=== PATIENT | female | born 1970 | race African-American/Black ===

== ENCOUNTER 2016-02-26 09:34 | Inpatient (IN) | payer OTHER ==
[2016-02-26 10:18] VITALS: BMI 41.5
--- NOTE | 2016-02-26 11:49 | HP ---
CIWA Score - CIWA Score Nausea/Vomitin-Int. Nausea w/Dry Heave Muscle Tremors: 3 Anxiety: 4-Mod. Anxious/Guarded Agitation: 4-Moderately Restless Paroxysmal Sweats: No Perspiration Orientation: 0-Oriented Tacttile Disturbances: 3-Moderate Itch/Numb/Burn Auditory Disturbances: 0-None Visual Disturbances: 0-None Headache: 2-Mild CIWA-Ar Total Score: 20 Admission ROS S - HPI Chief Complaint: DETOX TX FOR ALCOHOL AND COCAINE DEPENDENCE Allergies/Adverse Reactions: Allergies Allergy/AdvReac Type Severity Reaction Status Date / Time Penicillins Allergy Mild Hives Verified 01/22/16 21:31 Fish Containing Products Allergy Hives Verified 02/26/16 11:03 tomatoes Allergy Hives Uncoded 02/26/16 11:03 History of Present Illness: 45 Y/O AA/FEMALE WITH A HX OF ALCOHOL AND COCAINE DEPENDENCE SEEKING DETOX TX. PT STATES ON/OFF USE OF HEROIN. TOXICOLOGY IS NEGATIVE TODAY. Exam Limitations: No Limitations - Ebola screening Have you traveled outside of the country in the last 21 days: No Have you had contact with anyone from an Ebola affected area: No Have you been sick,other than usual withdrawal symptoms: No Do you have a fever: No - Review of Systems Constitutional: Chills, Loss of Appetite, Night Sweats, Changes in sleep EENT: reports: Blurred Vision, Tearing, Nose Congestion, Dental Problems ( MISSING TEETH) Respiratory: reports: Cough, Shortness of Breath (HX ASTMA), Wheezing Cardiac: reports: Lightheadedness GI: reports: Constipated, Diarrhea, Nausea, Poor Appetite, Poor Fluid Intake : reports: Frequency, Urgency Musculoskeletal: reports: Back Pain, Joint Pain, Muscle Pain Integumentary: reports: No Symptoms Reported Neuro: reports: Tremors, Unsteady Gait, Dizziness, Other (BLACKOUTS) Endocrine: reports: No Symptoms Reported Psychiatric: reports: Orientated x3, Anxious, Depressed (SOMETIMES), other (HX SCHIZOPHRENIA) Other Systems: Reviewed and Negative Patient History - Patient Medical History Hx Anemia: Yes (NO TREATMENT) Hx Asthma: Yes (ON MDI) Hx Chronic Obstructive Pulmonary Disease (COPD): No Hx Cancer: No Hx Cardiac Disorders: No Hx Congestive Heart Failure: No Hx Hypertension: No Hx Hypercholesterolemia: No Hx Pacemaker: No HX Cerebrovascular Accident: No Hx Seizures: No Hx Dementia: No Hx Diabetes: No Hx Gastrointestinal Disorders: No Hx Liver Disease: No Hx Genitourinary Disorders: No Hx Sexually Transmitted Disorders: Yes (GC as teenager) Hx Renal Disease (ESRD): No Hx Thyroid Disease: No Hx Human Immunodeficiency Virus (HIV): No Hx Hepatitis C: No Hx Depression: Yes (SOMETIMES) Hx Suicide Attempt: Yes (X2- WITH BENADRYL/?PILLS; DENIES CURRENT S/H IDEATIONS) Hx Bipolar Disorder: No Hx Schizophrenia: Yes - Patient Surgical History Past Surgical History: Yes Hx Neurologic Surgery: No Hx Cataract Extraction: No Hx Cardiac Surgery: No Hx Lung Surgery: No Hx Breast Surgery: No Hx Breast Biopsy: No Hx Abdominal Surgery: Yes (Sx for twisted intestine in 2003) Hx Appendectomy: No Hx Cholecystectomy: Yes (in 2003) Hx Genitourinary Surgery: No Hx Section: Yes (3) Hx Orthopedic Surgery: No Hx Hysterectomy: No Anesthesia Reaction: No - PPD History Previous Implant?: Yes Documented Results: Positive w/o proof Implanted On Prior [facility] Admission?: No PPD to be Administered?: No - Reproductive History Patient is a Female of Child Bearing Age (11 -55 yrs old): Yes Last Menstrual Period: 02/12/16 Patient : No - Smoking Cessation Smoking history: Current every day smoker Have you smoked in the past 12 months: Yes Aproximately how many cigarettes per day: 10 Cigars Per Day: 0 Hx Chewing Tobacco Use: No Initiated information on smoking cessation: Yes 'Breaking Loose' booklet given: 02/26/16 - Substance & Tx. History Hx Alcohol Use: Yes (VODKA/BEER) Hx Substance Use: Yes (CRACK) Substance Use Type: Alcohol, Cocaine Hx Substance Use Treatment: Yes ([facility]) - Substances Abused Alcohol Route: Oral Frequency: Daily Amount used: vodka(2 pints)/beer(6pk 16 oz cans) Age of first use: 14 Date of Last Use: 02/26/16 Crack Route: Smoking Frequency: Daily Amount used: $100-150 Age of first use: 19 Date of Last Use: 02/25/16 Family Disease History - Family Disease History Family Disease History: Heart Disease: Mother (), CA: Father () Admission Physical Exam BHS - Vital Signs Vital Signs: Vital Signs - 24 hr 02/26/16 10:14 Temperature 96.1 F L Pulse Rate 88 Respiratory 18 Rate Blood Pressure 109/53 - Physical General Appearance: Yes: Moderate Distress, Irritable, Anxious HEENTM: Yes: EOMI, Normocephalic, RALPH, Pharynx Normal Respiratory: Yes: Chest Non-Tender, Normal Breath Sounds, No Respiratory Distress, Rhonchi, Wheezing, Expiration Neck: Yes: Supple, Trachea in good position Breast: Yes: Breast Exam Deferred Cardiology: Yes: Regular Rhythm, Regular Rate, S1, S2 Abdominal: Yes: Normal Bowel Sounds, Non Tender, Soft, Protuberent Genitourinary: Yes: Other (N/C) Back: Yes: Within Normal Limits Musculoskeletal: Yes: full range of Motion, Gait Steady Extremities: Yes: Normal Range of Motion, Non-Tender Neurological: Yes: oil rag washer II-XII NML intact, Fully Oriented, Alert Integumentary: Yes: Dry, Warm Lymphatic: Yes: Within Normal Limits - Diagnostic (1) Asthma Current Visit: Yes Status: Chronic Qualifiers: Asthma severity: moderate persistent Asthma complication type: uncomplicated Qualified Code(s): J45.40 - Moderate persistent asthma, uncomplicated (2) Back pain Current Visit: Yes Status: Chronic Qualifiers: Back pain location: low back pain (3) Anemia Current Visit: Yes Status: Chronic Qualifiers: Anemia type: iron deficiency Iron deficiency anemia type: inadequate dietary iron intake Qualified Code(s): D50.8 - Other iron deficiency anemias Comment: NO TREATMENT LAB PENDING (4) Arthritis Current Visit: Yes Status: Chronic Comment: RIGHT KNEE (5) Nicotine dependence Current Visit: Yes Status: Chronic Qualifiers: Nicotine product type: cigarettes Substance use status: uncomplicated Qualified Code(s): F17.210 - Nicotine dependence, cigarettes, uncomplicated (6) Cocaine dependence, uncomplicated Current Visit: Yes Status: Acute (7) Alcohol dependence with uncomplicated withdrawal Current Visit: Yes Status: Acute Cleared for Admission [facility] - Detox or Rehab [facility] Level of Care: Medically Managed Detox Regimen/Protocol: Librium [facility] Breath Alcohol Content Breath Alcohol Content: 0.061 Urine Pregancy Test - Result Urine Test Results: Negative- NO Line Present Urine Drug Screen - Results Drug Screen Negative: No Urine Drug Screen Results: WYATT-Cocaine
[2016-02-26] MEDS ORDERED: hydrOXYzine PAMOATE 25 MG CAPSULE (FP) PO PRN (11:57)
[2016-02-26] MEDS ORDERED: MAG HYDROX/AL HYDROX/SIMETH 30 ML UNIT-DOSE CUP PO PRN (11:57)
[2016-02-26] MEDS ORDERED: diphenhydrAMINE HCL 50 MG CAPSULE PO PRN (11:57)
[2016-02-26] MEDS ORDERED: P-EPHED 60MG/TRIPROLIDI 2.5MG TABLET PO PRN (11:57)
[2016-02-26] MEDS ORDERED: MENTHOL/PHENOL 1 EACH UD MM PRN (11:57)
[2016-02-26] MEDS ORDERED: ACETAMINOPHEN 325 MG TABLET (FP) PO PRN (11:57)
[2016-02-26] MEDS ORDERED: LOPERAMIDE HCL 2 MG CAPSULE PO PRN (11:57)
[2016-02-26] MEDS ORDERED: MAGNESIUM HYDROX 2400MG/30ML ORAL SUSPENSION 30 ML CUP PO PRN (11:57)
[2016-02-26] MEDS ORDERED: chlordiazePOXIDE HCL 25 MG CAPSULE PO PRN (11:57)
[2016-02-26] MEDS ORDERED: IBUPROFEN 400 MG TABLET (FP) PO PRN (11:57)
[2016-02-26] MEDS ORDERED: NICOTINE POLACRILEX 2 MG GUM BUC PRN (11:57)
[2016-02-26] MEDS ORDERED: MAGNESIUM CITRATE 300 ML BOTTLE PO PRN (11:57)
[2016-02-26] MEDS ORDERED: guaiFENesin/D-METHORPHAN HB 10 ML UNIT-DOSE CUPS PO PRN (11:57)
[2016-02-26] MEDS ORDERED: chlordiazePOXIDE HCL 25 MG CAPSULE PO ONE (12:27)
[2016-02-26] MEDS: BUDESONIDE/FORMETEROL FUMARATE 80/4.5 mcg INHALER IH SCH ×2 (12:42→22:14)
[2016-02-26] MEDS: NICOTINE 14 MG/24 HOURS TOPICAL PATCH TD SCH (12:44)
[2016-02-26 14:31] LABS: HIV 1 & 2 AB NEGATIVE; HIV 1 AGp24 NEGATIVE
[2016-02-26] MEDS: ALBUTEROL SO4 2.5/IPRATROPIUM 0.5 INH SOL 3 ML VIAL.NEB. NEB SCH ×2 (15:05→18:42)
[2016-02-26] MEDS: chlordiazePOXIDE HCL 25 MG CAPSULE PO SCH ×2 (17:43→22:15)
[2016-02-26] MEDS: THIAMINE HCL 100 MG TABLET (FP) PO SCH (22:15)
[2016-02-26] MEDS: ALBUTEROL SO4 6.7 GM HFA INHALER IH PRN (22:16)
[2016-02-27] MEDS: ALBUTEROL SO4 2.5/IPRATROPIUM 0.5 INH SOL 3 ML VIAL.NEB. NEB PRN (05:01)
[2016-02-27] MEDS: chlordiazePOXIDE HCL 25 MG CAPSULE PO SCH ×4 (05:26→23:00)
[2016-02-27] MEDS: ALBUTEROL SO4 2.5/IPRATROPIUM 0.5 INH SOL 3 ML VIAL.NEB. NEB SCH (09:00)
[2016-02-27 10:01] LABS: MCHC 30.6 g/dl (32.0-36.0); MEAN CELL VOLUME 63.8 fl (80-96); MEAN PLT VOLUME 9.1 fl (7.5-11.1); PLATELET COUNT 286 K/MM3 (134-434); RDW 27.7 % (11.6-15.6); WHITE BLOOD COUNT 5.5 K/mm3 (4.0-10.0)
[2016-02-27 10:33] LABS: URINE APPEARANCE CLEAR; URINE BILIRUBIN NEGATIVE (NEGATIVE); URINE BLOOD NEGATIVE (NEGATIVE); URINE COLOR LT. YELLOW; URINE GLUCOSE (UA) NEGATIVE (NEGATIVE); URINE KETONE NEGATIVE (NEGATIVE); URINE LEUK ESTERASE NEGATIVE (NEGATIVE); URINE NITRITE NEGATIVE (NEGATIVE); URINE PROTEIN NEGATIVE (NEGATIVE); URINE UROBILINOGEN 0.2 E.U/dl E.U./dl (0.2-1.0)
[2016-02-27 10:35] LABS: MCH 19.5 pg (25.7-33.7)
[2016-02-27 10:36] LABS: ALBUMIN 3.6 g/dl (3.4-5.0); ALK PHOS 81 U/L (45-117); ANION GAP 9 (8-16); BILIRUBIN,TOTAL 0.2 mg/dL (0.2-1.0); CALCIUM 7.9 mg/dL (8.5-10.1); CO2 20 mmol/L (21-32); CREATININE 0.7 mg/dL (0.55-1.02); GLUCOSE,RANDOM 81 mg/dL (74-106); SGOT/AST 11 U/L (15-37); SGPT/ALT 17 U/L (12-78); TOT PROT 6.3 g/dl (6.4-8.2)
[2016-02-27] MEDS: NICOTINE 14 MG/24 HOURS TOPICAL PATCH TD SCH (10:50)
[2016-02-27] MEDS: PRENATAL VITAMINS W/ FOLIC ACID TABLET (FP) PO SCH (10:51)
[2016-02-27] MEDS: BUDESONIDE/FORMETEROL FUMARATE 80/4.5 mcg INHALER IH SCH ×2 (10:55→23:01)
--- NOTE | 2016-02-27 11:13 | CONSULT ---
[facility] Psychiatric Consult - Data Date of interview: 02/27/16 Admission source: [facility] Identifying data: Readmission to [facility] for this 45 y/o AA female seeking detox treatment on for alcohol and cocaine dependence.Patient is single, a mother of eight,domiciled,unemployed and supported on SSI benefits. Substance Abuse History: - Smoking Cessation. Smoking history: Current every day smoker. Have you smoked in the past 12 months: Yes. Aproximately how many cigarettes per day: 10. Cigars Per Day: 0. Hx Chewing Tobacco Use: No. Initiated information on smoking cessation: Yes. 'Breaking Loose' booklet given : 02/26/16. - Substance & Tx. History. Hx Alcohol Use: Yes (VODKA/BEER). Hx Substance Use: Yes (CRACK). Substance Use Type: Alcohol, Cocaine. Hx Substance Use Treatment: Yes ([facility]-DETOX). - Substances Abused. Alcohol. Route: Oral. Frequency: Daily. Amount used: vodka(2 pints)/beer(6pk 16 oz cans ). Age of first use: 14. Date of Last Use: 02/26/16. Crack. Route: Smoking. Frequency: Daily. Amount used: $100-150. Age of first use: 19. Date of Last Use: 02/25/16. Confirmed by patient. Medical History: Remarkable for a history of bronchial asthma,anemia,obesity and past treatment for gonorrhea (during adolescence). Psychiatric History: Patient admits to a history of multiple psychiatric hospitalizations since age 17 (reported onset of mental illness).Diagnosed with schizophrenia." I have been admitted to almost every hospital." Ms Marsh is known to [facility] and [facility] (as of 2016).She gets outpatient psychiatric services at [facility].Maintenance medications (as reported by patient) are :abilify 10 mg /day + seroquel 200 mg/hs (100 mg/hs as per pharmacy claims of 01/2016).Patient denies history of suicide attempts. Physical/Sexual Abuse/Trauma History: Patient denies. Additional Comment: Urine Drug Screen Results: WYATT-Cocaine. .Noted. Mental Status Exam - Mental Status Exam Alert and Oriented to: Time, Place, Person Cognitive Function: Good Patient Appearance: Well Groomed (obese) Mood: Withdrawn Affect: Appropriate, Normal Range Patient Behavior: Sedated (mild sedation), Fatigued Speech Pattern: Clear Voice Loudness: Normal Thought Process: Goal Oriented Thought Disorder: Bizarre Hallucinations: Denies Suicidal Ideation: Denies Homicidal Ideation: Denies Insight/Judgement: Poor Sleep: Fair Appetite: Good Muscle strength/Tone: Normal Gait/Station: Normal Psychiatric Findings - Problem List ([place] 1, 2,3) (1) Alcohol dependence with uncomplicated withdrawal Current Visit: Yes Status: Acute (2) Cocaine dependence, uncomplicated Current Visit: Yes Status: Acute (3) Nicotine dependence Current Visit: Yes Status: Acute Qualifiers: Nicotine product type: cigarettes Substance use status: uncomplicated Qualified Code(s): F17.210 - Nicotine dependence, cigarettes, uncomplicated (4) Schizophrenia Current Visit: Yes Status: Chronic (5) Anemia Current Visit: Yes Status: Chronic Qualifiers: Anemia type: iron deficiency Iron deficiency anemia type: inadequate dietary iron intake Qualified Code(s): D50.8 - Other iron deficiency anemias Comment: NO TREATMENT LAB PENDING (6) Arthritis Current Visit: Yes Status: Chronic Comment: RIGHT KNEE (7) Asthma Current Visit: Yes Status: Chronic Qualifiers: Asthma severity: moderate persistent Asthma complication type: uncomplicated Qualified Code(s): J45.40 - Moderate persistent asthma, uncomplicated (8) Back pain Current Visit: Yes Status: Chronic Qualifiers: Back pain location: low back pain - Initial Treatment Plan Initial Treatment Plan: Psychoeducation.Detoxification.Medications : abilify 10 mg po daily + seroquel 100 mg po hs.Side effects/benefits discussed with patient.She agrees with his careplan.Observation.
[2016-02-27 11:42] LABS: ANISOCYTOSIS 3+; HYPOCHROMIA 3+; MICROCYTOSIS 2+; OVALOCYTES FEW
[2016-02-27] MEDS ORDERED: predniSONE 20 MG TABLET (UD) PO ONE (11:46)
--- NOTE | 2016-02-27 14:01 | PN ---
[facility] CIWA - CIWA Score Nausea/Vomitin Muscle Tremors: 3 Anxiety: 3 Agitation: 3 Paroxysmal Sweats: 3 Orientation: 0-Oriented Tacttile Disturbances: 1-Very Mild Itch/Numbness Auditory Disturbances: 0-None Visual Disturbances: 0-None Headache: 0-None Present CIWA-Ar Total Score: 16 S Progress Note (SOAP) Subjective: interrupted sleep,sweats, shakes wheezing Objective: 02/27/16 13:52 Vital Signs Temperature 96.3 F L 02/27/16 06:55 Pulse Rate 90 02/27/16 09:46 Respiratory Rate 20 02/27/16 09:46 Blood Pressure 109/76 02/27/16 09:46 O2 Sat by Pulse Oximetry (%) Laboratory Tests 02/26/16 02/27/16 02/27/16 12:15 06:00 06:00 WBC 5.5 RBC 4.59 Hgb 9.0 L Hct 29.3 L MCV 63.8 L MCHC 30.6 L RDW 27.7 H Plt Count 286 MPV 9.1 Hypochromic-Microcytic 3+ Anisocytosis 3+ Microcytosis 2+ Ovalocytes Few Sodium 141 Potassium 4.0 Chloride 112 H Carbon Dioxide 20 L D Anion Gap 9 BUN 13 D Creatinine 0.7 Creat Clearance w eGFR > 60 Random Glucose 81 Calcium 7.9 L Total Bilirubin 0.2 AST 11 L D ALT 17 Alkaline Phosphatase 81 D Total Protein 6.3 L Albumin 3.6 Urine Color Urine Appearance Urine pH Ur Specific [place] Urine Protein Urine Glucose (UA) Urine Ketones Urine Blood Urine Nitrite Urine Bilirubin Urine Urobilinogen Ur Leukocyte Esterase RPR Titer HIV 1&2 Antibody Screen Negative HIV P24 Antigen Negative 02/27/16 02/27/16 06:00 08:00 WBC RBC Hgb Hct MCV MCHC RDW Plt Count MPV Hypochromic-Microcytic Anisocytosis Microcytosis Ovalocytes Sodium Potassium Chloride Carbon Dioxide Anion Gap BUN Creatinine Creat Clearance w eGFR Random Glucose Calcium Total Bilirubin AST ALT Alkaline Phosphatase Total Protein Albumin Urine Color Lt. yellow Urine Appearance Clear Urine pH 6.0 Ur Specific [place] 1.015 Urine Protein Negative Urine Glucose (UA) Negative Urine Ketones Negative Urine Blood Negative Urine Nitrite Negative Urine Bilirubin Negative Urine Urobilinogen 0.2 e.u/dl Ur Leukocyte Esterase Negative RPR Titer Nonreactive HIV 1&2 Antibody Screen HIV P24 Antigen pt aox3 , mod whheezing ,sitting up in bed Assessment: 02/27/16 13:53 withdrawl sx's Plan: cont, detox increase fluids duoneb prednisone 40mg /d symbicort bid
[2016-02-27] MEDS: FERROUS SO4 325 MG TABLET (FP) PO SCH (17:38)
[2016-02-27] MEDS: ALBUTEROL SO4 6.7 GM HFA INHALER IH PRN (17:38)
[2016-02-27] MEDS: THIAMINE HCL 100 MG TABLET (FP) PO SCH (23:01)
[2016-02-27] MEDS: QUEtiapine FUMARATE 100 MG TABLET (FP) PO SCH ×2 (23:01→23:30)
[2016-02-28] MEDS: chlordiazePOXIDE HCL 25 MG CAPSULE PO SCH ×2 (05:40→10:45)
[2016-02-28] MEDS: ALBUTEROL SO4 6.7 GM HFA INHALER IH PRN (05:42)
[2016-02-28] MEDS ORDERED: predniSONE 20 MG TABLET (UD) PO SCH (10:00)
[2016-02-28] MEDS ORDERED: ARIPiprazole 10 MG TABLET PO SCH (10:00)
--- NOTE | 2016-02-28 10:20 | EKG ---
Test Reason : Blood Pressure : / mmHG Vent. Rate : 077 BPM Atrial Rate : 077 BPM P-R Int : 172 ms QRS Dur : 092 ms QT Int : 390 ms P-R-T Axes : 063 008 011 degrees QTc Int : 441 ms NORMAL SINUS RHYTHM NORMAL ECG WHEN COMPARED WITH ECG OF 23-JAN-2016 02:28, NO SIGNIFICANT CHANGE WAS FOUND Confirmed by SHANON ABAD MD ([id number]) on 02/28/2016 10:20:13 AM Referred By: Confirmed By:SHANON ABAD MD
[2016-02-28] MEDS: BUDESONIDE/FORMETEROL FUMARATE 80/4.5 mcg INHALER IH SCH ×2 (10:45→23:00)
[2016-02-28] MEDS: PRENATAL VITAMINS W/ FOLIC ACID TABLET (FP) PO SCH (10:45)
[2016-02-28] MEDS: FERROUS SO4 325 MG TABLET (FP) PO SCH ×3 (10:45→18:00)
[2016-02-28] MEDS: NICOTINE 14 MG/24 HOURS TOPICAL PATCH TD SCH (10:48)
--- NOTE | 2016-02-28 11:47 | PN ---
[facility] CIWA - CIWA Score Nausea/Vomitin Muscle Tremors: 2 Anxiety: 2 Agitation: 2 Paroxysmal Sweats: 2 Orientation: 0-Oriented Tacttile Disturbances: 1-Very Mild Itch/Numbness Auditory Disturbances: 0-None Visual Disturbances: 0-None Headache: 0-None Present CIWA-Ar Total Score: 11 [facility] Progress Note (SOAP) Subjective: interrupted sleep, mild sweats but better Objective: 02/28/16 11:46 Vital Signs Temperature 99 F 02/28/16 10:22 Pulse Rate 101 H 02/28/16 10:22 Respiratory Rate 18 02/28/16 10:22 Blood Pressure 139/60 02/28/16 10:22 O2 Sat by Pulse Oximetry (%) Laboratory Tests 02/26/16 02/27/16 02/27/16 12:15 06:00 06:00 WBC 5.5 RBC 4.59 Hgb 9.0 L Hct 29.3 L MCV 63.8 L MCHC 30.6 L RDW 27.7 H Plt Count 286 MPV 9.1 Hypochromic-Microcytic 3+ Anisocytosis 3+ Microcytosis 2+ Ovalocytes Few Sodium 141 Potassium 4.0 Chloride 112 H Carbon Dioxide 20 L D Anion Gap 9 BUN 13 D Creatinine 0.7 Creat Clearance w eGFR > 60 Random Glucose 81 Calcium 7.9 L Total Bilirubin 0.2 AST 11 L D ALT 17 Alkaline Phosphatase 81 D Total Protein 6.3 L Albumin 3.6 Urine Color Urine Appearance Urine pH Ur Specific [place] Urine Protein Urine Glucose (UA) Urine Ketones Urine Blood Urine Nitrite Urine Bilirubin Urine Urobilinogen Ur Leukocyte Esterase RPR Titer HIV 1&2 Antibody Screen Negative HIV P24 Antigen Negative 02/27/16 02/27/16 06:00 08:00 WBC RBC Hgb Hct MCV MCHC RDW Plt Count MPV Hypochromic-Microcytic Anisocytosis Microcytosis Ovalocytes Sodium Potassium Chloride Carbon Dioxide Anion Gap BUN Creatinine Creat Clearance w eGFR Random Glucose Calcium Total Bilirubin AST ALT Alkaline Phosphatase Total Protein Albumin Urine Color Lt. yellow Urine Appearance Clear Urine pH 6.0 Ur Specific [place] 1.015 Urine Protein Negative Urine Glucose (UA) Negative Urine Ketones Negative Urine Blood Negative Urine Nitrite Negative Urine Bilirubin Negative Urine Urobilinogen 0.2 e.u/dl Ur Leukocyte Esterase Negative RPR Titer Nonreactive HIV 1&2 Antibody Screen HIV P24 Antigen pt aox3 in nad ambulating Assessment: 02/28/16 11:46 withdrawl sx's Plan: cont. detox increase fluids
[2016-02-28] MEDS: chlordiazePOXIDE 5 MG CAPSULE PO SCH ×2 (18:00→23:01)
[2016-02-28] MEDS: THIAMINE HCL 100 MG TABLET (FP) PO SCH (23:00)
[2016-02-28] MEDS: QUEtiapine FUMARATE 100 MG TABLET (FP) PO SCH (23:00)
[2016-02-29] MEDS: ALBUTEROL SO4 2.5/IPRATROPIUM 0.5 INH SOL 3 ML VIAL.NEB. NEB PRN (03:39)
[2016-02-29 06:00] VITALS: BP 137/78; PULSE 95; TEMP 97.9
--- NOTE | 2016-02-29 07:54 | PN ---
[id number]. HAD JUST COMPLETED HER DUONEB NEB. TX. NO SIGNS OF RESPIRATORY DISTRESS NOTED. V/S WNL, BREATHING WAS UNLABORED AND NO RETRACTIONS NOTED. WHEEZING NOTED TO LEFT UPPER LUNG. [facility] INFORMED THE PT SHE WOULD CONTINUE TO BE MONITORED AT DETOX AND A TRANSFER TO THE ER WAS NOT MERITED AT THE MOMENT. HOWEVER THE PATIENT WAS ADAMANT SHE WANTED TO LEAVE. SHE REPORTED SHE LIVES [place]BY. [facility] DIALED HER HOME PHONE NUMBER AND THE PT SPOKE TO A RELATIVE AND SHE ASKED THAT THEY HAVE PICK HER UP FROM DETOX AND WALK WITH HER HOME. PT. ENCOURAGED TO FOLLOW-UP WITH HER PCP. Last Vital Signs Temp Pulse Resp BP Pulse Ox 97.9 F 95 H 20 137/78 97% 02/29/16 05:59 02/29/16 05:59 02/29/16 05:59 02/29/16 05:59
--- NOTE | 2016-02-29 08:07 | DS ---
[facility] Detox Discharge Summary Admission Date: 02/26/16 Discharge Date: 02/29/16 - History Present History: Alcohol Dependence, Cocaine Dependence - Physical Exam Results Vital Signs: Vital Signs Temperature 97.9 F 02/29/16 05:59 Pulse Rate 95 H 02/29/16 05:59 Respiratory Rate 20 02/29/16 05:59 Blood Pressure 137/78 02/29/16 05:59 O2 Sat by Pulse Oximetry (%) - Treatment Hospital Course: Detox Protocol Followed - Medication Discharge Medications: Ambulatory Orders Aripiprazole [Abilify -] 15 mg PO DAILY 09/18/11 Benztropine Mesylate [Cogentin -] 2 mg PO BID 09/18/11 Quetiapine Fumarate [Seroquel -] 200 mg PO HS 09/18/11 Lamotrigine [Lamictal -] 25 mg PO BID #60 tablet 12/12/15 Ferrous Sulfate [Feosol] 325 mg PO TIDCM #90 ud 12/15/15 Albuterol Sulfate Inhaler - [Ventolin HFA Inhaler -] 2 puff IH Q4H PRN #1 inhaler 01/24/16 Budesonide/Formeterol Fumarate [SYMBICORT 80/4.5mcg -] 2 puff IH BID #1 inhaler 01/24/16 Oxycodone HCl [Roxicodone -] 10 mg PO BID #6 tablet MDD 2 01/25/16 Prednisone [Deltasone -] 15 mg PO ASDIR PRN 02/26/16 Aripiprazole [Abilify -] 10 mg PO DAILY #30 tablet 02/27/16 Quetiapine Fumarate [Seroquel] 100 mg PO HS #30 tablet 02/27/16 - Diagnosis (1) Alcohol dependence with uncomplicated withdrawal Status: Chronic (2) Cocaine dependence, uncomplicated Status: Chronic (3) Nicotine dependence Status: Chronic Qualifiers: Nicotine product type: cigarettes Substance use status: uncomplicated Qualified Code(s): F17.210 - Nicotine dependence, cigarettes, uncomplicated (4) Anemia Status: Chronic Qualifiers: Anemia type: iron deficiency Iron deficiency anemia type: inadequate dietary iron intake Qualified Code(s): D50.8 - Other iron deficiency anemias (5) Arthritis Status: Chronic (6) Asthma Status: Chronic Qualifiers: Asthma severity: moderate persistent Asthma complication type: uncomplicated Qualified Code(s): J45.40 - Moderate persistent asthma, uncomplicated (7) Schizophrenia Status: Chronic - AMA Did Patient Leave Against Medical Advice: Yes (wants to go to ED to get iv steriods )
[2016-02-29] MEDS ORDERED: chlordiazePOXIDE HCL 10 MG CAPSULE PO SCH (17:00)
== END 2016-02-29 04:40 | disposition left against medical advice (07) | DRG 770 ==
LOC: YASAS 09:34 → Y6N 11:11
PROVIDERS: ADMIT Internal Medicine Addiction Medicine; ATTEND Internal Medicine Addiction Medicine
PROC: HZ2ZZZZ Detoxification Services for Substance Abuse Treatment (ICD-10-PCS; principal; 2016-02-26)
DX: F10.230 Alcohol dependence with withdrawal, uncomplicated (principal); F14.20 Cocaine dependence, uncomplicated; F17.210 Nicotine dependence, cigarettes, uncomplicated; F20.9 Schizophrenia, unspecified; D50.8 Other iron deficiency anemias; M12.9 Arthropathy, unspecified; J45.40 Moderate persistent asthma, uncomplicated; E66.9 Obesity, unspecified; Z68.41 Body mass index [BMI] 40.0-44.9, adult; M54.5 Low back pain; Z87.42 Personal history of other diseases of the female genital tract; Z91.5 Personal history of self-harm
CPT/HCPCS: 36415; 80053; 81003; 85027; 86593; 87389; 93005; 93010; 94640

== ENCOUNTER 2016-04-24 15:12 | Emergency (ER) | payer OTHER ==
[2016-04-24 16:00] VITALS: BMI 42.9
--- NOTE | 2016-04-24 16:00 | PDOC ---
Rapid Medical Evaluation Time Seen by Provider: 04/24/16 15:57 Medical Evaluation: I have performed a brief in-person evaluation of this patient. The patient presents with a chief complaint of: 45 yo F history SBO, cholecystectomy presents with 2-3 hours of lower abdominal pain. Pertinent physical exam findings: Appears uncomfortable. Diffusely tender to abdomen, worst in LUQ. I have ordered the following: UA, basic bloodwork The patient will proceed to the ED for further evaluation
--- NOTE | 2016-04-24 17:25 | PDOC ---
History of Present Illness - General History Source: Patient Exam Limitations: No Limitations - History of Present Illness Initial Comments: 04/24/16 18:30 The patient is a 45 year old female with significant past medical history of schizophrenia, COPD, asthma, and fibroids who presents to the emergency department with abdominal pain for the last 2-3 hours. The patient states that her pain is localized to the suprapubic region and radiates up her abdomen. She reports associated nausea but denies any vomiting. She denies diarrhea or constipation. The patient states that her LMP was Feb 15. She has never had pain like this before. She denies recent illness, fevers, or chills. <Clarice Bland - Last Filed: 04/24/16 18:30> <Hema Topete - Last Filed: 04/24/16 19:02> - General Chief Complaint: Pain, Acute Stated Complaint: ABD PAIN Time Seen by Provider: 04/24/16 15:57 Past History <Clarice Bland - Last Filed: 04/24/16 18:30> - Past Medical History Anemia: Yes (NO TREATMENT) Asthma: Yes (ON MDI) Cancer: No Cardiac Disorders: No CVA: No COPD: Yes CHF: No Dementia: No Diabetes: No GI Disorders: No Disorders: No HTN: No Hypercholesterolemia: No Kidney Stones: Yes (2013) Liver Disease: No Psychiatric Problems: Yes Suicide Attempt (Hx): Yes (X2- WITH BENADRYL/?PILLS; DENIES CURRENT S/H IDEATIONS) Seizures: No Thyroid Disease: No - Surgical History Abdominal Surgery: Yes (Sx for twisted intestine in 2003) Appendectomy: No Cardiac Surgery: No Cholecystectomy: Yes (in 2003) Lung Surgery: No Neurologic Surgery: No Orthopedic Surgery: No - Reproductive History PID: No - Immunization History Immunization Up to Date: Yes - Psycho/Social/Smoking Cessation Hx Anxiety: No Suicidal Ideation: No Smoking History: Current every day smoker Have you smoked in the past 12 months: Yes Number of Cigarettes Smoked Daily: 10 Cigars Per Day: 0 Information on smoking cessation initiated: Yes 'Breaking Loose' booklet given: 02/26/16 Hx Alcohol Use: No Drug/Substance Use Hx: No Substance Use Type: Alcohol, Cocaine Hx Substance Use Treatment: Yes ([facility]) <Hema Topete - Last Filed: 04/24/16 19:02> - Past Medical History Allergies/Adverse Reactions: Allergies Allergy/AdvReac Type Severity Reaction Status Date / Time Penicillins Allergy Mild Hives Verified 04/24/16 15:59 Fish Containing Products Allergy Hives Verified 04/24/16 15:59 tomatoes Allergy Hives Uncoded 04/24/16 15:59 Home Medications: Ambulatory Orders Aripiprazole [Abilify -] 15 mg PO DAILY 09/18/11 Benztropine Mesylate [Cogentin -] 2 mg PO BID 09/18/11 Quetiapine Fumarate [Seroquel -] 200 mg PO HS 09/18/11 Lamotrigine [Lamictal -] 25 mg PO BID #60 tablet 12/12/15 Ferrous Sulfate [Feosol] 325 mg PO TIDCM #90 ud 12/15/15 Albuterol Sulfate Inhaler - [Ventolin HFA Inhaler -] 2 puff IH Q4H PRN #1 inhaler 01/24/16 Oxycodone HCl [Roxicodone -] 10 mg PO BID #6 tablet MDD 2 01/25/16 Prednisone [Deltasone -] 15 mg PO ASDIR PRN 02/26/16 Aripiprazole [Abilify -] 10 mg PO DAILY #30 tablet 02/27/16 Quetiapine Fumarate [Seroquel] 100 mg PO HS #30 tablet 02/27/16 Albuterol Sulfate Inhaler - [Ventolin HFA Inhaler -] 2 puff IH Q4H PRN #1 inhaler 02/29/16 Budesonide/Formeterol Fumarate [SYMBICORT 80/4.5mcg -] 2 puff IH BID #1 inhaler 02/29/16 Ferrous Sulfate [Feosol] 325 mg PO TIDCM #90 ud 02/29/16 Review of Systems - Review of Systems Constitutional: No: Chills, Fever Respiratory: No: Cough, Shortness of Breath ABD/GI: Yes: Nausea. No: Constipated, Diarrhea, Vomiting : No: Dysuria, Frequency All Other Systems: Reviewed and Negative <Hema Topete - Last Filed: 04/24/16 19:02> *Physical Exam - Vital Signs Last Vital Signs Temp Pulse Resp BP Pulse Ox 97.8 F 60 16 138/79 98 04/24/16 15:56 04/24/16 18:23 04/24/16 18:23 04/24/16 18:23 04/24/16 18:23 - Physical Exam Comments: 04/24/16 18:30 GENERAL: The patient is awake, alert, and fully oriented, in no acute distress. HEAD: Normal with no signs of trauma. EYES: Pupils equal, round and reactive to light, extraocular movements intact, sclera anicteric, conjunctiva clear with no pallor. ENT: Ears normal, nares patent, oropharynx clear without exudates. Moist mucous membranes. NECK: Normal range of motion, supple without lymphadenopathy, JVD, or masses. LUNGS: +Scattered and scant end expiratory wheezing, otherwise breath sounds equal, no crackles. HEART: Regular rate and rhythm, normal S1 and S2 without murmur or rub. ABDOMEN: +Tenderness and guarding in the suprapubic region and LLQ, otherwise diffuse discomfort to palpation in the abdomen with no rebound. Soft, nondistended. BS wnl. No palpable masses. No hepatosplenomegaly. EXTREMITIES: Normal range of motion, no edema. No clubbing or cyanosis. No cords, erythema, or tenderness. NEUROLOGICAL: Cranial nerves II through XII grossly intact. Normal speech, normal gait. PSYCH: Normal mood, normal affect. SKIN: Warm, Dry, normal turgor, no rashes or lesions noted. <Clarice Bland - Last Filed: 04/24/16 18:30> - Vital Signs Last Vital Signs Temp Pulse Resp BP Pulse Ox 97.8 F 66 18 148/85 100 04/24/16 15:56 04/24/16 15:56 04/24/16 15:56 04/24/16 15:56 04/24/16 15:56 <Hema Topete - Last Filed: 04/24/16 19:02> Medical Decision Making - Medical Decision Making 04/24/16 18:59 A portion of this note was documented by scribe services under my direction. I have reviewed the details of the note, within reason, and agree with the documentation with the following case summary and management plan written by me. 45-year-old female with history of schizophrenia and known fibroids presents with LMP 04/04/16 complaining of lower abdominal pain radiating upper abdomen, not associated with any fevers or chills or nausea or vomiting or diarrhea or constipation. No urinary complaints. Has history of "intestinal knot" following a that required small bowel resection. Vital signs normal. Exam as noted with lower abdominal tenderness with some guarding greatest in the suprapubic and left lower quadrant 45-year-old female with lower abdominal pain. 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 Labs, urinalysis Pain control CT of the abdomen and pelvis Dispo accordingly <Hema Topete - Last Filed: 04/24/16 19:02> *DC/Admit/Observation/Transfer - Attestations Scribe Attestion: 04/24/16 18:30 Documentation prepared by Clarice Bland, acting as medical records specialist for Hema Topete MD. <Clarice Bland - Last Filed: 04/24/16 18:30> <Hema Topete - Last Filed: 04/24/16 19:02> Diagnosis at time of Disposition: Lower abdominal pain - Discharge Dispostion Condition at time of disposition: Stable
[2016-04-24] MEDS ORDERED: morphine CARPU-JECT 4 MG/1 ML DISP.SYRIN IVPUSH ONE (18:42)
[2016-04-24] MEDS ORDERED: SODIUM CHLORIDE 1,000 ML IV ONE (18:42)
[2016-04-24] MEDS ORDERED: morphine CARPU-JECT 4 MG/1 ML DISP.SYRIN ONE (18:50)
[2016-04-24] MEDS ORDERED: HYDROmorphone HCL CARPU-JECT 1 MG/1 ML DISP.SYRIN IVPUSH ONE ×2 (20:14→23:42)
[2016-04-24 20:26] LABS: URINE APPEARANCE CLEAR; URINE BILIRUBIN NEGATIVE (NEGATIVE); URINE BLOOD NEGATIVE (NEGATIVE); URINE COLOR YELLOW; URINE GLUCOSE (UA) NEGATIVE (NEGATIVE); URINE KETONE NEGATIVE (NEGATIVE); URINE LEUK ESTERASE NEGATIVE (NEGATIVE); URINE NITRITE NEGATIVE (NEGATIVE); URINE PROTEIN NEGATIVE (NEGATIVE); URINE UROBILINOGEN NEGATIVE E.U./dl (0.2-1.0)
[2016-04-24 20:40] LABS: BASOPHIL 0.9 % (0-2.0); EOSINOPHIL 4.2 % (0-4.5); MCHC 30.7 g/dl (32.0-36.0); MEAN CELL VOLUME 63.2 fl (80-96); MEAN PLT VOLUME 8.5 fl (7.5-11.1); PLATELET COUNT 230 K/MM3 (134-434); RDW 20.6 % (11.6-15.6); WHITE BLOOD COUNT 4.2 K/mm3 (4.0-10.0)
[2016-04-24 20:45] LABS: MCH 19.4 pg (25.7-33.7)
[2016-04-24] MEDS ORDERED: HYDROmorphone HCL CARPU-JECT 1 MG/1 ML DISP.SYRIN ONE (20:48)
[2016-04-24 20:52] LABS: ALBUMIN 3.4 g/dl (3.4-5.0); ALK PHOS 54 U/L (45-117); ANION GAP 8 (8-16); BILIRUBIN,TOTAL 0.2 mg/dL (0.2-1.0); CALCIUM 8.2 mg/dL (8.5-10.1); CO2 26 mmol/L (21-32); CREATININE 0.6 mg/dL (0.55-1.02); GLUCOSE,RANDOM 101 mg/dL (74-106); SGOT/AST 11 U/L (15-37); SGPT/ALT 11 U/L (12-78)
[2016-04-24 22:40] LABS: ANISOCYTOSIS 2+; HYPOCHROMIA 3+; MICROCYTOSIS 2+; PLATELET ESTIMATE ADEQUATE (NORMAL); POIKILOCYTOSIS 2+
[2016-04-24 22:41] LABS: OVALOCYTES 1+; TEAR DROP CELLS FEW
[2016-04-25] MEDS ORDERED: HYDROmorphone HCL CARPU-JECT 1 MG/1 ML DISP.SYRIN ONE (00:03)
[2016-04-25 05:37] VITALS: BP 122/75; PULSE 67; TEMP 98.1
--- NOTE | 2016-04-25 05:51 | PDOC ---
*Physical Exam - Vital Signs Last Vital Signs Temp Pulse Resp BP Pulse Ox 98.1 F 67 16 122/75 100 04/25/16 05:36 04/25/16 05:36 04/25/16 05:36 04/25/16 05:36 04/25/16 05:36 ED Treatment Course - LABORATORY CBC & Chemistry Diagram: 04/24/16 20:10 04/24/16 20:10 - ADDITIONAL ORDERS Additional order review: Laboratory Results 04/24/16 04/24/16 20:10 20:10 Sodium 144 Potassium 3.5 Chloride 110 H Carbon Dioxide 26 D Anion Gap 8 BUN 7 D Creatinine 0.6 Creat Clearance w eGFR > 60 Random Glucose 101 D Calcium 8.2 L Total Bilirubin 0.2 AST 11 L ALT 11 L D Alkaline Phosphatase 54 D Total Protein 6.0 L Albumin 3.4 Lipase 118 Urine Color Yellow Urine Appearance Clear Urine pH 6.0 Ur Specific [place] 1.027 Urine Protein Negative Urine Glucose (UA) Negative Urine Ketones Negative Urine Blood Negative Urine Nitrite Negative Urine Bilirubin Negative Urine Urobilinogen Negative Ur Leukocyte Esterase Negative Urine HCG, Qual Negative 04/24/16 20:10 RBC 4.38 MCV 63.2 L MCHC 30.7 L RDW 20.6 H D MPV 8.5 Neutrophils % 33.0 L D Lymphocytes % 50.1 H D Monocytes % 11.8 H Eosinophils % 4.2 Basophils % 0.9 - Medications Given in the ED: ED Medications Discontinued Medications Generic Name Dose Route Start Last Admin Trade Name Freq PRN Reason Stop Dose Admin Diphenhydramine HCl 25 mg 04/25/16 01:58 04/25/16 02:03 Benadryl Injection - IVPB 04/25/16 01:59 25 mg ONCE ONE Administration Hydromorphone HCl 1 mg 04/24/16 20:14 04/24/16 20:51 Dilaudid Injection - IVPUSH 04/24/16 20:15 1 mg ONCE ONE Administration Hydromorphone HCl 1 mg 04/24/16 23:42 04/25/16 00:07 Dilaudid Injection - IVPUSH 04/24/16 23:43 1 mg ONCE ONE Administration Sodium Chloride 1,000 mls @ 1,000 mls/hr 04/24/16 18:42 04/24/16 18:51 Normal Saline - IV 04/24/16 19:41 1,000 mls/hr ONCE ONE Administration Morphine Sulfate 4 mg 04/24/16 18:42 04/24/16 18:51 Morphine Injection - IVPUSH 04/24/16 18:43 4 mg ONCE ONE Administration *DC/Admit/Observation/Transfer Diagnosis at time of Disposition: Lower abdominal pain, Cyst of left ovary - Discharge Dispostion Disposition: HOME Condition at time of disposition: Stable Admit: No - Referrals Referrals: Zia Tolbert MD [Staff Physician] - - Patient Instructions Printed Discharge Instructions: DI for Ovarian Cyst
== END 2016-04-25 06:34 | disposition home or self-care (01) ==
LOC: JER 15:12
PROC: 3E033GC Introduction of Other Therapeutic Substance into Peripheral Vein, Percutaneous Approach (ICD-10-PCS; principal; 2016-04-24)
PROC: 3E033NZ Introduction of Analgesics, Hypnotics, Sedatives into Peripheral Vein, Percutaneous Approach (ICD-10-PCS; 2016-04-24)
PROC: 3E0337Z Introduction of Electrolytic and Water Balance Substance into Peripheral Vein, Percutaneous Approach (ICD-10-PCS; 2016-04-24)
DX: R10.30 Lower abdominal pain, unspecified (principal); F17.210 Nicotine dependence, cigarettes, uncomplicated; J44.9 Chronic obstructive pulmonary disease, unspecified; J45.909 Unspecified asthma, uncomplicated; F20.9 Schizophrenia, unspecified
CPT/HCPCS: 36415; 74177-TC; 80053; 81003; 83690; 84703; 85025; 99282-25

== ENCOUNTER 2016-05-02 00:32 | Emergency (ER) | payer OTHER ==
[2016-05-02 00:40] VITALS: BP 109/69; PULSE 70; TEMP 98.2; BMI 41.5
[2016-05-02] MEDS ORDERED: OXYCODONE/APAP 5/325MG COMBO TABLET PO ONE (00:41)
--- NOTE | 2016-05-02 00:41 | PDOC ---
History of Present Illness - General History Source: Patient Exam Limitations: No Limitations - History of Present Illness Initial Comments: 05/02/16 00:44 The patient is a 45 year old female with significant past medical history of schizophrenia, COPD/asthma, and fibroids who presents to the ED with left knee pain. Patient reports she stepped up onto her bed, when she turned the wrong way and twisted her left knee. She now has complaints of left knee pain. Denies LOC, dizziness, falling, or trauma to the area. The patient denies fever, chills, cough, SOB, chest pain, and palpitations. The patient denies abdominal pain, nausea, vomiting, and diarrhea. Allergies: penicillin Social History: Current smoker (half ppd). Etoh use. Cocaine use. Past Surgical History: Sx for twisted intestine in 2003, cholecystectomy PCP: Dr. Hoang Jeronimo <Susana Meraz - Last Filed: 05/02/16 02:05> - General History Source: Patient <Will Pickard - Last Filed: 05/02/16 02:20> - General Chief Complaint: Injury Stated Complaint: L KNEE PAIN Time Seen by Provider: 05/02/16 00:41 Past History <Susana Meraz - Last Filed: 05/02/16 02:05> - Past Medical History Anemia: Yes (NO TREATMENT) Asthma: Yes (ON MDI) Cancer: No Cardiac Disorders: No CVA: No COPD: Yes CHF: No Dementia: No Diabetes: No GI Disorders: No Disorders: No HTN: No Hypercholesterolemia: No Kidney Stones: Yes (2013) Liver Disease: No Psychiatric Problems: Yes Suicide Attempt (Hx): Yes (X2- WITH BENADRYL/?PILLS; DENIES CURRENT S/H IDEATIONS) Seizures: No Thyroid Disease: No - Surgical History Abdominal Surgery: Yes (Sx for twisted intestine in 2003) Appendectomy: No Cardiac Surgery: No Cholecystectomy: Yes (in 2003) Lung Surgery: No Neurologic Surgery: No Orthopedic Surgery: No - Reproductive History PID: No - Immunization History Immunization Up to Date: Yes - Psycho/Social/Smoking Cessation Hx Anxiety: No Suicidal Ideation: No Smoking History: Unknown if ever smoked Have you smoked in the past 12 months: Yes Number of Cigarettes Smoked Daily: 10 Cigars Per Day: 0 Information on smoking cessation initiated: Yes 'Breaking Loose' booklet given: 05/02/16 Hx Alcohol Use: No Drug/Substance Use Hx: No Substance Use Type: Alcohol, Cocaine Hx Substance Use Treatment: Yes ([facility]) <Will Pickard - Last Filed: 05/02/16 02:20> - Past Medical History Allergies/Adverse Reactions: Allergies Allergy/AdvReac Type Severity Reaction Status Date / Time Penicillins Allergy Mild Hives Verified 05/02/16 00:35 Fish Containing Products Allergy Hives Verified 05/02/16 00:35 tomatoes Allergy Hives Uncoded 05/02/16 00:35 Home Medications: Ambulatory Orders Aripiprazole [Abilify -] 15 mg PO DAILY 09/18/11 Benztropine Mesylate [Cogentin -] 2 mg PO BID 09/18/11 Quetiapine Fumarate [Seroquel -] 200 mg PO HS 09/18/11 Lamotrigine [Lamictal -] 25 mg PO BID #60 tablet 12/12/15 Ferrous Sulfate [Feosol] 325 mg PO TIDCM #90 ud 12/15/15 Albuterol Sulfate Inhaler - [Ventolin HFA Inhaler -] 2 puff IH Q4H PRN #1 inhaler 01/24/16 Oxycodone HCl [Roxicodone -] 10 mg PO BID #6 tablet MDD 2 01/25/16 Prednisone [Deltasone -] 15 mg PO ASDIR PRN 02/26/16 Aripiprazole [Abilify -] 10 mg PO DAILY #30 tablet 02/27/16 Quetiapine Fumarate [Seroquel] 100 mg PO HS #30 tablet 02/27/16 Albuterol Sulfate Inhaler - [Ventolin HFA Inhaler -] 2 puff IH Q4H PRN #1 inhaler 02/29/16 Budesonide/Formeterol Fumarate [SYMBICORT 80/4.5mcg -] 2 puff IH BID #1 inhaler 02/29/16 Ferrous Sulfate [Feosol] 325 mg PO TIDCM #90 ud 02/29/16 Ibuprofen 800 mg PO TID #30 tablet 04/25/16 Oxycodone HCl/Acetaminophen [Percocet 5-325 mg Tablet] 1 - 2 tab PO Q6H #20 tablet MDD 4 05/02/16 Review of Systems - Review of Systems Able to Perform ROS?: Yes Comments:: 05/02/16 00:44 CONSTITUTIONAL: Absent: fever, no chills, no fatigue EYES: Absent: visual changes ENT: Absent: ear pain, no sore throat CARDIOVASCULAR: Absent: chest pain, no palpitations RESPIRATORY: Absent: cough, no SOB GI: Absent: abdominal pain, no nausea, no vomiting, no constipation, no diarrhea GENITOURINARY: Absent: dysuria, no frequency, no hematuria MUSKULOSKELETAL: +left knee pain Absent: back pain, no myalgia SKIN: Absent: rash NEURO: Absent: headache <Susana Meraz - Last Filed: 05/02/16 02:05> *Physical Exam - Vital Signs Last Vital Signs Temp Pulse Resp BP Pulse Ox 98.2 F 70 18 109/69 100 05/02/16 00:35 05/02/16 00:35 05/02/16 00:35 05/02/16 00:35 05/02/16 00:35 - Physical Exam Comments: 05/02/16 00:44 GENERAL: Well-appearing, well-nourished. No apparent distress. HEENT: Normocephalic, atraumatic. PERRL, EOM intact. CARDIOVASCULAR: Normal S1, S2. Regular rate and rhythm. PULMONARY: Clear to auscultation bilaterally. ABDOMEN: Soft, non-distended, non-tender. EXTREMITIES: Decreased ROM of the left knee secondary to pain. Diffuse tenderness to the left knee. No gross deformities. SKIN: Warm, dry. No rash NEUROLOGICAL: No focal neurological deficits. <Susana Meraz - Last Filed: 05/02/16 02:05> - Vital Signs Last Vital Signs Temp Pulse Resp BP Pulse Ox 98.2 F 70 18 109/69 100 05/02/16 00:35 05/02/16 00:35 05/02/16 00:35 05/02/16 00:35 05/02/16 00:35 <Will Pickard - Last Filed: 05/02/16 02:20> ED Treatment Course - RADIOLOGY Radiograph Interpretation: 05/02/16 02:05 EXAM: X-ray left knee Reviewed by Imaging litigation secretary: FINDINGS: Mild degenerative changes are noted in the medial compartment. No fracture or joint effusion. IMPRESSION: Mild degenerative changes. <Susana Meraz - Last Filed: 05/02/16 02:05> Medical Decision Making - Medical Decision Making 05/02/16 02:19 Dr. Pickard: The scribe's documentation has been prepared under my direction and personally reviewed by me in its entirery. I confirm that the note above accurately reflects all work, treatment, procedures, and medical decision making performed by me. Pt c/o left pain after twisting it at home. xray is negative for fracture. pt to follow up with her pcp <Will Pickard - Last Filed: 05/02/16 02:20> *DC/Admit/Observation/Transfer - Attestations Scribe Attestion: 05/02/16 00:44 Documentation prepared by Susana Meraz, acting as certified medical technician for Will Pickard MD <Susana Meraz - Last Filed: 05/02/16 02:05> - Discharge Dispostion Admit: No <Will Pickard - Last Filed: 05/02/16 02:20> Diagnosis at time of Disposition: Knee pain, left Qualifiers: Chronicity: acute Qualified Code(s): M25.562 - Pain in left knee - Discharge Dispostion Disposition: HOME Condition at time of disposition: Stable - Prescriptions Prescriptions: Oxycodone HCl/Acetaminophen [Percocet 5-325 mg Tablet] 1 - 2 tab PO Q6H #20 tablet MDD 4 - Referrals Referrals: Hoang Jeronimo MD [Primary Care Provider] - Campbell Sweet MD [Staff Physician] - - Patient Instructions Printed Discharge Instructions: DI for Knee Sprain
[2016-05-02] MEDS ORDERED: OXYCODONE/APAP 5/325MG COMBO TABLET ONE (01:17)
== END 2016-05-02 02:44 | disposition home or self-care (01) ==
LOC: JER 00:32
DX: M25.562 Pain in left knee (principal); X58.XXXA Exposure to other specified factors, initial encounter; Y93.89 Activity, other specified; Y92.003 Bedroom of unspecified non-institutional (private) residence as the place of occurrence of the external cause; F17.210 Nicotine dependence, cigarettes, uncomplicated; F10.920 Alcohol use, unspecified with intoxication, uncomplicated; F14.90 Cocaine use, unspecified, uncomplicated; Z87.442 Personal history of urinary calculi
CPT/HCPCS: 73562-TC-LT; 99281-25

== ENCOUNTER → 2016-05-06 | Emergency (ER) | payer OTHER ==
[~2016-05-06] MED LIST: ALBUTEROL SO4 2.5/IPRATROPIUM 0.5 INH SOL 3 ML VIAL.NEB. NEB ONE; ALBUTEROL SO4 2.5/IPRATROPIUM 0.5 INH SOL 3 ML VIAL.NEB. NEB STA; IBUPROFEN 400 MG TABLET (FP) PO ONE; KETOROLAC TROMETHAMINE 60 MG/2 ML VIAL ONE; OXYCODONE/APAP 5/325MG COMBO TABLET ONE; OXYCODONE/APAP 5/325MG COMBO TABLET PO ONE; dilTIAZem HCL 60 MG TABLET (FP) ONE; predniSONE 20 MG TABLET (UD) ONE; predniSONE 20 MG TABLET (UD) PO ONE; traMADol HCL 50 MG TABLET ONE
[2016-05-06 19:59] VITALS: BP 142/93; PULSE 81; TEMP 97.8; BMI 41.5
--- NOTE | 2016-05-06 20:08 | PDOC ---
Rapid Medical Evaluation Chief Complaint: Shortness of Breath Time Seen by Provider: 05/06/16 20:01 Medical Evaluation: Allergies Allergy/AdvReac Type Severity Reaction Status Date / Time Penicillins Allergy Mild Hives Verified 05/06/16 19:56 Fish Containing Products Allergy Hives Verified 05/06/16 19:56 tomatoes Allergy Hives Uncoded 05/06/16 19:56 Vital Signs Temp Pulse Resp BP Pulse Ox 97.8 F 81 28 H 142/93 100 05/06/16 19:56 05/06/16 19:56 05/06/16 19:56 05/06/16 19:56 05/06/16 19:56 05/06/16 20:04 RME Note: I have performed a brief, in-person evaluation of this patient . This patient presents with CC: left knee pain and sob x this pm, no trauma; hx COPD / asthma Pertinent PE findings are: diffuse wheezing with rhonchi; tender lateral knee, increases with Movement I have ordered: combivent; chest and left knee xray The patient will proceed to ED for further evaluation.
--- NOTE | 2016-05-06 20:29 | PDOC ---
History of Present Illness - General History Source: Patient Exam Limitations: No Limitations - History of Present Illness Initial Comments: 05/06/16 20:56 The patient is a 45 year old female with significant past medical history of schizophrenia, COPD/asthma, and fibroids who presents to the ED with worsening pain and swelling to the left knee. Patient was seen in the ER on 05/02 for left knee pain, where she had a negative x-ray of the left knee. She was treated and discharge. Patient returns today for increasing pain and swelling of the left knee. Denies any new trama. She also has complaints of dry cough and chronic SOB with acute exacerbation today. Denies diaphoresis, lightheadedness, chest pain, jaw pain, shoulder pain, arm pain, nausea, or vomiting. Denies tobacco use. The patient denies fever, chills, abdominal pain, and diarrhea. Allergies: penicillin Social History: Current smoker (half ppd). Etoh use. Cocaine use. Past Surgical History: Sx for twisted intestine in 2003, cholecystectomy PCP: Dr. Hoang Jeronimo <Susana Meraz - Last Filed: 05/06/16 20:56> - General History Source: Patient <Will Pickard - Last Filed: 05/07/16 00:09> - General Chief Complaint: Shortness of Breath Stated Complaint: LEG PAIN Time Seen by Provider: 05/06/16 20:01 Past History <Susana Meraz - Last Filed: 05/06/16 20:56> - Past Medical History Anemia: Yes (NO TREATMENT) Asthma: Yes (ON MDI) Cancer: No Cardiac Disorders: No CVA: No COPD: Yes CHF: No Dementia: No Diabetes: No GI Disorders: No Disorders: No HTN: No Hypercholesterolemia: No Kidney Stones: Yes (2013) Liver Disease: No Psychiatric Problems: Yes Suicide Attempt (Hx): Yes (X2- WITH BENADRYL/?PILLS; DENIES CURRENT S/H IDEATIONS) Seizures: No Thyroid Disease: No - Surgical History Abdominal Surgery: Yes (Sx for twisted intestine in 2003) Appendectomy: No Cardiac Surgery: No Cholecystectomy: Yes (in 2003) Lung Surgery: No Neurologic Surgery: No Orthopedic Surgery: No - Reproductive History PID: No - Immunization History Immunization Up to Date: Yes - Psycho/Social/Smoking Cessation Hx Anxiety: No Suicidal Ideation: No Smoking History: Unknown if ever smoked Have you smoked in the past 12 months: Yes Number of Cigarettes Smoked Daily: 10 Cigars Per Day: 0 Information on smoking cessation initiated: No 'Breaking Loose' booklet given: 05/02/16 Hx Alcohol Use: No Drug/Substance Use Hx: No Substance Use Type: Alcohol, Cocaine Hx Substance Use Treatment: Yes ([facility]) <Will Pickard - Last Filed: 05/07/16 00:09> - Past Medical History Allergies/Adverse Reactions: Allergies Allergy/AdvReac Type Severity Reaction Status Date / Time Penicillins Allergy Mild Hives Verified 05/06/16 19:56 Fish Containing Products Allergy Hives Verified 05/06/16 19:56 tomatoes Allergy Hives Uncoded 05/06/16 19:56 Home Medications: Ambulatory Orders Aripiprazole [Abilify -] 15 mg PO DAILY 09/18/11 Benztropine Mesylate [Cogentin -] 2 mg PO BID 09/18/11 Quetiapine Fumarate [Seroquel -] 200 mg PO HS 09/18/11 Lamotrigine [Lamictal -] 25 mg PO BID #60 tablet 12/12/15 Oxycodone HCl [Roxicodone -] 10 mg PO BID #6 tablet MDD 2 01/25/16 Prednisone [Deltasone -] 15 mg PO ASDIR PRN 02/26/16 Ferrous Sulfate [Feosol] 325 mg PO TIDCM #90 ud 02/29/16 Ibuprofen 800 mg PO TID #30 tablet 04/25/16 Oxycodone HCl/Acetaminophen [Percocet 5-325 mg Tablet] 1 - 2 tab PO Q6H #20 tablet MDD 4 05/02/16 Albuterol Sulfate Inhaler - [Ventolin HFA Inhaler -] 2 puff IH Q4H PRN #1 inhaler 05/07/16 Budesonide/Formeterol Fumarate [SYMBICORT 80/4.5mcg -] 2 puff IH BID #1 inhaler 05/07/16 Oxycodone HCl/Acetaminophen [Percocet 10-325 mg Tablet] 1 each PO QID #20 tablet MDD 4 05/07/16 Review of Systems - Review of Systems Able to Perform ROS?: Yes Comments:: 05/06/16 20:56 CONSTITUTIONAL: Absent: fever, no chills, no fatigue EYES: Absent: visual changes ENT: Absent: ear pain, no sore throat CARDIOVASCULAR: Absent: chest pain, no palpitations RESPIRATORY: +dry cough, SOB GI: Absent: abdominal pain, no nausea, no vomiting, no constipation, no diarrhea GENITOURINARY: Absent: dysuria, no frequency, no hematuria MUSCULOSKELETAL: +left knee pain and swelling Absent: back pain, no myalgia SKIN: Absent: rash NEURO: Absent: headache <Susana Meraz - Last Filed: 05/06/16 20:56> *Physical Exam - Vital Signs Last Vital Signs Temp Pulse Resp BP Pulse Ox 97.8 F 81 28 H 142/93 100 05/06/16 19:56 05/06/16 19:56 05/06/16 19:56 05/06/16 19:56 05/06/16 19:56 - Physical Exam Comments: 05/06/16 20:56 GENERAL: Morbidly obese. Well-appearing, well-nourished. No apparent distress. HEENT: Normocephalic, atraumatic. PERRL, EOM intact. CARDIOVASCULAR: Normal S1, S2. Regular rate and rhythm. No evidence of respiratory distress. Course bilateral wheezing. No conversational dyspnea. No retractions. ABDOMEN: Soft, non-distended, non-tender. EXTREMITIES: Normal ROM in all four extremities. No gross deformities. Diffuse swelling in left knee vs right knee. No joint laxity. SKIN: Warm, dry. No rash NEUROLOGICAL: No focal neurological deficits. <JessenianeerajSusana - Last Filed: 05/06/16 20:56> - Vital Signs Last Vital Signs Temp Pulse Resp BP Pulse Ox 97.8 F 81 28 H 142/93 100 05/06/16 19:56 05/06/16 19:56 05/06/16 19:56 05/06/16 19:56 05/06/16 19:56 <Will Pickard - Last Filed: 05/07/16 00:09> ED Treatment Course - Medications Given in the ED: ED Medications Discontinued Medications Generic Name Dose Route Start Last Admin Trade Name Freq PRN Reason Stop Dose Admin Albuterol/Ipratropium 1 amp 05/06/16 20:02 05/06/16 20:24 Duoneb - NEB 05/06/16 20:03 1 amp ONCE ONE Administration Oxycodone/Acetaminophen 1 combo 05/06/16 20:10 05/06/16 20:24 Percocet 5/325 - PO 05/06/16 20:11 1 combo ONCE ONE Administration Prednisone 60 mg 05/06/16 20:29 05/06/16 20:48 Deltasone - PO 05/06/16 20:30 60 mg ONCE ONE Administration <Susana Meraz - Last Filed: 05/06/16 20:56> - Medications Given in the ED: ED Medications Discontinued Medications Generic Name Dose Route Start Last Admin Trade Name Yusuf PRN Reason Stop Dose Admin Albuterol/Ipratropium 1 amp 05/06/16 20:02 05/06/16 20:24 Duoneb - NEB 05/06/16 20:03 1 amp ONCE ONE Administration Oxycodone/Acetaminophen 1 combo 05/06/16 20:10 05/06/16 20:24 Percocet 5/325 - PO 05/06/16 20:11 1 combo ONCE ONE Administration <Will Pickard - Last Filed: 05/07/16 00:09> Medical Decision Making - Medical Decision Making 05/07/16 00:07 Dr. Pickard: The scribe's documentation has been prepared under my direction and personally reviewed by me in its entirery. I confirm that the note above accurately reflects all work, treatment, procedures, and medical decision making performed by me. Left leg duplex is negative for DVT. patient will be discharged. advised to follow-up with orthopedics <Will Pickard - Last Filed: 05/07/16 00:09> *DC/Admit/Observation/Transfer - Attestations Scribe Attestion: 05/06/16 20:56 Documentation prepared by Susana Meraz, acting as medical communication specialist for Will Pickard MD <Susana Meraz - Last Filed: 05/06/16 20:56> - Discharge Dispostion Admit: No <Will Pickard - Last Filed: 05/07/16 00:09> Diagnosis at time of Disposition: Knee pain, left Qualifiers: Chronicity: chronic Qualified Code(s): M25.562 - Pain in left knee; G89.29 - Other chronic pain - Discharge Dispostion Disposition: HOME Condition at time of disposition: Stable - Prescriptions Prescriptions: Oxycodone HCl/Acetaminophen [Percocet 10-325 mg Tablet] 1 each PO QID #20 tablet MDD 4 Budesonide/Formeterol Fumarate [SYMBICORT 80/4.5mcg -] 2 puff IH BID #1 inhaler Albuterol Sulfate Inhaler - [Ventolin HFA Inhaler -] 2 puff IH Q4H PRN #1 inhaler PRN Reason: Asthma - Referrals Referrals: STAFF,NOT ON [Primary Care Provider] - Ganesh Interiano MD [Staff Physician] - - Patient Instructions Printed Discharge Instructions: DI for Knee Pain Additional Instructions: please follow-up with orthopedics. apply ice to knee.
== END | disposition home or self-care (01) ==
LOC: JER 19:51
PROC: 3E0F7GC Introduction of Other Therapeutic Substance into Respiratory Tract, Via Natural or Artificial Opening (ICD-10-PCS; principal; 2016-05-06)
PROC: 3E0F7GC Introduction of Other Therapeutic Substance into Respiratory Tract, Via Natural or Artificial Opening (ICD-10-PCS; 2016-05-06)
DX: M25.562 Pain in left knee (principal); G89.29 Other chronic pain; J45.909 Unspecified asthma, uncomplicated; J44.9 Chronic obstructive pulmonary disease, unspecified; D64.9 Anemia, unspecified
CPT/HCPCS: 93971-TC; 94640; 99282-25

== ENCOUNTER → 2016-05-10 | Emergency (ER) | payer OTHER ==
[~2016-05-10] MED LIST changes: -ALBUTEROL SO4 2.5/IPRATROPIUM 0.5 INH SOL 3 ML VIAL.NEB. NEB ONE; -ALBUTEROL SO4 2.5/IPRATROPIUM 0.5 INH SOL 3 ML VIAL.NEB. NEB STA; -IBUPROFEN 400 MG TABLET (FP) PO ONE; +KETOROLAC TROMETHAMINE 60 MG/2 ML VIAL IM ONE; -OXYCODONE/APAP 5/325MG COMBO TABLET ONE; -OXYCODONE/APAP 5/325MG COMBO TABLET PO ONE; -dilTIAZem HCL 60 MG TABLET (FP) ONE; -predniSONE 20 MG TABLET (UD) ONE; -predniSONE 20 MG TABLET (UD) PO ONE; -traMADol HCL 50 MG TABLET ONE
--- NOTE | 2016-05-10 01:03 | PDOC ---
[id number] 45 year old female with significant medical hx of COPD, asthma and schizophrenia who is presenting to the ED complaining of pain to her abdomen secondary to ovarian abscess. The patient complains of pain to her left abdomen. Patient received an Abdomen/Pelvis CT in the ED on 04/25/16 which demonstrated a left ovarian cyst. She states that she was sent home on pain medication but reports that her symptoms have persisted. Patient denies fever, chills, nausea, vomiting, diarrhea. Allergies: penicillin Social History: Current smoker (half ppd). Etoh use. Cocaine use. Past Surgical History: Sx for twisted intestine in 2003, cholecystectomy PCP: Dr. Hoang Jeronimo <Reyna Keith - Last Filed: 05/10/16 01:14> <Derrick Herron - Last Filed: 06/23/16 09:51> - General Chief Complaint: Pain Stated Complaint: ABDOMINAL PAIN Time Seen by Provider: 05/10/16 00:50 Past History <Reyna Keith - Last Filed: 05/10/16 01:14> - Past Medical History Anemia: Yes (NO TREATMENT) Asthma: Yes (ON MDI) Cancer: No Cardiac Disorders: No CVA: No COPD: Yes CHF: No Dementia: No Diabetes: No GI Disorders: No Disorders: No HTN: No Hypercholesterolemia: No Kidney Stones: Yes (2013) Liver Disease: No Psychiatric Problems: Yes Suicide Attempt (Hx): Yes (X2- WITH BENADRYL/?PILLS; DENIES CURRENT S/H IDEATIONS) Seizures: No Thyroid Disease: No - Surgical History Abdominal Surgery: Yes (Sx for twisted intestine in 2003) Appendectomy: No Cardiac Surgery: No Cholecystectomy: Yes (in 2003) Lung Surgery: No Neurologic Surgery: No Orthopedic Surgery: No - Reproductive History PID: No - Immunization History Immunization Up to Date: Yes - Psycho/Social/Smoking Cessation Hx Anxiety: No Suicidal Ideation: No Smoking History: Unknown if ever smoked Have you smoked in the past 12 months: Yes Number of Cigarettes Smoked Daily: 10 Cigars Per Day: 0 'Breaking Loose' booklet given: 05/02/16 Hx Alcohol Use: No Drug/Substance Use Hx: No Substance Use Type: Alcohol, Cocaine Hx Substance Use Treatment: Yes ([facility]) <Derrick Herron - Last Filed: 06/23/16 09:51> - Past Medical History Allergies/Adverse Reactions: Allergies Allergy/AdvReac Type Severity Reaction Status Date / Time Penicillins Allergy Mild Hives Verified 05/10/16 00:43 Fish Containing Products Allergy Hives Verified 05/10/16 00:43 tomatoes Allergy Hives Uncoded 05/10/16 00:43 Home Medications: Ambulatory Orders Aripiprazole [Abilify -] 15 mg PO DAILY 09/18/11 Benztropine Mesylate [Cogentin -] 2 mg PO BID 09/18/11 Quetiapine Fumarate [Seroquel -] 200 mg PO HS 09/18/11 Lamotrigine [Lamictal -] 25 mg PO BID #60 tablet 12/12/15 Prednisone [Deltasone -] 15 mg PO ASDIR PRN 02/26/16 Ferrous Sulfate [Feosol] 325 mg PO TIDCM #90 ud 02/29/16 Ibuprofen 800 mg PO TID #30 tablet 04/25/16 Albuterol Sulfate Inhaler - [Ventolin HFA Inhaler -] 2 puff IH Q4H PRN #1 inhaler 05/07/16 Budesonide/Formeterol Fumarate [SYMBICORT 80/4.5mcg -] 2 puff IH BID #1 inhaler 05/07/16 Oxycodone HCl/Acetaminophen [Percocet 10-325 mg Tablet] 1 each PO QID #20 tablet MDD 4 05/07/16 Review of Systems - Review of Systems Comments:: 05/10/16 01:16 GENERAL/CONSTITUTIONAL: No fever or chills. No weakness. HEAD, EYES, EARS, NOSE AND THROAT: No change in vision. No ear pain or discharge. No sore throat. CARDIOVASCULAR: No chest pain or shortness of breath. RESPIRATORY: No cough, wheezing, or hemoptysis. GASTROINTESTINAL: Left abdominal pain. No nausea, vomiting, diarrhea or constipation. GENITOURINARY: No dysuria, frequency, or change in urination. MUSCULOSKELETAL: No joint or muscle swelling or pain. No neck or back pain. SKIN: No rash NEUROLOGIC: No headache, vertigo, loss of consciousness, or change in strength/ sensation. <Reyna Keith - Last Filed: 05/10/16 01:14> *Physical Exam - Vital Signs Last Vital Signs Temp Pulse Resp BP Pulse Ox 97.9 F 75 14 132/74 98 05/10/16 00:43 05/10/16 00:43 05/10/16 00:43 05/10/16 00:43 05/10/16 00:43 - Physical Exam Comments: 05/10/16 01:17 GENERAL: Awake, alert, and fully oriented, in no acute distress HEAD: No signs of trauma EYES: PERRLA, EOMI, sclera anicteric, conjunctiva clear ENT: Auricles normal inspection, hearing grossly normal, nares patent, oropharynx clear without exudates. Moist mucosa NECK: Normal ROM, supple, no lymphadenopathy, JVD, or masses LUNGS: Breath sounds equal, clear to auscultation bilaterally. No wheezes, and no crackles HEART: Regular rate and rhythm, normal S1 and S2, no murmurs, rubs or gallops ABDOMEN: Soft, nontender, normoactive bowel sounds. No guarding, no rebound. No masses EXTREMITIES: Normal range of motion, no edema. No clubbing or cyanosis. No cords, erythema, or tenderness NEUROLOGICAL: Cranial nerves II through XII grossly intact. Normal speech, normal gait SKIN: Warm, Dry, normal turgor, no rashes or lesions noted. ENDOCRINE: No increased thirst. No abnormal weight change. HEMATOLOGIC/LYMPHATIC: No anemia, easy bleeding, or history of blood clots. ALLERGIC/IMMUNOLOGIC: No hives or skin allergy. <Reyna Keith - Last Filed: 05/10/16 01:14> - Vital Signs Last Vital Signs Temp Pulse Resp BP Pulse Ox 97.9 F 75 14 132/74 98 05/10/16 00:43 05/10/16 00:43 05/10/16 00:43 05/10/16 00:43 05/10/16 00:43 <Derrick Herron - Last Filed: 06/23/16 09:51> *DC/Admit/Observation/Transfer - Attestations Scribe Attestion: 05/10/16 01:17 Documentation prepared by Reyna Keith, acting as senior medical director for Derrick Herron MD. <Reyna Keith - Last Filed: 05/10/16 01:14> - Attestations Physician Attestion: 05/10/16 01:03 Dr. Derrick Lawrence, attest that this document has been prepared under my direction and personally reviewed by me in its entirety. I further attest, that it accurately reflects all work, treatment, procedures and medical decision -making performed by me. <Derrick Herron - Last Filed: 06/23/16 09:51> Diagnosis at time of Disposition: Left ovarian cyst - Discharge Dispostion Disposition: HOME Condition at time of disposition: Stable - Referrals Referrals: Hoang Jeronimo MD [Primary Care Provider] - Abel Lucio MD [Staff Physician] - - Patient Instructions Printed Discharge Instructions: DI for Ovarian Cyst
[2016-05-10 01:14] VITALS: BP 132/74; PULSE 75; TEMP 97.9; BMI 41.5
[2016-05-10 01:59] LABS: URINE APPEARANCE CLEAR; URINE BILIRUBIN NEGATIVE (NEGATIVE); URINE BLOOD NEGATIVE (NEGATIVE); URINE COLOR LTYELLOW; URINE GLUCOSE (UA) NEGATIVE (NEGATIVE); URINE KETONE NEGATIVE (NEGATIVE); URINE LEUK ESTERASE NEGATIVE (NEGATIVE); URINE NITRITE NEGATIVE (NEGATIVE); URINE PROTEIN NEGATIVE (NEGATIVE); URINE UROBILINOGEN 4.0 E.U/dl E.U./dl (0.2-1.0)
--- NOTE | 2016-05-10 02:22 | PDOC ---
*Physical Exam - Vital Signs Last Vital Signs Temp Pulse Resp BP Pulse Ox 97.9 F 75 14 132/74 98 05/10/16 00:43 05/10/16 00:43 05/10/16 00:43 05/10/16 00:43 05/10/16 00:43 ED Treatment Course - ADDITIONAL ORDERS Additional order review: Laboratory Results 05/10/16 01:45 Urine Color Ltyellow Urine Appearance Clear Urine pH 7.0 Ur Specific [place] 1.026 Urine Protein Negative Urine Glucose (UA) Negative Urine Ketones Negative Urine Blood Negative Urine Nitrite Negative Urine Bilirubin Negative Urine Urobilinogen 4.0 e.u/dl H Ur Leukocyte Esterase Negative *DC/Admit/Observation/Transfer Diagnosis at time of Disposition: Left ovarian cyst - Discharge Dispostion Disposition: HOME Condition at time of disposition: Stable Admit: No - Referrals Referrals: Hoang Jeronimo MD [Primary Care Provider] - Abel Lucio MD [Staff Physician] - - Patient Instructions Printed Discharge Instructions: DI for Ovarian Cyst - Post Discharge Activity
== END | disposition home or self-care (01) ==
LOC: JER 00:26
PROC: 3E0233Z Introduction of Anti-inflammatory into Muscle, Percutaneous Approach (ICD-10-PCS; principal; 2016-05-10)
DX: N83.202 Unspecified ovarian cyst, left side (principal); J44.9 Chronic obstructive pulmonary disease, unspecified; Z87.442 Personal history of urinary calculi; J45.909 Unspecified asthma, uncomplicated
CPT/HCPCS: 76830-TC; 81003; 87086; 96372; 99281-25

== ENCOUNTER → 2016-07-03 | Emergency (ER) | payer OTHER ==
[~2016-07-03] MED LIST changes: -KETOROLAC TROMETHAMINE 60 MG/2 ML VIAL IM ONE; -KETOROLAC TROMETHAMINE 60 MG/2 ML VIAL ONE; +traMADol HCL 50 MG TABLET ONE; +traMADol HCL 50 MG TABLET PO ONE
[2016-07-03 17:32] VITALS: PULSE 84; BMI 41.5
--- NOTE | 2016-07-03 18:59 | PDOC ---
History of Present Illness - General History Source: Patient, Old Records Exam Limitations: No Limitations <Pooja Reyes - Last Filed: 07/03/16 19:15> - History of Present Illness Initial Comments: 07/03/16 19:23 Patient is a 46 year old female with significant medical hx of schizophrenia and COPD who is presenting to the ED with one month of bilateral knee pain. The patient reports her knee pain has been progressive over the past month, with the left knee worse than the right. She denies any aggravating or alleviating factors. The patient can bare weight on her knees as she was witnessed walking to the bathroom in the ED. The patient states that last night she took percocet from her sister which helped her pain and is currently requesting percocet in the ED. The patient also reports she saw a doctor in [place], but recently had to change her health plan, and has been unable to find a new doctor at this time. Denies any recent trauma or fall. <Reyna Keith - Last Filed: 07/03/16 19:29> - General Chief Complaint: Chronic pain Stated Complaint: PAIN Time Seen by Provider: 07/03/16 18:58 Past History - Past Medical History Anemia: Yes (NO TREATMENT) Asthma: Yes (ON MDI) Cancer: No Cardiac Disorders: No CVA: No COPD: Yes CHF: No Dementia: No Diabetes: No GI Disorders: No Disorders: No HTN: No Hypercholesterolemia: No Kidney Stones: Yes (2013) Liver Disease: No Psychiatric Problems: Yes Suicide Attempt (Hx): Yes (X2- WITH BENADRYL/?PILLS; DENIES CURRENT S/H IDEATIONS) Seizures: No Thyroid Disease: No - Surgical History Abdominal Surgery: Yes (Sx for twisted intestine in 2003) Appendectomy: No Cardiac Surgery: No Cholecystectomy: Yes (in 2003) Lung Surgery: No Neurologic Surgery: No Orthopedic Surgery: No - Reproductive History PID: No - Immunization History Immunization Up to Date: Yes - Psycho/Social/Smoking Cessation Hx Anxiety: No Suicidal Ideation: No Smoking History: Unknown if ever smoked Have you smoked in the past 12 months: Yes Number of Cigarettes Smoked Daily: 10 Cigars Per Day: 0 Information on smoking cessation initiated: No 'Breaking Loose' booklet given: 05/02/16 Hx Alcohol Use: No Drug/Substance Use Hx: No Substance Use Type: Alcohol, Cocaine Hx Substance Use Treatment: Yes ([facility]) <Pooja Reyes - Last Filed: 07/03/16 19:15> <Reyna Keith - Last Filed: 07/03/16 19:29> - Past Medical History Allergies/Adverse Reactions: Allergies Allergy/AdvReac Type Severity Reaction Status Date / Time Penicillins Allergy Mild Hives Verified 07/03/16 17:31 Fish Containing Products Allergy Hives Verified 07/03/16 17:31 tomatoes Allergy Hives Uncoded 07/03/16 17:31 Home Medications: Ambulatory Orders Aripiprazole [Abilify -] 15 mg PO DAILY 09/18/11 Benztropine Mesylate [Cogentin -] 2 mg PO BID 09/18/11 Quetiapine Fumarate [Seroquel -] 200 mg PO HS 09/18/11 Lamotrigine [Lamictal -] 25 mg PO BID #60 tablet 12/12/15 Prednisone [Deltasone -] 15 mg PO ASDIR PRN 02/26/16 Ferrous Sulfate [Feosol] 325 mg PO TIDCM #90 ud 02/29/16 Ibuprofen 800 mg PO TID #30 tablet 04/25/16 Albuterol Sulfate Inhaler - [Ventolin HFA Inhaler -] 2 puff IH Q4H PRN #1 inhaler 05/07/16 Budesonide/Formeterol Fumarate [SYMBICORT 80/4.5mcg -] 2 puff IH BID #1 inhaler 05/07/16 Oxycodone HCl/Acetaminophen [Percocet 10-325 mg Tablet] 1 each PO QID #20 tablet MDD 4 05/07/16 Tramadol HCl/Acetaminophen [Tramadol-Acetaminophn 37.5-325] 1 each PO BID PRN # 10 tablet MDD 2 07/03/16 Review of Systems - Review of Systems Comments:: 07/03/16 19:26 GENERAL/CONSTITUTIONAL: No fever or chills. No weakness. HEAD, EYES, EARS, NOSE AND THROAT: No change in vision. No ear pain or discharge. No sore throat. CARDIOVASCULAR: No chest pain or shortness of breath. RESPIRATORY: No cough, wheezing, or hemoptysis. GASTROINTESTINAL: No nausea, vomiting, diarrhea or constipation. GENITOURINARY: No dysuria, frequency, or change in urination. MUSCULOSKELETAL: Bilateral knee pain. No neck or back pain. ENDOCRINE: No increased thirst. No abnormal weight change. SKIN: No rash NEUROLOGIC: No headache, vertigo, loss of consciousness, or change in strength/ sensation. <Reyna Keith - Last Filed: 07/03/16 19:29> *Physical Exam - Vital Signs Last Vital Signs Temp Pulse Resp BP Pulse Ox 98.6 F 84 18 120/73 100 07/03/16 17:26 07/03/16 17:26 07/03/16 17:26 07/03/16 17:26 07/03/16 17:26 <Pooja Reyes - Last Filed: 07/03/16 19:15> - Vital Signs Last Vital Signs Temp Pulse Resp BP Pulse Ox 98.6 F 84 18 120/73 100 07/03/16 17:26 07/03/16 17:26 07/03/16 17:26 07/03/16 17:26 07/03/16 17:26 - Physical Exam Comments: 07/03/16 19:26 GENERAL: Awake, alert, and fully oriented, in no acute distress HEAD: No signs of trauma EYES: PERRLA, EOMI, sclera anicteric, conjunctiva clear ENT: Auricles normal inspection, hearing grossly normal, nares patent, oropharynx clear without exudates. Moist mucosa NECK: Normal ROM, supple, no lymphadenopathy, JVD, or masses LUNGS: Scant wheezes bilaterally. No crackles HEART: Regular rate and rhythm, normal S1 and S2, no murmurs, rubs or gallops ABDOMEN: Soft, nontender, normoactive bowel sounds. No guarding, no rebound. No masses EXTREMITIES: Left patellar region tenderness, patient can bear weight. Normal range of motion, no edema. No clubbing or cyanosis. No cords or erythema NEUROLOGICAL: Cranial nerves II through XII grossly intact. Normal speech, normal gait SKIN: Warm, Dry, normal turgor, no rashes or lesions noted. HEMATOLOGIC/LYMPHATIC: No anemia, easy bleeding, or history of blood clots. ALLERGIC/IMMUNOLOGIC: No hives or skin allergy. <Reyna Keith - Last Filed: 07/03/16 19:29> Medical Decision Making - Medical Decision Making 07/03/16 19:17 46-year-old female with history of COPD and schizophrenia and chronic bilateral knee pain presents to the emergency Department with complaints of worsening bilateral knee pain that was relieved when she took her sister's Percocet yesterday. There has been no traumatic injury. No fevers or chills, rashes. Likely diagnosis is chronic arthritic changes to the bilateral knees. The patient refuses to take NSAIDs as she states that it does not work she requested Percocet which I have instructed her I will not prescribe for her. I have prescribed tramadol 50 mg for her in the ED. I will prescribe 10 tablets of tramadol as an outpatient. <Pooja Reyes - Last Filed: 07/03/16 19:15> *DC/Admit/Observation/Transfer - Discharge Dispostion Admit: No - Attestations Physician Attestion: 07/03/16 19:20 I, Dr. Pooja Reyes, attest that the scribes documentation that appears above has been prepared under my direction and personally reviewed by me in its entirety. I confirmed that the note above accurately reflects all work, treatment, procedures, and medical decision-making performed by me. <Pooja Reyes - Last Filed: 07/03/16 19:15> - Attestations Scribe Attestion: 07/03/16 19:29 Documentation prepared by Reyna Keith, acting as medical dermatologist for Pooja Reyes MD. <Reyna Keith - Last Filed: 07/03/16 19:29> Diagnosis at time of Disposition: Bilateral knee pain - Prescriptions Prescriptions: Tramadol HCl/Acetaminophen [Tramadol-Acetaminophn 37.5-325] 1 each PO BID PRN # 10 tablet MDD 2 PRN Reason: Pain - Patient Instructions Printed Discharge Instructions: DI for Osteoarthritis Additional Instructions: Follow-up with your primary care physician within one month. Return to the Ed if symptoms persist, worsen or new symptoms arise.
[2016-07-03 19:38] VITALS: BP 125/70; TEMP 97.7
== END | disposition home or self-care (01) ==
LOC: JER 17:20
DX: M25.562 Pain in left knee (principal); M25.561 Pain in right knee; G89.29 Other chronic pain; J44.9 Chronic obstructive pulmonary disease, unspecified; J45.909 Unspecified asthma, uncomplicated; F20.89 Other schizophrenia
CPT/HCPCS: 99282-25

== ENCOUNTER 2016-07-08 09:22 | Observation (INO) | payer OTHER ==
[2016-07-08 09:39] VITALS: BMI 37.4
--- NOTE | 2016-07-08 09:48 | PDOC ---
History of Present Illness - General Chief Complaint: Palpitations Stated Complaint: TACHYCARDIA Past History - Past Medical History Allergies/Adverse Reactions: Allergies Allergy/AdvReac Type Severity Reaction Status Date / Time Penicillins Allergy Mild Hives Verified 07/08/16 09:31 Fish Containing Products Allergy Hives Verified 07/08/16 09:31 tomatoes Allergy Hives Uncoded 07/08/16 09:31 Home Medications: Ambulatory Orders Aripiprazole [Abilify -] 15 mg PO BID 09/18/11 Benztropine Mesylate [Cogentin -] 2 mg PO BID 09/18/11 Quetiapine Fumarate [Seroquel -] 200 mg PO HS 09/18/11 Lamotrigine [Lamictal -] 25 mg PO BID #60 tablet 12/12/15 Albuterol Sulfate Inhaler - [Ventolin HFA Inhaler -] 2 puff IH Q4H PRN #1 inhaler 05/07/16 Budesonide/Formeterol Fumarate [SYMBICORT 80/4.5mcg -] 2 puff IH BID #1 inhaler 05/07/16 Oxycodone HCl/Acetaminophen [Percocet 10-325 mg Tablet] 1 each PO QID #20 tablet MDD 4 05/07/16 Anemia: Yes (NO TREATMENT) Asthma: Yes (ON MDI) Cancer: No Cardiac Disorders: No CVA: No COPD: Yes CHF: No Dementia: No Diabetes: No GI Disorders: No Disorders: No HTN: No Hypercholesterolemia: No Kidney Stones: Yes (2014) Liver Disease: No Psychiatric Problems: Yes (schiz) Suicide Attempt (Hx): Yes (X2- WITH BENADRYL/?PILLS; DENIES CURRENT S/H IDEATIONS) Seizures: No Thyroid Disease: No - Surgical History Abdominal Surgery: Yes (Sx for twisted intestine in 2003) Appendectomy: No Cardiac Surgery: No Cholecystectomy: Yes (in 2003) Lung Surgery: No Neurologic Surgery: No Orthopedic Surgery: No - Reproductive History PID: No - Immunization History Immunization Up to Date: Yes - Psycho/Social/Smoking Cessation Hx Anxiety: No Suicidal Ideation: No Smoking History: Current every day smoker Have you smoked in the past 12 months: Yes Number of Cigarettes Smoked Daily: 3 Cigars Per Day: 0 Information on smoking cessation initiated: Yes 'Breaking Loose' booklet given: 07/08/16 Hx Alcohol Use: No Drug/Substance Use Hx: Yes (coccaine,heroin,marjuana) Substance Use Type: Alcohol, Cocaine, Marijuana Hx Substance Use Treatment: Yes ([facility]) Cardiac Specific PMH - Complaint Specific PMHX Pacemaker: No *Physical Exam - Vital Signs Last Vital Signs Temp Pulse Resp BP Pulse Ox 98.2 F 90 18 138/85 100 07/08/16 09:32 07/08/16 09:32 07/08/16 09:32 07/08/16 09:32 07/08/16 09:32
[2016-07-08] MEDS ORDERED: predniSONE 20 MG TABLET (UD) PO ONE (10:01)
[2016-07-08] MEDS ORDERED: SODIUM CHLORIDE 1,000 ML IV STA (10:01)
[2016-07-08] MEDS ORDERED: KETOROLAC TROMETHAMINE 30 MG/1 ML VIAL IVPUSH ONE (10:01)
[2016-07-08] MEDS ORDERED: IPRATROPIUM BR 0.02% 0.5 MG/2.5 ML VIAL.NEB. NEB ONE (10:01)
[2016-07-08] MEDS ORDERED: ALBUTEROL SO4 0.083% IH SOL 2.5 MG/3 ML VIAL.NEB. NEB ONE ×3 (10:01→11:36)
[2016-07-08] MEDS ORDERED: traMADol HCL 50 MG TABLET PO ONE (10:03)
--- NOTE | 2016-07-08 10:07 | PDOC ---
History of Present Illness - General History Source: Patient, Old Records Exam Limitations: No Limitations - History of Present Illness Initial Comments: 07/08/16 10:26 The patient is a 46 year old female brought via EMS, with a significant past medical history of COPD, arthritis, schizophrenia, who presents to the emergency department with chest pain and palpitations onset this morning. She states that she had 1 cup of coffee this morning and the symptoms started immediately after. She describes her chest pain as sharp, ranging from mild to moderate, without radiation or modifying factors. She notes that she has had coffee in the past without these symptoms occurring. She states that yesterday she had an asthma attack and was seen at. [facility], where she was given nebulizers and steroids. She notes that she feels as if shes still wheezing. The patient denies shortness of breath, headache and dizziness. Denies fever, chills, nausea, vomit, diarrhea and constipation. Allergies: Penicillin, tomatoes, fish containing products Past surgical history: Cholecystectomy, Sx for twisted intestine in 2003 Social history: Cigarette use (3 daily). Alcohol, cocaine, heroin and marijuana use. (Previous detox admissions) <Will Jin - Last Filed: 07/08/16 10:35> - General History Source: Patient Exam Limitations: No Limitations <Russ Garcia - Last Filed: 07/08/16 11:57> - General Chief Complaint: Palpitations Stated Complaint: TACHYCARDIA Time Seen by Provider: 07/08/16 09:51 Past History <Will Jin - Last Filed: 07/08/16 10:35> - Past Medical History Anemia: Yes (NO TREATMENT) Asthma: Yes (ON MDI) Cancer: No Cardiac Disorders: No CVA: No COPD: Yes CHF: No Dementia: No Diabetes: No GI Disorders: No Disorders: No HTN: No Hypercholesterolemia: No Kidney Stones: Yes (2013) Liver Disease: No Psychiatric Problems: Yes (schiz) Suicide Attempt (Hx): Yes (X2- WITH BENADRYL/?PILLS; DENIES CURRENT S/H IDEATIONS) Seizures: No Thyroid Disease: No - Surgical History Abdominal Surgery: Yes (Sx for twisted intestine in 2003) Appendectomy: No Cardiac Surgery: No Cholecystectomy: Yes (in 2003) Lung Surgery: No Neurologic Surgery: No Orthopedic Surgery: No - Reproductive History PID: No - Immunization History Immunization Up to Date: Yes - Psycho/Social/Smoking Cessation Hx Anxiety: No Suicidal Ideation: No Smoking History: Current every day smoker Have you smoked in the past 12 months: Yes Number of Cigarettes Smoked Daily: 3 Cigars Per Day: 0 Information on smoking cessation initiated: Yes 'Breaking Loose' booklet given: 07/08/16 Hx Alcohol Use: No Drug/Substance Use Hx: Yes (coccaine,heroin,marjuana) Substance Use Type: Alcohol, Cocaine, Marijuana Hx Substance Use Treatment: Yes ([facility]) <Russ Garcia - Last Filed: 07/08/16 11:57> - Past Medical History Allergies/Adverse Reactions: Allergies Allergy/AdvReac Type Severity Reaction Status Date / Time Penicillins Allergy Mild Hives Verified 07/08/16 09:31 Fish Containing Products Allergy Hives Verified 07/08/16 09:31 tomatoes Allergy Hives Uncoded 07/08/16 09:31 Home Medications: Ambulatory Orders Aripiprazole [Abilify -] 15 mg PO BID 09/18/11 Benztropine Mesylate [Cogentin -] 2 mg PO BID 09/18/11 Quetiapine Fumarate [Seroquel -] 200 mg PO HS 09/18/11 Lamotrigine [Lamictal -] 25 mg PO BID #60 tablet 12/12/15 Albuterol Sulfate Inhaler - [Ventolin HFA Inhaler -] 2 puff IH Q4H PRN #1 inhaler 05/07/16 Budesonide/Formeterol Fumarate [SYMBICORT 80/4.5mcg -] 2 puff IH BID #1 inhaler 05/07/16 Oxycodone HCl/Acetaminophen [Percocet 10-325 mg Tablet] 1 each PO QID #20 tablet MDD 4 05/07/16 Review of Systems - Review of Systems Able to Perform ROS?: Yes Comments:: 07/08/16 10:27 GENERAL/CONSTITUTIONAL: No fever or chills. No weakness. HEAD, EYES, EARS, NOSE AND THROAT: No change in vision. No ear pain or discharge. No sore throat. CARDIOVASCULAR: (+) Chest pain, palpitations. No shortness of breath RESPIRATORY: (+) Wheezing. No cough, or hemoptysis. GASTROINTESTINAL: No nausea, vomiting, diarrhea or constipation. GENITOURINARY: No dysuria, frequency, or change in urination. MUSCULOSKELETAL: No joint or muscle swelling or pain. No neck or back pain. SKIN: No rash NEUROLOGIC: No headache, vertigo, loss of consciousness, or change in strength/ sensation. ENDOCRINE: No increased thirst. No abnormal weight change HEMATOLOGIC/LYMPHATIC: No anemia, easy bleeding, or history of blood clots. ALLERGIC/IMMUNOLOGIC: No hives or skin allergy. <Will Jin - Last Filed: 07/08/16 10:35> *Physical Exam - Vital Signs Last Vital Signs Temp Pulse Resp BP Pulse Ox 98.2 F 90 18 138/85 100 07/08/16 09:32 07/08/16 09:32 07/08/16 09:32 07/08/16 09:32 07/08/16 09:51 - Physical Exam Comments: 07/08/16 10:27 GENERAL: Awake, alert, and fully oriented, in no acute distress HEAD: No signs of trauma, normocephalic, atraumatic EYES: PERRLA, EOMI, sclera anicteric, conjunctiva clear ENT: Auricles normal inspection, hearing grossly normal, nares patent, oropharynx clear without exudates. Moist mucosa NECK: Normal ROM, supple, no lymphadenopathy, JVD, or masses LUNGS: (+) Wheezing. No distress, speaks full sentences, HEART: Regular rate and rhythm, normal S1 and S2, no murmurs, rubs or gallops, peripheral pulses normal and equal bilaterally. ABDOMEN: Soft, nontender, normoactive bowel sounds. No guarding, no rebound. No masses EXTREMITIES: Normal inspection, Normal range of motion, no edema. No clubbing or cyanosis. NEUROLOGICAL: Cranial nerves II through XII grossly intact. Normal speech, normal gait, no focal sensorimotor deficits SKIN: Warm, Dry, normal turgor, no rashes or lesions noted. <Will Jin - Last Filed: 07/08/16 10:35> - Vital Signs Last Vital Signs Temp Pulse Resp BP Pulse Ox 98.2 F 90 18 138/85 100 07/08/16 09:32 07/08/16 09:32 07/08/16 09:32 07/08/16 09:32 07/08/16 09:51 <Russ Garcia - Last Filed: 07/08/16 11:57> Heart Score/ECG Review #1 ECG reviewed & interpreted by me at: 09:35 07/08/16 10:04 NSR 93, Q wave V1, no std/shayan, normal axis normal intervals, QTC 494 msec <Russ Garcia - Last Filed: 07/08/16 11:57> ED Treatment Course - LABORATORY CBC & Chemistry Diagram: 07/08/16 09:51 07/08/16 09:51 - ADDITIONAL ORDERS Additional order review: 07/08/16 09:51 RBC 4.59 MCV 59.4 L MCHC 31.6 L RDW 21.0 H MPV 8.4 Neutrophils % 82.0 D Lymphocytes % 9.6 D Monocytes % 8.1 Eosinophils % 0.0 D Basophils % 0.3 - RADIOLOGY Radiograph Interpretation: 07/08/16 10:35 Chest X-Ray Reviewed by: Dr. Miles Hurtado Impression: Large heart, normal aorta, prominent hilar markings and questionable atelectasis at the left base. - Medications Given in the ED: ED Medications Discontinued Medications Generic Name Dose Route Start Last Admin Trade Name Freq PRN Reason Stop Dose Admin Albuterol Sulfate 1 amp 07/08/16 10:01 07/08/16 10:14 Ventolin 0.083% Nebulizer Soln - NEB 07/08/16 10:02 1 amp ONCE ONE Administration Ipratropium [place] 1 amp 07/08/16 10:01 07/08/16 10:14 Atrovent 0.02% Nebulizer - NEB 07/08/16 10:02 1 amp ONCE ONE Administration Ketorolac Tromethamine 30 mg 07/08/16 10:01 07/08/16 10:16 Toradol Injection - IVPUSH 07/08/16 10:02 Not Given ONCE ONE Methylprednisolone Sodium Succinate 125 mg 07/08/16 10:16 07/08/16 10:16 Solu-Medrol - IVPB 07/08/16 10:17 125 mg NOW ONE Administration Prednisone 60 mg 07/08/16 10:01 07/08/16 10:16 Deltasone - PO 07/08/16 10:02 Not Given ONCE ONE Tramadol HCl 50 mg 07/08/16 10:03 07/08/16 10:14 Ultram - PO 07/08/16 10:04 50 mg ONCE ONE Administration <Will Jin - Last Filed: 07/08/16 10:35> - LABORATORY CBC & Chemistry Diagram: 07/08/16 09:51 07/08/16 09:51 - RADIOLOGY Radiology Studies Ordered: Category Date Time Status CHEST X-RAY PORTABLE* [RAD] Stat Radiology 07/08/16 09:45 Ordered <Russ Garcia - Last Filed: 07/08/16 11:57> Medical Decision Making - Medical Decision Making 07/08/16 10:04 A portion of this note was documented by scribe services under my direction. I have reviewed the details of the note, within reason, and agree with the documentation with the following case summary and management plan written by me. Patient treated in the ED. Patient arrives by ambulance to the emergency department. Nursing notes are reviewed and incorporated into the medical decision-making. Vital signs reviewed. Peripheral IV access obtained by the nurse, laboratory studies are drawn and sent, reviewed and interpreted by myself. Vital Signs Temp Pulse Resp BP Pulse Ox 98.2 F 90 18 138/85 100 07/08/16 09:32 07/08/16 09:32 07/08/16 09:32 07/08/16 09:32 07/08/16 09:51 46-year-old female with past medical history of schizophrenia, asthma, COPD, arthritis presents with tachycardia. Patient was at [facility] yesterday for an asthma exacerbation where she was given up to 6 doses of combivent and Solu-Medrol the patient was discharged. This morning, she had taken a couple coffee and subsequently developed rapid palpitations. EMS was activated and the reported that the patient SVT. The patient's heart rate and SVT resolved with vagal maneuvers on blowing a syringe. Patient reports symptoms resolved. Patient denied chest pain but reported palpitations. The only complaint she has now is her chronic knee pain as well as persistent wheezing from her asthma. The patient is still wheezing. We'll give more nebulizers and a dose of prednisone here. We'll obtain chest x-ray. Patient's SVT is also resolved. EKG demonstrates no dysrhythmias at this time. We'll obtain labs including troponin and observe patient on telemetry. 07/08/16 11:53 CBC, BMP 07/08/16 09:51 07/08/16 09:51 CMP Sodium 142 mmol/L (136-145) 07/08/16 09:51 Potassium 4.7 mmol/L (3.5-5.1) D 07/08/16 09:51 Chloride 109 mmol/L (98-107) H 07/08/16 09:51 Carbon Dioxide 24 mmol/L (21-32) 07/08/16 09:51 Anion Gap 9 (8-16) 07/08/16 09:51 BUN 9 mg/dL (7-18) D 07/08/16 09:51 Creatinine 0.8 mg/dL (0.55-1.02) D 07/08/16 09:51 Creat Clearance w eGFR > 60 (>60) 07/08/16 09:51 Random Glucose 94 mg/dL (74-106) 07/08/16 09:51 Calcium 8.5 mg/dL (8.5-10.1) 07/08/16 09:51 Magnesium 2.3 mg/dL (1.8-2.4) 07/08/16 09:51 Total Bilirubin 0.2 mg/dL (0.2-1.0) 07/08/16 09:51 AST 15 U/L (15-37) D 07/08/16 09:51 ALT 16 U/L (12-78) D 07/08/16 09:51 Alkaline Phosphatase 78 U/L (45-117) D 07/08/16 09:51 Creatine Kinase 137 IU/L (26-192) 07/08/16 09:51 Troponin I < 0.02 ng/ml (0.00-0.05) 07/08/16 09:51 Total Protein 7.2 g/dl (6.4-8.2) 07/08/16 09:51 Albumin 3.9 g/dl (3.4-5.0) 07/08/16 09:51 Serum , Qual Negative 07/08/16 09:51 Chest xray reviewed. Atelectasis. Patient has been observed on telemetry noticed no return SVT. However, the patient continues to wheeze despite several treated with albuterol and Solu- Medrol. 2 g of magnesium and azithromycin was initiated. Patient continues to wheeze. Even that the patient has trialed outpatient management but failed. We' ll admit the patient to the hospital for asthma exacerbation SVT. Case discussed with Dr. Rodriguez who accepts the patient. Requests Dr. Rivera for cardiology. Case discussed in detail with admitting physician including history, physical exam and ancillary studies. Admitting physician has assumed care for the patient, will follow all pending diagnostics and will complete the evaluation and treatment. <Russ Garcia - Last Filed: 07/08/16 11:57> *DC/Admit/Observation/Transfer - Attestations Scribe Attestion: 07/08/16 10:27 Documentation prepared by Will Jin, acting as medical appointment scheduler for Russ Garcia MD <Will Jin - Last Filed: 07/08/16 10:35> - Discharge Dispostion Admit: Yes <Russ Garcia - Last Filed: 07/08/16 11:57> Diagnosis at time of Disposition: Palpitations Asthma Qualifiers: Asthma severity: unspecified severity Asthma complication type: with acute exacerbation Qualified Code(s): J45.901 - Unspecified asthma with (acute) exacerbation - Discharge Dispostion Condition at time of disposition: Stable - Referrals Referrals: Denice Nugent [Primary Care Provider] -
[2016-07-08] MEDS ORDERED: ALBUTEROL SO4 2.5/IPRATROPIUM 0.5 INH SOL 3 ML VIAL.NEB. NEB ONE (10:08)
[2016-07-08] MEDS ORDERED: methylPREDNISolone NA SUCC 125 MG/2 ML VIAL ONE (10:08)
[2016-07-08] MEDS ORDERED: traMADol HCL 50 MG TABLET ONE (10:08)
[2016-07-08 10:10] LABS: BASOPHIL 0.3 % (0-2.0); MCHC 31.6 g/dl (32.0-36.0); MEAN CELL VOLUME 59.4 fl (80-96); MEAN PLT VOLUME 8.4 fl (7.5-11.1); PLATELET COUNT 362 K/MM3 (134-434); WHITE BLOOD COUNT 4.4 K/mm3 (4.0-10.0)
[2016-07-08 10:16] LABS: MCH 18.8 pg (25.7-33.7)
[2016-07-08] MEDS ORDERED: methylPREDNISolone NA SUCC 125 MG/2 ML VIAL IVPB ONE (10:16)
[2016-07-08 10:33] LABS: ALBUMIN 3.9 g/dl (3.4-5.0); ALK PHOS 78 U/L (45-117); ANION GAP 9 (8-16); BILIRUBIN,TOTAL 0.2 mg/dL (0.2-1.0); CALCIUM 8.5 mg/dL (8.5-10.1); CO2 24 mmol/L (21-32); COCKROFT - GAULT 144.5765; CREATININE 0.8 mg/dL (0.55-1.02); GLUCOSE,RANDOM 94 mg/dL (74-106); SGOT/AST 15 U/L (15-37); SGPT/ALT 16 U/L (12-78); TOT PROT 7.2 g/dl (6.4-8.2)
[2016-07-08 10:35] LABS: TROPONIN I < 0.02 ng/ml (0.00-0.05)
[2016-07-08 10:49] LABS: MAGNESIUM 2.3 mg/dL (1.8-2.4)
[2016-07-08] MEDS ORDERED: AZITHROMYCIN IVPB 500 MG in DEXTROSE 5%-WATER - 250 ML IVPB ONE (10:49)
[2016-07-08] MEDS ORDERED: MAGNESIUM SULF 50% (8.12 MEQ/2 ML-1 GM VIAL) IVPB ONE (10:49)
[2016-07-08] MEDS ORDERED: AZITHROMYCIN IVPB 250 ML IVPB ONE (11:08)
[2016-07-08] MEDS ORDERED: MAGNESIUM SULF 50% (8.12 MEQ/2 ML-1 GM VIAL) ONE (11:08)
--- NOTE | 2016-07-08 13:43 | CON.CARD ---
Consult Consult Specialty:: Cardiology Referred by:: Hospitalist Medicine Reason for Consultation:: Palpitations - History of Present Illness Chief Complaint: Palpitations History of Present Illness: The patient is a 46 year old female brought via EMS, with a significant past medical history of asthma post recent flare, arthritis, schizophrenia, polysubstance abuse referred to the emergency department with chest pain and palpitations after drinking coffee this morning, according to EMS was in PSVT 170's-180's (rhythm strip not recorded) before breaking with vagal manuever. She describes her chest pain as sharp, ranging from mild to moderate, without radiation or modifying factors. She denies shortness of breath, dizziness or true syncope, orthopnea, PND or LE edema. Allergies: Penicillin, tomatoes, fish containing products Past surgical history: Cholecystectomy, Sx for twisted intestine in 2003 Social history: Cigarette use (3 daily). Alcohol, cocaine, heroin and marijuana use. (Previous detox admissions) - History Source History Provided By: Medical Record Limitations to Obtaining History: Poor Historian - Past Medical History ...LMP: 02/12/16 - Alcohol/Substance Use Hx Alcohol Use: No - Smoking History Smoking history: Current every day smoker Have you smoked in the past 12 months: Yes Aproximately how many cigarettes per day: 3 Home Medications - Allergies Allergies/Adverse Reactions: Allergies Allergy/AdvReac Type Severity Reaction Status Date / Time Penicillins Allergy Mild Hives Verified 07/08/16 09:31 Fish Containing Products Allergy Hives Verified 07/08/16 09:31 tomatoes Allergy Hives Uncoded 07/08/16 09:31 - Home Medications Home Medications: Ambulatory Orders Aripiprazole [Abilify -] 15 mg PO BID 09/18/11 Benztropine Mesylate [Cogentin -] 2 mg PO BID 09/18/11 Quetiapine Fumarate [Seroquel -] 200 mg PO HS 09/18/11 Lamotrigine [Lamictal -] 25 mg PO BID #60 tablet 12/12/15 Albuterol Sulfate Inhaler - [Ventolin HFA Inhaler -] 2 puff IH Q4H PRN #1 inhaler 05/07/16 Budesonide/Formeterol Fumarate [SYMBICORT 80/4.5mcg -] 2 puff IH BID #1 inhaler 05/07/16 Oxycodone HCl/Acetaminophen [Percocet 10-325 mg Tablet] 1 each PO QID #20 tablet MDD 4 05/07/16 Family Disease History - Family Disease History Family Disease History: Heart Disease: Mother (), CA: Father () Review of Systems - Review of Systems Cardiovascular: reports: Chest Pain, Palpitations Vital Signs: Vital Signs Temperature 98.2 F 07/08/16 09:32 Pulse Rate 90 07/08/16 11:37 Respiratory Rate 16 07/08/16 11:37 Blood Pressure 124/67 07/08/16 11:37 O2 Sat by Pulse Oximetry (%) 100 07/08/16 11:37 Constitutional: Yes: No Distress, Calm Neck: Yes: Supple Respiratory: Yes: Regular, Diminished Gastrointestinal: Yes: Normal Bowel Sounds, Soft, Abdomen, Obese Cardiovascular: Yes: Regular Rate and Rhythm JVD: No Carotid Bruit: No Heart Sounds: Yes: S1, S2 Murmur: Yes: Systolic Murmur, Grade 1 Edema: No - Other Data Ejection Fraction %: LVEF > or = 40 % Imaging - Results Chest X-ray: Report Reviewed (NAD) Problem List - Problems (1) Palpitations Code(s): R00.2 - PALPITATIONS (2) Asthma Code(s): J45.909 - UNSPECIFIED ASTHMA, UNCOMPLICATED Qualifiers: Asthma severity: unspecified severity Asthma complication type: with acute exacerbation Qualified Code(s): J45.901 - Unspecified asthma with ( acute) exacerbation (3) Cocaine dependence, uncomplicated Code(s): F14.20 - COCAINE DEPENDENCE, UNCOMPLICATED (4) Schizophrenia Code(s): F20.9 - SCHIZOPHRENIA, UNSPECIFIED (5) Paroxysmal supraventricular tachycardia Code(s): I47.1 - SUPRAVENTRICULAR TACHYCARDIA (6) Atypical chest pain Code(s): R07.89 - OTHER CHEST PAIN Assessment/Plan 1. Atypical chest pain syndrome 2. Palpitations referable to PSVT->SR 3. Schizophrenia 4. Polysubstance abuse 5. Asthma post recent flare P:1. Start Cardizem CD 120 qd 2. Echocardiogram to assess ventricular and valve fxn, check TSH 3. Abstinence from toxic habits 4. Thank you for consultative opportunity
--- NOTE | 2016-07-08 14:00 | EKG ---
Test Reason : Blood Pressure : / mmHG Vent. Rate : 093 BPM Atrial Rate : 093 BPM P-R Int : 164 ms QRS Dur : 080 ms QT Int : 398 ms P-R-T Axes : 066 007 026 degrees QTc Int : 494 ms NORMAL SINUS RHYTHM CANNOT RULE OUT SEPTAL INFARCT , AGE UNDETERMINED ABNORMAL ECG WHEN COMPARED WITH ECG OF 26-FEB-2016 12:48, QT HAS LENGTHENED Confirmed by MALLORY CAVAZOS MD ([id number]) on 07/08/2016 1:59:55 PM Referred By: Confirmed By:MALLORY CAVAZOS MD
[2016-07-08 14:36] LABS: ANISOCYTOSIS 2+; FRAGMENTED CELL 3+; MICROCYTOSIS 1+; POIKILOCYTOSIS 2+
[2016-07-08 14:37] LABS: OVALOCYTES 2+; TARGET CELLS 1+; TEAR DROP CELLS 1+
--- NOTE | 2016-07-08 17:49 | HP ---
Admitting History and Physical - Primary Care Physician PCP: Jeremiah Rodriguez - Admission History of Present Illness: - 46 year old female brought via EMS, with a significant past medical history of asthma post recent flare, arthritis, schizophrenia, polysubstance abuse referred to the emergency department with chest pain and palpitations after drinking coffee this morning, according to EMS was in PSVT 170's-180's (rhythm strip not recorded) before breaking with vagal manuever. She describes her chest pain as sharp, ranging from mild to moderate, without radiation or modifying factors. She denies shortness of breath, dizziness or true syncope, orthopnea, PND or LE edema. - Past Medical History Pulmonary: Yes: Asthma ...LMP: 02/12/16 Psych: Yes: Schizophrenia - Smoking History Smoking history: Current every day smoker Have you smoked in the past 12 months: Yes Aproximately how many cigarettes per day: 3 - Alcohol/Substance Use Hx Alcohol Use: No Home Medications - Allergies Allergies/Adverse Reactions: Allergies Allergy/AdvReac Type Severity Reaction Status Date / Time Penicillins Allergy Mild Hives Verified 07/08/16 09:31 Fish Containing Products Allergy Hives Verified 07/08/16 09:31 tomatoes Allergy Hives Uncoded 07/08/16 09:31 - Home Medications Home Medications: Ambulatory Orders Aripiprazole [Abilify -] 15 mg PO BID 09/18/11 Benztropine Mesylate [Cogentin -] 2 mg PO BID 09/18/11 Quetiapine Fumarate [Seroquel -] 200 mg PO HS 09/18/11 Lamotrigine [Lamictal -] 25 mg PO BID #60 tablet 12/12/15 Albuterol Sulfate Inhaler - [Ventolin HFA Inhaler -] 2 puff IH Q4H PRN #1 inhaler 05/07/16 Budesonide/Formeterol Fumarate [SYMBICORT 80/4.5mcg -] 2 puff IH BID #1 inhaler 05/07/16 Oxycodone HCl/Acetaminophen [Percocet 10-325 mg Tablet] 1 each PO QID #20 tablet MDD 4 05/07/16 Family Disease History - Family Disease History Family Disease History: Heart Disease: Mother (), CA: Father () Physical Examination Vital Signs: Vital Signs Temperature 98.2 F 07/08/16 09:32 Pulse Rate 92 H 07/08/16 14:52 Respiratory Rate 22 07/08/16 14:52 Blood Pressure 133/76 07/08/16 14:52 O2 Sat by Pulse Oximetry (%) 100 07/08/16 14:52 Constitutional: Yes: Anxious HENT: Yes: Atraumatic Neck: Yes: Supple Cardiovascular: Yes: Regular Rate and Rhythm Respiratory: Yes: Wheezes Gastrointestinal: Yes: Normal Bowel Sounds Extremities: Yes: WNL Neurological: Yes: Alert, Oriented Problem List - Problems (1) Atypical chest pain Assessment/Plan: will f cardiac profile tele monitoring Code(s): R07.89 - OTHER CHEST PAIN (2) Palpitations Code(s): R00.2 - PALPITATIONS (3) Asthma Assessment/Plan: on iv steroids per pulmonary Code(s): J45.909 - UNSPECIFIED ASTHMA, UNCOMPLICATED Qualifiers: Asthma severity: unspecified severity Asthma complication type: with acute exacerbation Qualified Code(s): J45.901 - Unspecified asthma with ( acute) exacerbation (4) Bilateral knee pain Assessment/Plan: prn pain meds Code(s): M25.561 - PAIN IN RIGHT KNEE M25.562 - PAIN IN LEFT KNEE Assessment/Plan Laboratory Tests 07/08/16 07/08/16 07/08/16 09:51 09:51 09:51 WBC 4.4 RBC 4.59 Hgb 8.6 L Hct 27.3 L MCV 59.4 L MCHC 31.6 L RDW 21.0 H Plt Count 362 D MPV 8.4 Neutrophils % 82.0 D Lymphocytes % 9.6 D Monocytes % 8.1 Eosinophils % 0.0 D Basophils % 0.3 Poikilocytosis 2+ Anisocytosis 2+ Microcytosis 1+ Macrocytosis Few Target Cells 1+ Tear Drop Cells 1+ Ovalocytes 2+ Fragmented RBCs 3+ Morphology Comment Slide scanned Sodium 142 Potassium 4.7 D Chloride 109 H Carbon Dioxide 24 Anion Gap 9 BUN 9 D Creatinine 0.8 D Creat Clearance w eGFR > 60 Random Glucose 94 Calcium 8.5 Magnesium 2.3 Total Bilirubin 0.2 AST 15 D ALT 16 D Alkaline Phosphatase 78 D Creatine Kinase 137 Troponin I < 0.02 Total Protein 7.2 Albumin 3.9 Serum , Qual Negative Active Medications Generic Name Dose Route Start Last Admin Trade Name Freq PRN Reason Stop Dose Admin Diltiazem HCl 120 mg 07/08/16 14:15 07/08/16 14:50 Cardizem Cd - PO 120 mg DAILY JOLANTA Administration
[2016-07-08] MEDS: oxyCODONE HCL 5 MG TABLET PO PRN (20:54)
[2016-07-08] MEDS: QUEtiapine FUMARATE 200 MG TABLET PO SCH (21:56)
[2016-07-08] MEDS: lamoTRIgine 25 MG TABLET PO SCH (21:56)
[2016-07-08] MEDS: BENZTROPINE MESYLATE 2 MG TABLET PO SCH (21:56)
[2016-07-08] MEDS: ARIPiprazole 15 MG TABLET PO SCH (21:57)
[2016-07-08] MEDS: BUDESONIDE/FORMETEROL FUMARATE 80/4.5 mcg INHALER IH SCH (21:57)
[2016-07-08 23:31] LABS: TROPONIN I < 0.02 ng/ml (0.00-0.05)
[2016-07-09 02:41] LABS: URINE APPEARANCE CLEAR; URINE BILIRUBIN NEGATIVE (NEGATIVE); URINE BLOOD NEGATIVE (NEGATIVE); URINE COLOR COLORLESS; URINE GLUCOSE (UA) NEGATIVE (NEGATIVE); URINE KETONE NEGATIVE (NEGATIVE); URINE LEUK ESTERASE NEGATIVE (NEGATIVE); URINE NITRITE NEGATIVE (NEGATIVE); URINE PROTEIN NEGATIVE (NEGATIVE); URINE UROBILINOGEN NEGATIVE E.U./dl (0.2-1.0)
[2016-07-09] MEDS: ACETAMINOPHEN 325 MG TABLET (FP) PO PRN ×3 (02:48→17:23)
[2016-07-09] MEDS: oxyCODONE HCL 5 MG TABLET PO PRN ×3 (02:50→17:21)
[2016-07-09] MEDS ORDERED: PT OWN MED DRAWER 7, Y5N ONE ×2 (04:29→21:01)
[2016-07-09] MEDS ORDERED: predniSONE 20 MG TABLET (UD) PO SCH (10:00)
[2016-07-09] MEDS: ARIPiprazole 15 MG TABLET PO SCH ×2 (10:13→21:42)
[2016-07-09] MEDS: BENZTROPINE MESYLATE 2 MG TABLET PO SCH ×2 (10:15→21:43)
[2016-07-09] MEDS: lamoTRIgine 25 MG TABLET PO SCH ×2 (10:16→21:43)
[2016-07-09] MEDS: BUDESONIDE/FORMETEROL FUMARATE 80/4.5 mcg INHALER IH SCH ×2 (10:16→21:45)
--- NOTE | 2016-07-09 12:01 | CON.PULM ---
Consult Consult Specialty:: PULMONARY Referred by:: Dr. Rodriguez Reason for Consultation:: asthma - History of Present Illness Chief Complaint: chest pain History of Present Illness: 46yo female with h/o asthma/COPD, schizophrenia, substance abuse who presents with chest pain and palpitations x 1 day. She had been seen at [facility] with shortness of breath, cough, wheezing the day before, was given prednisone and inhalers but states that she did not feel improvement. Found to be tachycardic to 170-190s in SVT which broke with vagal maneuvers. Currently still with shortness of breath, chest tightness, wheezing typical of her asthma symptoms. She is a long time smoker starting at age 14, now down to about 3 cigarettes daily. - History Source History Provided By: Patient, Medical Record Limitations to Obtaining History: No Limitations - Past Medical History Pulmonary: Yes: Asthma, COPD ...LMP: 02/12/16 ...: No Psych: Yes: Schizophrenia - Alcohol/Substance Use Hx Alcohol Use: No - Smoking History Smoking history: Current every day smoker Have you smoked in the past 12 months: Yes Aproximately how many cigarettes per day: 3 Home Medications - Allergies Allergies/Adverse Reactions: Allergies Allergy/AdvReac Type Severity Reaction Status Date / Time Penicillins Allergy Mild Hives Verified 07/08/16 09:31 Fish Containing Products Allergy Hives Verified 07/08/16 09:31 tomatoes Allergy Hives Uncoded 07/08/16 09:31 - Home Medications Home Medications: Ambulatory Orders Aripiprazole [Abilify -] 15 mg PO BID 09/18/11 Benztropine Mesylate [Cogentin -] 2 mg PO BID 09/18/11 Quetiapine Fumarate [Seroquel -] 200 mg PO HS 09/18/11 Lamotrigine [Lamictal -] 25 mg PO BID #60 tablet 12/12/15 Albuterol Sulfate Inhaler - [Ventolin HFA Inhaler -] 2 puff IH Q4H PRN #1 inhaler 05/07/16 Budesonide/Formeterol Fumarate [SYMBICORT 80/4.5mcg -] 2 puff IH BID #1 inhaler 05/07/16 Oxycodone HCl/Acetaminophen [Percocet 10-325 mg Tablet] 1 each PO QID #20 tablet MDD 4 05/07/16 Family Disease History - Family Disease History Family Disease History: Heart Disease: Mother (), CA: Father () Review of Systems - Review of Systems Constitutional: denies: Chills, Fever Eyes: denies: Recent Change in Vision HENT: denies: Throat Pain Neck: denies: Stiffness, Tenderness Cardiovascular: reports: Chest Pain, Palpitations, Shortness of Breath Respiratory: reports: Cough, SOB, Wheezing Gastrointestinal: denies: Abdominal Pain, Nausea, Vomiting Genitourinary: denies: Dysuria, Hematuria Neurological: denies: Dizziness, Headache Physical Exam Vital Sings: Vital Signs Temperature 98 F 07/09/16 10:00 Pulse Rate 70 07/09/16 10:00 Respiratory Rate 18 07/09/16 10:00 Blood Pressure 122/74 07/09/16 10:00 O2 Sat by Pulse Oximetry (%) 97 07/09/16 01:49 Constitutional: Yes: Calm Eyes: Yes: Conjunctiva Clear, EOM Intact HENT: Yes: Atraumatic, Normocephalic Neck: Yes: Supple, Trachea Midline Cardiovascular: Yes: Regular Rate and Rhythm Respiratory: Yes: Diminished (distant breath sounds), Wheezes (scattered) ...Clubbing: No Gastrointestinal: Yes: Normal Bowel Sounds, Soft. No: Tenderness Edema: No Neurological: Yes: Alert, Oriented Imaging - Results Chest X-ray: Report Reviewed, Image Reviewed Problem List - Problems (1) Atypical chest pain Code(s): R07.89 - OTHER CHEST PAIN (2) Paroxysmal supraventricular tachycardia Code(s): I47.1 - SUPRAVENTRICULAR TACHYCARDIA (3) Asthma Code(s): J45.909 - UNSPECIFIED ASTHMA, UNCOMPLICATED Qualifiers: Asthma severity: unspecified severity Asthma complication type: with acute exacerbation Qualified Code(s): J45.901 - Unspecified asthma with ( acute) exacerbation (4) Schizophrenia Code(s): F20.9 - SCHIZOPHRENIA, UNSPECIFIED Assessment/Plan Chest Pain PSVT Acute Asthma Exacerbation Smoker Substance Abuse - will start short course of medrol - inhaled bronchodilators - O2 as needed - cardiac work up in progress - smoking cessation - DVT prophylaxis Thank you for this consult Keyshawn Leach MD
[2016-07-09] MEDS ORDERED: ALBUTEROL SO4 0.083% IH SOL 2.5 MG/3 ML VIAL.NEB. NEB PRN (12:09)
[2016-07-09] MEDS: ALBUTEROL SO4 2.5/IPRATROPIUM 0.5 INH SOL 3 ML VIAL.NEB. NEB SCH ×2 (13:51→22:40)
--- NOTE | 2016-07-09 17:13 | PN ---
Progress Note, Physician - Current Medication List Current Medications: Active Medications Acetaminophen (Tylenol -) 325 mg PO Q6H PRN PRN Reason: PAIN Last Admin: 07/09/16 10:18 Dose: 325 mg Albuterol Sulfate (Ventolin 0.083% Nebulizer Soln -) 1 amp NEB Q6H PRN PRN Reason: SHORT OF BREATH/WHEEZING Albuterol/Ipratropium (Duoneb -) 1 amp NEB TIDR [facility] Last Admin: 07/09/16 13:51 Dose: 1 amp Aripiprazole (Abilify) 15 mg PO BID [facility] Last Admin: 07/09/16 10:13 Dose: 15 mg Benztropine Mesylate (Cogentin -) 2 mg PO BID [facility] Last Admin: 07/09/16 10:15 Dose: 2 mg Budesonide/Formoterol Fumarate (Symbicort 80/4.5mcg -) 2 puff IH BID [facility] Last Admin: 07/09/16 10:16 Dose: 2 puff Diltiazem HCl (Cardizem Cd -) 120 mg PO DAILY [facility] Last Admin: 07/09/16 10:13 Dose: 120 mg Lamotrigine (Lamictal -) 25 mg PO BID [facility] Last Admin: 07/09/16 10:16 Dose: 25 mg Methylprednisolone Sodium Succinate (Solu-Medrol -) 40 mg IVPB Q8H-IV [place]OL[place] Oxycodone HCl (Roxicodone -) 10 mg PO Q6H PRN PRN Reason: PAIN Last Admin: 07/09/16 10:16 Dose: 10 mg Quetiapine Fumarate (Seroquel -) 200 mg PO HS [facility] Last Admin: 07/08/16 21:56 Dose: 200 mg - Objective Vital Signs: Vital Signs Temperature 97.9 F 07/09/16 14:28 Pulse Rate 76 07/09/16 14:28 Respiratory Rate 16 07/09/16 14:28 Blood Pressure 116/71 07/09/16 14:28 O2 Sat by Pulse Oximetry (%) 97 07/09/16 01:49 Constitutional: Yes: No Distress HENT: Yes: Atraumatic Neck: Yes: Supple Cardiovascular: Yes: Regular Rate and Rhythm Respiratory: Yes: CTA Bilaterally Gastrointestinal: Yes: Normal Bowel Sounds Extremities: Yes: WNL Neurological: Yes: Alert, Oriented Problem List - Problems (1) Atypical chest pain Assessment/Plan: resolved troponins negative Code(s): R07.89 - OTHER CHEST PAIN (2) Palpitations Code(s): R00.2 - PALPITATIONS (3) Asthma Assessment/Plan: on iv steroids per pulmonary Code(s): J45.909 - UNSPECIFIED ASTHMA, UNCOMPLICATED Qualifiers: Asthma severity: unspecified severity Asthma complication type: with acute exacerbation Qualified Code(s): J45.901 - Unspecified asthma with ( acute) exacerbation (4) Bilateral knee pain Assessment/Plan: prn pain meds Code(s): M25.561 - PAIN IN RIGHT KNEE M25.562 - PAIN IN LEFT KNEE
[2016-07-09] MEDS: methylPREDNISolone NA SUCC 40 MG/1 ML VIAL IVPB SCH (17:21)
[2016-07-09 18:41] LABS: TROPONIN I < 0.02 ng/ml (0.00-0.05)
[2016-07-09] MEDS: QUEtiapine FUMARATE 200 MG TABLET PO SCH (21:44)
[2016-07-10] MEDS: methylPREDNISolone NA SUCC 40 MG/1 ML VIAL IVPB SCH (01:28)
[2016-07-10] MEDS: ACETAMINOPHEN 325 MG TABLET (FP) PO PRN (03:20)
[2016-07-10] MEDS: oxyCODONE HCL 5 MG TABLET PO PRN (03:20)
[2016-07-10] MEDS: ALBUTEROL SO4 2.5/IPRATROPIUM 0.5 INH SOL 3 ML VIAL.NEB. NEB SCH (06:25)
[2016-07-10 07:15] VITALS: BP 150/72; PULSE 73; TEMP 97.8
--- NOTE | 2016-07-10 10:47 | PN ---
Progress Note, Physician History of Present Illness: Patient eloped without being seen per nursing notes. - Objective Vital Signs: Vital Signs Temperature 97.8 F 07/10/16 06:00 Pulse Rate 73 07/10/16 06:00 Respiratory Rate 18 07/10/16 06:00 Blood Pressure 150/72 07/10/16 06:00 O2 Sat by Pulse Oximetry (%) 98 07/10/16 00:24 Problem List - Problems (1) Palpitations Code(s): R00.2 - PALPITATIONS (2) Asthma Code(s): J45.909 - UNSPECIFIED ASTHMA, UNCOMPLICATED Qualifiers: Asthma severity: unspecified severity Asthma complication type: with acute exacerbation Qualified Code(s): J45.901 - Unspecified asthma with ( acute) exacerbation (3) Cocaine dependence, uncomplicated Code(s): F14.20 - COCAINE DEPENDENCE, UNCOMPLICATED (4) Schizophrenia Code(s): F20.9 - SCHIZOPHRENIA, UNSPECIFIED (5) Paroxysmal supraventricular tachycardia Code(s): I47.1 - SUPRAVENTRICULAR TACHYCARDIA (6) Atypical chest pain Code(s): R07.89 - OTHER CHEST PAIN Assessment/Plan 07/08/2016 Echocardiogram: Normal LV size and fxn, mild LAE, mild MR 1. Atypical chest pain syndrome 2. Palpitations referable to PSVT->SR 3. Schizophrenia 4. Polysubstance abuse 5. Acute Asthma Exacerbation P:1. Continue Cardizem CD 120 qd 2. Ruled out for [facility] 3. Abstinence from toxic habits 4. BD, steroid course, O2, DVT prophylaxis 5. Patient eloped before d/c plans formulated
--- NOTE | 2016-07-10 17:58 | DS ---
Physical Examination Vital Signs: Vital Signs Temperature 97.8 F 07/10/16 06:00 Pulse Rate 73 07/10/16 06:00 Respiratory Rate 18 07/10/16 06:00 Blood Pressure 150/72 07/10/16 06:00 O2 Sat by Pulse Oximetry (%) 98 07/10/16 00:24 Discharge Summary Reason For Visit: PALPITATIONS; ASTHMA - Instructions Referrals: Denice Nugent [Primary Care Provider] - Disposition: ELOPED - Home Medications Comprehensive Discharge Medication List: Ambulatory Orders Aripiprazole [Abilify -] 15 mg PO BID 09/18/11 Benztropine Mesylate [Cogentin -] 2 mg PO BID 09/18/11 Quetiapine Fumarate [Seroquel -] 200 mg PO HS 09/18/11 Lamotrigine [Lamictal -] 25 mg PO BID #60 tablet 12/12/15 Albuterol Sulfate Inhaler - [Ventolin HFA Inhaler -] 2 puff IH Q4H PRN #1 inhaler 05/07/16 Budesonide/Formeterol Fumarate [SYMBICORT 80/4.5mcg -] 2 puff IH BID #1 inhaler 05/07/16 Oxycodone HCl/Acetaminophen [Percocet 10-325 mg Tablet] 1 each PO QID #20 tablet MDD 4 05/07/16 pt eloped
== END 2016-07-10 09:35 | disposition left against medical advice (07) ==
LOC: JER 09:22 → JERBED 11:57 → J4S 20:39
PROVIDERS: ADMIT Internal Medicine; ATTEND Internal Medicine
PROC: 3E0333Z Introduction of Anti-inflammatory into Peripheral Vein, Percutaneous Approach (ICD-10-PCS; principal; 2016-07-08)
PROC: 3E033NZ Introduction of Analgesics, Hypnotics, Sedatives into Peripheral Vein, Percutaneous Approach (ICD-10-PCS; 2016-07-08)
PROC: 3E033GC Introduction of Other Therapeutic Substance into Peripheral Vein, Percutaneous Approach (ICD-10-PCS; 2016-07-08)
PROC: 3E0337Z Introduction of Electrolytic and Water Balance Substance into Peripheral Vein, Percutaneous Approach (ICD-10-PCS; 2016-07-08)
PROC: 3E0F7GC Introduction of Other Therapeutic Substance into Respiratory Tract, Via Natural or Artificial Opening (ICD-10-PCS; 2016-07-08)
DX: R07.89 Other chest pain (principal); J45.901 Unspecified asthma with (acute) exacerbation; R00.2 Palpitations; J44.9 Chronic obstructive pulmonary disease, unspecified; D64.9 Anemia, unspecified; F14.20 Cocaine dependence, uncomplicated; I47.1 Supraventricular tachycardia; F17.210 Nicotine dependence, cigarettes, uncomplicated; F20.9 Schizophrenia, unspecified; Z87.442 Personal history of urinary calculi; Z91.5 Personal history of self-harm; Z90.49 Acquired absence of other specified parts of digestive tract; Z88.0 Allergy status to penicillin; Z91.013 Allergy to seafood; M25.562 Pain in left knee; M25.561 Pain in right knee; M19.90 Unspecified osteoarthritis, unspecified site
CPT/HCPCS: 36415; 71010-TC; 80053; 81003; 82550; 83735; 84443; 84484; 84703; 85025; 93005; 93010; 93306-TC; 94640; 99285-25; G0378

== ENCOUNTER 2016-07-20 21:19 | Emergency (ER) | payer OTHER ==
[2016-07-20 21:22] VITALS: TEMP 98.2; BMI 31.7
[2016-07-20] MEDS ORDERED: traMADol HCL 50 MG TABLET PO ONE (21:41)
[2016-07-20] MEDS: IBUPROFEN 400 MG TABLET (FP) PO ONE ×2 (21:55→22:07)
--- NOTE | 2016-07-20 22:55 | PDOC ---
History of Present Illness - General Chief Complaint: Injury Stated Complaint: FELL Time Seen by Provider: 07/20/16 21:23 History Source: Patient Exam Limitations: No Limitations - History of Present Illness Initial Comments: 07/20/16 22:50 46yo Female patient w/ PmHx: Asthma, COPD presents to ED via EMS c/o left knee injury. Patient state while stepping out of her bath tub, she slipped and banged her knee against the side of tub. Patient reports difficult time ambulating. She denies any other complaints at this time. LNMP: Current. No OTC medications given. Occurred: reports: just prior to arrival Severity: reports: moderate Pain Location: reports: lower extremity Method of Injury: Yes: fall Modifying Factors: worse with: None, cold therapy, immobilization, pain medication, rest, other Loss of Consciousness: no loss of consciousness Associated Symptoms (Fall): denies symptoms Past History - Travel Traveled outside of the country in the last 30 days: No Close contact w/someone who was outside of country & ill: No - Past Medical History Allergies/Adverse Reactions: Allergies Allergy/AdvReac Type Severity Reaction Status Date / Time Penicillins Allergy Mild Hives Verified 07/20/16 21:21 Fish Containing Products Allergy Hives Verified 07/20/16 21:21 tomatoes Allergy Hives Uncoded 07/20/16 21:21 Home Medications: Ambulatory Orders Aripiprazole [Abilify -] 15 mg PO BID 09/18/11 Benztropine Mesylate [Cogentin -] 2 mg PO BID 09/18/11 Quetiapine Fumarate [Seroquel -] 200 mg PO HS 09/18/11 Lamotrigine [Lamictal -] 25 mg PO BID #60 tablet 12/12/15 Albuterol Sulfate Inhaler - [Ventolin HFA Inhaler -] 2 puff IH Q4H PRN #1 inhaler 05/07/16 Budesonide/Formeterol Fumarate [SYMBICORT 80/4.5mcg -] 2 puff IH BID #1 inhaler 05/07/16 Oxycodone HCl/Acetaminophen [Percocet 10-325 mg Tablet] 1 each PO QID #20 tablet MDD 4 05/07/16 Ibuprofen [Motrin -] 600 mg PO QID PRN #30 tablet 07/20/16 Tramadol HCl 50 mg PO Q8H PRN #12 tablet MDD 3 tabs 07/20/16 Anemia: Yes (NO TREATMENT) Asthma: Yes (ON MDI) Cancer: No Cardiac Disorders: No CVA: No COPD: Yes CHF: No Dementia: No Diabetes: No GI Disorders: No Disorders: No HTN: No Hypercholesterolemia: No Kidney Stones: Yes (2013) Liver Disease: No Psychiatric Problems: Yes (schiz) Suicide Attempt (Hx): Yes (X2- WITH BENADRYL/?PILLS; DENIES CURRENT S/H IDEATIONS) Seizures: No Thyroid Disease: No - Surgical History Abdominal Surgery: Yes (Sx for twisted intestine in 2003) Appendectomy: No Cardiac Surgery: No Cholecystectomy: Yes (in 2003) Lung Surgery: No Neurologic Surgery: No Orthopedic Surgery: No - Reproductive History PID: No - Immunization History Immunization Up to Date: Yes - Psycho/Social/Smoking Cessation Hx Anxiety: No Suicidal Ideation: No Smoking History: Unknown if ever smoked Have you smoked in the past 12 months: No Number of Cigarettes Smoked Daily: 3 Cigars Per Day: 0 Information on smoking cessation initiated: No 'Breaking Loose' booklet given: 07/08/16 Hx Alcohol Use: No Drug/Substance Use Hx: No Substance Use Type: Alcohol, Cocaine, Marijuana Hx Substance Use Treatment: Yes ([facility]) Trauma Specific PMHX - Complaint Specific PMHX Arthritis: No Back Injury: No Neck Injury: No Hx Sacro Iliac Joint Dysfunction: No Review of Systems - Review of Systems Able to Perform ROS?: Yes Is the patient limited Swedish proficient: No Musculoskeletal: Yes: Joint Pain, Joint Swelling All Other Systems: Reviewed and Negative *Physical Exam - Vital Signs Last Vital Signs Temp Pulse Resp BP Pulse Ox 98.2 F 86 20 128/69 99 07/20/16 21:21 07/20/16 21:21 07/20/16 21:21 07/20/16 21:21 07/20/16 21:21 - Physical Exam General Appearance: Yes: Nourished, Appropriately Dressed. No: Apparent Distress, Mild Distress, Moderate Distress, Severe Distress Neck: positive: Trachea midline, Supple. negative: Tender lateral, Tender midline Respiratory/Chest: positive: Lungs Clear, Normal Breath Sounds. negative: Chest Tender, Respiratory Distress, Accessory Muscle Use, Labored Respiration, Rapid RR, Crackles, Rhonchi, Stridor, Wheezing Cardiovascular: positive: Regular Rhythm, Regular Rate Gastrointestinal/Abdominal: positive: Normal Bowel Sounds, Soft. negative: Distended, Guarding, Rebound, Tenderness Musculoskeletal: positive: Normal Inspection. negative: CVA Tenderness, Decreased Range of Motion, Vertebral Tenderness Extremity: positive: Normal Capillary Refill, Normal Inspection, Swelling (Lt Knee). 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, Fully Oriented, Alert, Normal Mood/ Affect, Normal Response, Motor Strength 06/21 ED Treatment Course - RADIOLOGY Radiology Studies Ordered: Category Date Time Status KNEE 2 POS-LEFT [RAD] Stat Radiology 07/20/16 21:41 Taken - Medications Given in the ED: ED Medications Discontinued Medications Generic Name Dose Route Start Last Admin Trade Name Freq PRN Reason Stop Dose Admin Ibuprofen 800 mg 07/20/16 21:41 07/20/16 22:07 Motrin - PO 07/20/16 21:42 Not Given ONCE ONE Tramadol HCl 50 mg 07/20/16 21:41 07/20/16 21:55 Ultram - PO 07/20/16 21:42 50 mg ONCE ONE Administration *DC/Admit/Observation/Transfer Diagnosis at time of Disposition: Fall Qualifiers: Encounter type: initial encounter Qualified Code(s): W19.XXXA - Unspecified fall, initial encounter Left knee injury Qualifiers: Encounter type: initial encounter Qualified Code(s): S89.92XA - Unspecified injury of left lower leg, initial encounter - Discharge Dispostion Disposition: HOME Condition at time of disposition: Stable Admit: No - Prescriptions Prescriptions: Ibuprofen [Motrin -] 600 mg PO QID PRN #30 tablet PRN Reason: Mild Pain Tramadol HCl 50 mg PO Q8H PRN #12 tablet MDD 3 tabs PRN Reason: Severe Pain - Referrals Referrals: Denice Nugent [Primary Care Provider] - Dylan Daily MD [Staff Physician] - - Patient Instructions Printed Discharge Instructions: How to Prevent Falls, DI for Knee Pain Additional Instructions: FOLLOW UP WITH DR. DAILY (ORTHOPEDIST) IF SYMPTOMS CONTINUE PAST 1 WEEK. TAKE MEDICATIONS PRESCRIBED. DO NOT DRIVE, DRINK ALCOHOL, OR OPERATE HEAVY MACHINERY WHILE TAKING TRAMADOL. APPLY COLD COMPRESS TO AFFECTED AREA NEEDED. MOTRIN OR TYLENOL FOR MILD PAIN. Print Language: GUATEMALAN
[2016-07-21 06:05] VITALS: BP 132/78; PULSE 74
== END 2016-07-21 01:40 | disposition home or self-care (01) ==
LOC: JER 21:19
DX: S89.82XA Other specified injuries of left lower leg, initial encounter (principal); W18.2XXA Fall in (into) shower or empty bathtub, initial encounter; Y93.E1 Activity, personal bathing and showering; Y92.031 Bathroom in apartment as the place of occurrence of the external cause; D64.9 Anemia, unspecified; J45.909 Unspecified asthma, uncomplicated; J44.9 Chronic obstructive pulmonary disease, unspecified; F20.9 Schizophrenia, unspecified
CPT/HCPCS: 73560-TC-LT; 99282-25

== ENCOUNTER 2016-07-31 02:44 | Emergency (ER) | payer OTHER ==
--- NOTE | 2016-07-31 03:08 | PDOC ---
History of Present Illness - General Stated Complaint: KNEE PAIN Time Seen by Provider: 07/31/16 02:58 History Source: Patient Exam Limitations: No Limitations - History of Present Illness Initial Comments: 07/31/16 03:03 46yo Female patient w/ PmHx: COPD, Asthma presents to ED c/o Left Knee pain. Patient was seen 07-20-2016 for fall while exiting her tub. Patient states she followed up with Orthopedist, but they did not accept her health insurance. Patient denies any other complaints at this time. Severity: Yes: moderate Lower Extremity Pain Location: left: knee Method of Injury: Yes: fell Modifying Factors: improves with: pain medication Lower Ext. Injury Location - Specific Injury Location Knees: right non-tender, left soft tissue tenderness, left bone tenderness, left pain, bilateral no evidence of injury, bilateral normal range of motion, bilateral normal inspection Extremity Pain Location - Extremity Pain Location Extremity Pain Locations: left: knee Past History - Travel Traveled outside of the country in the last 30 days: No Close contact w/someone who was outside of country & ill: No - Past Medical History Allergies/Adverse Reactions: Allergies Allergy/AdvReac Type Severity Reaction Status Date / Time Penicillins Allergy Mild Hives Verified 07/20/16 21:21 Fish Containing Products Allergy Hives Verified 07/20/16 21:21 tomatoes Allergy Hives Uncoded 07/20/16 21:21 Home Medications: Ambulatory Orders Aripiprazole [Abilify -] 15 mg PO BID 09/18/11 Benztropine Mesylate [Cogentin -] 2 mg PO BID 09/18/11 Quetiapine Fumarate [Seroquel -] 200 mg PO HS 09/18/11 Lamotrigine [Lamictal -] 25 mg PO BID #60 tablet 12/12/15 Albuterol Sulfate Inhaler - [Ventolin HFA Inhaler -] 2 puff IH Q4H PRN #1 inhaler 05/07/16 Budesonide/Formeterol Fumarate [SYMBICORT 80/4.5mcg -] 2 puff IH BID #1 inhaler 05/07/16 Oxycodone HCl/Acetaminophen [Percocet 10-325 mg Tablet] 1 each PO QID #20 tablet MDD 4 05/07/16 Ibuprofen [Motrin -] 600 mg PO QID PRN #30 tablet 07/20/16 Tramadol HCl 50 mg PO Q8H PRN #12 tablet MDD 3 tabs 07/20/16 Anemia: Yes (NO TREATMENT) Asthma: Yes (ON MDI) Cancer: No Cardiac Disorders: No CVA: No COPD: Yes CHF: No Dementia: No Diabetes: No GI Disorders: No Disorders: No HTN: No Hypercholesterolemia: No Kidney Stones: Yes (2013) Liver Disease: No Psychiatric Problems: Yes (schiz) Suicide Attempt (Hx): Yes (X2- WITH BENADRYL/?PILLS; DENIES CURRENT S/H IDEATIONS) Seizures: No Thyroid Disease: No - Surgical History Abdominal Surgery: Yes (Sx for twisted intestine in 2003) Appendectomy: No Cardiac Surgery: No Cholecystectomy: Yes (in 2003) Lung Surgery: No Neurologic Surgery: No Orthopedic Surgery: No - Reproductive History PID: No - Immunization History Immunization Up to Date: Yes - Psycho/Social/Smoking Cessation Hx Anxiety: No Suicidal Ideation: No Smoking History: Unknown if ever smoked Have you smoked in the past 12 months: No Number of Cigarettes Smoked Daily: 3 Cigars Per Day: 0 'Breaking Loose' booklet given: 07/08/16 Hx Alcohol Use: No Drug/Substance Use Hx: No Substance Use Type: Alcohol, Cocaine, Marijuana Hx Substance Use Treatment: Yes ([facility]) Review of Systems - Review of Systems Able to Perform ROS?: Yes Is the patient limited Polish proficient: No Constitutional: No: Chills, Fever Musculoskeletal: Yes: Joint Pain All Other Systems: Reviewed and Negative *Physical Exam - Physical Exam General Appearance: Yes: Nourished, Appropriately Dressed. No: Apparent Distress, Mild Distress, Moderate Distress, Severe Distress Neck: positive: Trachea midline, Supple. negative: Decreased range of motion, Stridor, Lymphadenopathy (R), Lymphadenopathy (L) Respiratory/Chest: positive: Lungs Clear, Normal Breath Sounds. negative: Chest Tender, Respiratory Distress, Accessory Muscle Use, Labored Respiration, Rapid RR Cardiovascular: positive: Regular Rhythm, Regular Rate Gastrointestinal/Abdominal: positive: Normal Bowel Sounds, Soft. negative: Distended, Guarding, Rebound, Tenderness Musculoskeletal: positive: Normal Inspection. negative: CVA Tenderness, CVA Tenderness (R), CVA Tenderness (L), Decreased Range of Motion Extremity: positive: Normal Capillary Refill, Normal Inspection, Normal Range of Motion. 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 CALL TO SCHEDULE APPOINTMENT. MOTRIN OR TYLENOL FOR PAIN. DO NOT USE THE EMERGENCY DEPARTMENT FOR YOUR PAIN MANAGEMENT NEEDS. FOLLOW UP WITH YOUR DOCTOR. Print Language: PANAMANIAN
[2016-07-31] MEDS ORDERED: KETOROLAC TROMETHAMINE 30 MG/1 ML VIAL IM ONE (03:09)
[2016-07-31] MEDS ORDERED: OXYCODONE/APAP 5/325MG COMBO TABLET PO ONE (03:09)
[2016-07-31 03:18] VITALS: BP 110/59; PULSE 95; TEMP 98.7; BMI 41.5
[2016-07-31] MEDS ORDERED: OXYCODONE/APAP 5/325MG COMBO TABLET ONE (03:19)
[2016-07-31] MEDS ORDERED: KETOROLAC TROMETHAMINE 60 MG/2 ML VIAL ONE (03:20)
--- NOTE | 2016-07-31 03:51 | PDOC ---
*Physical Exam - Vital Signs Last Vital Signs Temp Pulse Resp BP Pulse Ox 98.7 F 95 H 14 110/59 100 07/31/16 03:16 07/31/16 03:16 07/31/16 03:16 07/31/16 03:16 07/31/16 03:16 ED Treatment Course - Medications Given in the ED: ED Medications Discontinued Medications Generic Name Dose Route Start Last Admin Trade Name Yusuf PRN Reason Stop Dose Admin Ketorolac Tromethamine 30 mg 07/31/16 03:09 07/31/16 03:41 Toradol Injection - IM 07/31/16 03:10 30 mg ONCE ONE Administration Oxycodone/Acetaminophen 1 combo 07/31/16 03:09 07/31/16 03:30 Percocet 5/325 - PO 07/31/16 03:10 1 combo ONCE ONE Administration Medical Decision Making - Medical Decision Making 07/31/16 03:49 agree with care from SUKHDEEP Roy. Pt advised she has to follow up with the doctor provided to have pain medication written *DC/Admit/Observation/Transfer Diagnosis at time of Disposition: Knee pain, left Qualifiers: Chronicity: unspecified Qualified Code(s): M25.562 - Pain in left knee - Discharge Dispostion Disposition: HOME Condition at time of disposition: Stable - Prescriptions Prescriptions: Tramadol HCl [Ultram -] 50 mg PO Q6H #7 tablet MDD 4 - Referrals Referrals: Denice Nugent [Primary Care Provider] - - Patient Instructions Printed Discharge Instructions: DI for Knee Pain Additional Instructions: FOLLOW UP WITH ORTHOPEDIST. CALL TO SCHEDULE APPOINTMENT. MOTRIN OR TYLENOL FOR PAIN. DO NOT USE THE EMERGENCY DEPARTMENT FOR YOUR PAIN MANAGEMENT NEEDS. FOLLOW UP WITH YOUR DOCTOR. Print Language: SLOVENIAN - Post Discharge Activity
== END 2016-07-31 04:00 | disposition home or self-care (01) ==
LOC: JER 02:44
PROC: 3E0233Z Introduction of Anti-inflammatory into Muscle, Percutaneous Approach (ICD-10-PCS; principal; 2016-07-31)
DX: M25.562 Pain in left knee (principal); J45.909 Unspecified asthma, uncomplicated; J44.9 Chronic obstructive pulmonary disease, unspecified; Z88.0 Allergy status to penicillin; Z91.013 Allergy to seafood; Z91.018 Allergy to other foods; Z91.5 Personal history of self-harm
CPT/HCPCS: 99281-25

== ENCOUNTER 2016-09-07 15:18 | Emergency (ER) | payer OTHER ==
--- NOTE | 2016-09-07 15:31 | PDOC ---
History of Present Illness - General Chief Complaint: Pain Stated Complaint: ABD PAIN Time Seen by Provider: 09/07/16 15:31 Past History - Past Medical History Allergies/Adverse Reactions: Allergies Allergy/AdvReac Type Severity Reaction Status Date / Time Penicillins Allergy Mild Hives Verified 09/07/16 15:28 Fish Containing Products Allergy Hives Verified 09/07/16 15:28 tomatoes Allergy Hives Uncoded 09/07/16 15:28 Home Medications: Ambulatory Orders Aripiprazole [Abilify -] 15 mg PO DAILY 09/18/11 Quetiapine Fumarate [Seroquel -] 200 mg PO HS 09/18/11 Albuterol Sulfate Inhaler - [Ventolin HFA Inhaler -] 2 puff IH Q4H PRN #1 inhaler 05/07/16 Budesonide/Formeterol Fumarate [SYMBICORT 80/4.5mcg -] 2 puff IH BID #1 inhaler 05/07/16 Anemia: Yes (NO TREATMENT) Asthma: Yes (ON MDI) Cancer: No Cardiac Disorders: No CVA: No COPD: Yes CHF: No Dementia: No Diabetes: No GI Disorders: No Disorders: No HTN: No Hypercholesterolemia: No Kidney Stones: Yes (2013) Liver Disease: No Psychiatric Problems: Yes (schiz) Suicide Attempt (Hx): Yes (X2- WITH BENADRYL/?PILLS; DENIES CURRENT S/H IDEATIONS) Seizures: No Thyroid Disease: No - Surgical History Abdominal Surgery: Yes (Sx for twisted intestine in 2003) Appendectomy: No Cardiac Surgery: No Cholecystectomy: Yes (in 2003) Lung Surgery: No Neurologic Surgery: No Orthopedic Surgery: No - Reproductive History PID: No - Immunization History Immunization Up to Date: Yes - Psycho/Social/Smoking Cessation Hx Anxiety: No Suicidal Ideation: No Smoking History: Never smoked Have you smoked in the past 12 months: No Number of Cigarettes Smoked Daily: 2 Cigars Per Day: 0 Information on smoking cessation initiated: No 'Breaking Loose' booklet given: 07/08/16 Hx Alcohol Use: No Drug/Substance Use Hx: No Substance Use Type: Alcohol, Cocaine, Marijuana Hx Substance Use Treatment: Yes ([facility]) *Physical Exam - Vital Signs Last Vital Signs Temp Pulse Resp BP Pulse Ox 97.7 F 65 20 121/71 98 09/07/16 15:28 09/07/16 15:28 09/07/16 15:28 09/07/16 15:28 09/07/16 15:28 ED Treatment Course - LABORATORY CBC & Chemistry Diagram: 09/07/16 15:53 09/07/16 15:53
[2016-09-07 15:32] VITALS: TEMP 97.7; BMI 41.5
[2016-09-07] MEDS ORDERED: morphine CARPU-JECT 4 MG/1 ML DISP.SYRIN IVPUSH ONE (15:43)
[2016-09-07] MEDS ORDERED: morphine CARPU-JECT 4 MG/1 ML DISP.SYRIN ONE (15:46)
[2016-09-07] MEDS ORDERED: KETOROLAC TROMETHAMINE 30 MG/1 ML VIAL IVPUSH ONE (15:50)
[2016-09-07] MEDS ORDERED: ONDANSETRON 4 MG/2 ML VIAL IVPUSH ONE (16:00)
[2016-09-07] MEDS ORDERED: PANTOPRAZOLE SODIUM 40 MG in SODIUM CHLORIDE 100 ML IVPB ONE (16:00)
[2016-09-07] MEDS ORDERED: SODIUM CHLORIDE 0.9% 1000 ML INFUS.BAG IV ONE (16:00)
[2016-09-07 16:07] LABS: EOSINOPHIL 3.3 % (0-4.5); MEAN CELL VOLUME 62.3 fl (80-96); MEAN PLT VOLUME 8.9 fl (7.5-11.1); PLATELET COUNT 221 K/MM3 (134-434); RDW 26.6 % (11.6-15.6); WHITE BLOOD COUNT 5.3 K/mm3 (4.0-10.0)
--- NOTE | 2016-09-07 16:08 | PDOC ---
History of Present Illness - General Chief Complaint: Pain Stated Complaint: ABD PAIN Time Seen by Provider: 09/07/16 15:31 History Source: Patient Exam Limitations: No Limitations - History of Present Illness Initial Comments: 09/07/16 16:03 Patient is a 46F with a PMH of fibroids, asthma, COPD, and schizophrenia who presents to the ED with excrutiating abdominal pain. The patient states that the pain started 1 hour ago after eating several different kinds of foods. The patient describes the pain as diffuse abdominal pain that is sharp in nature, 9/ 10 which came on abruptly and has worsened. She states that she is nauseous but has not vomited. Allergies: PCN Surg: c/s and abdominal surg LBM this morning LMP August 17 Social: Smokes 4 cigs/day, does not drink, former cocaine and marijuana user. No IVDU No hx colonoscopy 09/07/16 18:18 Past History - Past Medical History Allergies/Adverse Reactions: Allergies Allergy/AdvReac Type Severity Reaction Status Date / Time Penicillins Allergy Mild Hives Verified 09/07/16 15:28 Fish Containing Products Allergy Hives Verified 09/07/16 15:28 tomatoes Allergy Hives Uncoded 09/07/16 15:28 Home Medications: Ambulatory Orders Aripiprazole [Abilify -] 15 mg PO DAILY 09/18/11 Quetiapine Fumarate [Seroquel -] 200 mg PO HS 09/18/11 Albuterol Sulfate Inhaler - [Ventolin HFA Inhaler -] 2 puff IH Q4H PRN #1 inhaler 05/07/16 Budesonide/Formeterol Fumarate [SYMBICORT 80/4.5mcg -] 2 puff IH BID #1 inhaler 05/07/16 Anemia: Yes (NO TREATMENT) Asthma: Yes (ON MDI) Cancer: No Cardiac Disorders: No CVA: No COPD: Yes CHF: No Dementia: No Diabetes: No GI Disorders: No Disorders: No HTN: No Hypercholesterolemia: No Kidney Stones: Yes (2013) Liver Disease: No Psychiatric Problems: Yes (schiz) Suicide Attempt (Hx): Yes (X2- WITH BENADRYL/?PILLS; DENIES CURRENT S/H IDEATIONS) Seizures: No Thyroid Disease: No - Surgical History Abdominal Surgery: Yes (Sx for twisted intestine in 2003) Appendectomy: No Cardiac Surgery: No Cholecystectomy: Yes (in 2003) Lung Surgery: No Neurologic Surgery: No Orthopedic Surgery: No - Reproductive History PID: No - Immunization History Immunization Up to Date: Yes - Psycho/Social/Smoking Cessation Hx Anxiety: No Suicidal Ideation: No Smoking History: Never smoked Have you smoked in the past 12 months: No Number of Cigarettes Smoked Daily: 2 Cigars Per Day: 0 Information on smoking cessation initiated: No 'Breaking Loose' booklet given: 07/08/16 Hx Alcohol Use: No Drug/Substance Use Hx: No Substance Use Type: Alcohol, Cocaine, Marijuana Hx Substance Use Treatment: Yes ([facility]) Review of Systems - Review of Systems Able to Perform ROS?: Yes Is the patient limited Citizen [place] proficient: No Constitutional: No: Chills, Fever Respiratory: No: Shortness of Breath Cardiac (ROS): No: Chest Pain ABD/GI: Yes: Nausea, Poor Appetite, Abdominal cramping. No: Constipated, Diarrhea, Rectal Bleeding, Vomiting : No: Burning, Dysuria, Discharge *Physical Exam - Vital Signs Last Vital Signs Temp Pulse Resp BP Pulse Ox 97.7 F 65 20 121/71 98 09/07/16 15:28 09/07/16 15:28 09/07/16 15:28 09/07/16 15:28 09/07/16 15:28 - Physical Exam General Appearance: Yes: Nourished, Mild Distress Respiratory/Chest: positive: Lungs Clear, Normal Breath Sounds. negative: Chest Tender, Respiratory Distress, Accessory Muscle Use Cardiovascular: positive: Regular Rhythm, Regular Rate, S1, S2 Gastrointestinal/Abdominal: positive: Tender (Diffusely), Soft, Distended ( Slightly), Guarding, Tenderness Extremity: negative: Swelling Integumentary: positive: Normal Color, Dry, Warm. negative: Swelling Neurologic: positive: Normal Mood/Affect ED Treatment Course - LABORATORY CBC & Chemistry Diagram: 09/07/16 15:53 09/07/16 17:00 - RADIOLOGY Radiology Studies Ordered: Category Date Time Status ABDOMEN & PELVIS CT W/O CONTR [CT] Stat CT Scan 09/07/16 15:43 Ordered Medical Decision Making - Medical Decision Making 09/07/16 17:07 The patient is a 46F with a PMH of fibroids, asthma, schizophrenia, and COPD, who presents with diffuse abdominal pain. The patient has a history of substance abuse. CBC WNL. The patient has no vomiting, no diarrhea, and is actively seeking pain medication. We are giving IV protonix, zofran, and fluids to help the patient. She states that she does not feel better. 09/07/16 17:59 Patient is sitting comfortably in bed. Was eating. No WBC count. Desires to eat more. Will d/c after CMP. 09/07/16 18:18 *DC/Admit/Observation/Transfer Diagnosis at time of Disposition: Abdominal pain Qualifiers: Abdominal location: generalized Qualified Code(s): R10.84 - Generalized abdominal pain - Discharge Dispostion Disposition: HOME Condition at time of disposition: Improved Admit: No - Referrals Referrals: Denice Nugent [Primary Care Provider] - - Patient Instructions Printed Discharge Instructions: DI for Abdominal Pain-Adult - Attestations Physician Attestion: 09/07/16 18:18 I, Dr. Hoang Sutton, attest that this document has been prepared under my direction and personally reviewed by me in its entirety. I further attest, that it accurately reflects all work, treatment, procedures and medical decision -making performed by me.
[2016-09-07 16:11] LABS: MCH 19.3 pg (25.7-33.7)
[2016-09-07 17:40] LABS: PLATELET ESTIMATE ADEQUATE (NORMAL)
[2016-09-07 17:41] LABS: ANISOCYTOSIS 3+; FRAGMENTED CELL 1+; HYPOCHROMIA 3+; MICROCYTOSIS 2+; OVALOCYTES 1+; POIKILOCYTOSIS 2+; POLYCHROMASIA 1+; TARGET CELLS 1+; TEAR DROP CELLS 1+
--- NOTE | 2016-09-07 18:05 | PDOC ---
Attending Attestation - Resident Resident Name: Hoang Sutton - HPI HPI: 09/07/16 18:00 46 y/o female presents to ED c/o abdominal pain 1 hour after eating a large meal. Pt c/o nausea but no vomiting and no one else is sick after eating the same meal. PT in ED with her . 09/07/16 18:03 - Physicial Exam PE: 09/07/16 18:04 Pt is alert and oriented x3. + bs brigid cta Heart S1S2 regular Abd: slightly distended + bs abd soft no garding or rigidity, pt c/o non specific abdominal pain Neuro: alert and oriented x3 09/07/16 18:05 - Medical Decision Making 09/07/16 18:05 46 y/o female with long history of fibroids, schizophrenia, copd presented to ed c/o severe abdominal pain 1 hour after eating, shrimp, steak, chicken and a few other things. Pt treated with protonix, zofran, labs ordered and pt is now feeling a little better and was eating her husbands food in ED and was asking for more food. Pt with nl cbc, will check chemistries still pending and dc home
[2016-09-07 18:12] LABS: ALBUMIN 3.8 g/dl (3.4-5.0); ANION GAP 9 (8-16); BILIRUBIN,TOTAL 0.5 mg/dL (0.2-1.0); CALCIUM 8.8 mg/dL (8.5-10.1); CO2 22 mmol/L (21-32); CREATININE 0.8 mg/dL (0.55-1.02); GLUCOSE,RANDOM 79 mg/dL (74-106); SGOT/AST 13 U/L (15-37); SGPT/ALT 12 U/L (12-78); TOT PROT 6.8 g/dl (6.4-8.2)
[2016-09-07 18:13] LABS: ALK PHOS 42 U/L (45-117)
[2016-09-07 18:31] VITALS: BP 119/68; PULSE 69
== END 2016-09-07 18:31 | disposition home or self-care (01) ==
LOC: JER 15:18
PROC: 3E033GC Introduction of Other Therapeutic Substance into Peripheral Vein, Percutaneous Approach (ICD-10-PCS; principal; 2016-09-07)
PROC: 3E033GC Introduction of Other Therapeutic Substance into Peripheral Vein, Percutaneous Approach (ICD-10-PCS; 2016-09-07)
DX: R10.84 Generalized abdominal pain (principal); J44.9 Chronic obstructive pulmonary disease, unspecified; J45.909 Unspecified asthma, uncomplicated; F20.9 Schizophrenia, unspecified
CPT/HCPCS: 36415; 80053; 85025; 96365; 96375; 99284-25

== ENCOUNTER 2016-09-21 21:17 | Emergency (ER) | payer OTHER ==
[2016-09-21 21:43] VITALS: TEMP 97.7; BMI 38.7
[2016-09-21] MEDS ORDERED: MAG HYDROX/AL HYDROX/SIMETH 30 ML UNIT-DOSE CUP PO ONE (22:09)
[2016-09-21] MEDS ORDERED: PANTOPRAZOLE SODIUM 40 MG in SODIUM CHLORIDE 100 ML IVPB ONE (22:09)
[2016-09-21] MEDS ORDERED: ONDANSETRON 4 MG/2 ML VIAL IVPUSH ONE (22:09)
[2016-09-21] MEDS ORDERED: LOPERAMIDE HCL 2 MG CAPSULE PO ONE (22:09)
[2016-09-21] MEDS ORDERED: FAMOTIDINE 20 MG/50 ML IVPB 50 ML IVPB ONE ×2 (22:09→22:20)
--- NOTE | 2016-09-21 22:09 | PDOC ---
History of Present Illness - General Chief Complaint: Pain, Acute Stated Complaint: ABDOMINAL PAIN Time Seen by Provider: 09/21/16 21:45 - History of Present Illness Initial Comments: 09/21/16 22:02 CHIEF COMPLAINT: abdominal pain, diarrhea HISTORY OF PRESENT ILLNESS: 46 yo F with hx of cholelithiasis, COPD, asthma, presents to ED with abdominal pain and diarrhea x 2 hours. Patient reports that she was here like a few weeks ago and had diarrhea, and I keep having this problem, and my stomach is swollen." Patient denies any vomiting but reports chills, nausea, and "diarrhea like 7 times." She states that she ate an old sandwich of pastrami on rye tonight, as well as pork chops. PAST MEDICAL HISTORY: as per HPI FAMILY HISTORY: Denies SOCIAL HISTORY: Smoker, half pack daily. Marijuana, "maybe 2 blunts a day." Alcohol "on weekends, maybe 3 drinks a night when I drink." SURGICAL HISTORY: , "my intestines were tied in a knot", "gallstones, i don't know if they took out my gallbladder" ALLERGIES: No known drug allergies REVIEW OF SYSTEMS General/Constitutional: Chills. Denies fever. Denies weakness. HEENT: Denies change in vision. Denies ear pain or discharge. Denies sore throat. Cardiovascular: Denies chest pain or shortness of breath. Respiratory: Denies cough, wheezing, or hemoptysis. Gastrointestinal: Diarrhea, nausea today. Denies vomiting or constipation. Denies rectal bleeding. Genitourinary: Denies dysuria, frequency, or change in urination. Musculoskeletal: Denies joint or muscle swelling or pain. Denies neck or back pain. Skin and breasts: Denies rash or easy bruising. Neurologic: Denies headache, vertigo, loss of consciousness, or loss of sensation. PHYSICAL EXAM General Appearance: Well-appearing, appropriately dressed. No apparent distress. HEENT: EOMI, PERRLA, normal ENT inspection, normal voice, TMs normal, pharynx normal. No conjunctival pallor. No photophobia, scleral icterus. Respiratory/Chest: Lungs CTAB. No shortness of breath, chest tenderness, respiratory distress, accessory muscle use. No crackles, rales, rhonchi, stridor , wheezing, dullness Cardiovascular: RRR. S1, S2. No JVD, murmur, bradycardia, tachycardia. Vascular Pulses: Dorsalis-Pedis (R): 2+, Dorsalis-Pedis (L): 2+ Gastrointestinal/Abdominal: Tenderness to RUQ. Normal bowel sounds. Abdomen soft, non-distended. No tenderness or rebound tenderness. No organomegaly, pulsatile mass, guarding, hernia, hepatomegaly, splenomegaly. Musculoskeletal/Extremities: Normal inspection. FROM of all extremities, normal capillary refill. Pelvis Stable. No CVA tenderness. No tenderness to extremities, pedal edema, swelling, erythema or deformity. Integumentary: Appropriate color, dry, warm. No cyanosis, erythema, jaundice or rash Neurologic: major donor coordinator II-XII intact. Fully oriented, alert. Appropriate mood/affect. Motor strength 5/5. No appreciable EOM palsy, facial droop or sensory deficit. 09/21/16 22:19 Past History - Past Medical History Allergies/Adverse Reactions: Allergies Allergy/AdvReac Type Severity Reaction Status Date / Time Penicillins Allergy Mild Hives Verified 09/21/16 21:21 Fish Containing Products Allergy Hives Verified 09/21/16 21:21 tomatoes Allergy Hives Uncoded 09/21/16 21:21 Home Medications: Ambulatory Orders Aripiprazole [Abilify -] 15 mg PO DAILY 09/18/11 Quetiapine Fumarate [Seroquel -] 200 mg PO HS 09/18/11 Albuterol Sulfate Inhaler - [Ventolin HFA Inhaler -] 2 puff IH Q4H PRN #1 inhaler 05/07/16 Budesonide/Formeterol Fumarate [SYMBICORT 80/4.5mcg -] 2 puff IH BID #1 inhaler 05/07/16 Albuterol Sulfate [Proventil HFA Inhaler -] 1 - 2 inh PO QID #1 inhaler Loperamide HCl [Loperamide] 2 mg PO Q4H PRN #28 capsule 09/22/16 Ondansetron [Zofran *Odt*] 8 mg SL TID #21 od.tablet 09/22/16 Anemia: Yes (NO TREATMENT) Asthma: Yes (ON MDI) Cancer: No Cardiac Disorders: No CVA: No COPD: Yes CHF: No Dementia: No Diabetes: No GI Disorders: No Disorders: No HTN: No Hypercholesterolemia: No Kidney Stones: Yes (2013) Liver Disease: No Psychiatric Problems: Yes (schiz) Suicide Attempt (Hx): Yes (X2- WITH BENADRYL/?PILLS; DENIES CURRENT S/H IDEATIONS) Seizures: No Thyroid Disease: No - Surgical History Abdominal Surgery: Yes (Sx for twisted intestine in 2003) Appendectomy: No Cardiac Surgery: No Cholecystectomy: Yes (in 2003) Lung Surgery: No Neurologic Surgery: No Orthopedic Surgery: No - Reproductive History PID: No - Immunization History Immunization Up to Date: Yes - Psycho/Social/Smoking Cessation Hx Anxiety: No Suicidal Ideation: No Smoking History: Current every day smoker Have you smoked in the past 12 months: No Number of Cigarettes Smoked Daily: 3 Cigars Per Day: 0 Information on smoking cessation initiated: No 'Breaking Loose' booklet given: 07/08/16 Hx Alcohol Use: No Drug/Substance Use Hx: No Substance Use Type: Alcohol, Cocaine, Marijuana Hx Substance Use Treatment: Yes ([facility]) Abd/GI Specific PMHX - Complaint Specific PMHX Hepatitis: No Pancreatitis: No *Physical Exam - Vital Signs Last Vital Signs Temp Pulse Resp BP Pulse Ox 97.7 F 69 18 108/72 99 09/21/16 21:24 09/21/16 21:24 09/21/16 21:24 09/21/16 21:24 09/21/16 21:24 ED Treatment Course - LABORATORY CBC & Chemistry Diagram: 09/21/16 22:00 09/21/16 22:00 Medical Decision Making - Medical Decision Making 09/21/16 22:23 46 yo F with hx of cholelithiasis, COPD, asthma, presents to ED with abdominal pain and diarrhea x 2 hours. -CBC, CMP, lipase -UA, UCx, Utox, Upreg 09/22/16 00:52 Labs: Laboratory Tests 09/21/16 09/21/16 22:00 23:00 WBC 3.6 L D Hgb 8.5 L Hct 27.3 L MCV 62.8 L MCH 19.6 L MCHC 31.3 L RDW 24.2 H Neutrophils % 40.6 L D Monocytes % 13.1 H Eosinophils % 5.4 H [place] Bodies Seen Benzodiazepines Screen Positive Cocaine Screen Positive Given decreased WBC with [place] bodies, will order CT to evaluate spleen. CT negative for acute pathology. Loperamide, Zofran rx sent to pharm. Advised patient to f/u with PCP for further evaluation and of signs and symptoms for return to ER; patient verbalized understanding and agrees to plan. *DC/Admit/Observation/Transfer Diagnosis at time of Disposition: Abdominal pain Qualifiers: Abdominal location: generalized Qualified Code(s): R10.84 - Generalized abdominal pain - Discharge Dispostion Disposition: HOME Condition at time of disposition: Stable Admit: No - Prescriptions Prescriptions: Loperamide HCl [Loperamide] 2 mg PO Q4H PRN #28 capsule PRN Reason: Diarrhea Ondansetron [Zofran *Odt*] 8 mg SL TID #21 od.tablet - Patient Instructions Printed Discharge Instructions: DI for Diarrhea and Traveler's Diarrhea -- Adult Additional Instructions: Please take your medications as prescribed. Follow up with your primary care doctor for continued evaluation of your anemia. If you experience persistent vomiting or diarrhea, fever, chills, or any new or worsening symptoms, please return to the ER.
[2016-09-21 22:11] LABS: MCHC 31.3 g/dl (32.0-36.0); MEAN CELL VOLUME 62.8 fl (80-96); MEAN PLT VOLUME 8.9 fl (7.5-11.1); PLATELET COUNT 231 K/MM3 (134-434); RDW 24.2 % (11.6-15.6); WHITE BLOOD COUNT 3.6 K/mm3 (4.0-10.0)
[2016-09-21 22:12] LABS: MCH 19.6 pg (25.7-33.7)
[2016-09-21] MEDS ORDERED: PANTOPRAZOLE SODIUM 100 ML IVPB ONE (22:20)
[2016-09-21] MEDS ORDERED: MAG HYDROX/AL HYDROX/SIMETH 30 ML UNIT-DOSE CUP ONE (22:20)
[2016-09-21] MEDS ORDERED: ONDANSETRON 4 MG/2 ML VIAL ONE (22:20)
[2016-09-21] MEDS ORDERED: LOPERAMIDE HCL 2 MG CAPSULE ONE (22:20)
[2016-09-21 22:43] LABS: ALBUMIN 3.3 g/dl (3.4-5.0); ANION GAP 7 (8-16); BILIRUBIN,TOTAL 0.2 mg/dL (0.2-1.0); CALCIUM 8.2 mg/dL (8.5-10.1); CO2 26 mmol/L (21-32); CREATININE 0.9 mg/dL (0.55-1.02); GLUCOSE,RANDOM 93 mg/dL (74-106); SGOT/AST 12 U/L (15-37); SGPT/ALT 14 U/L (12-78); TOT PROT 5.9 g/dl (6.4-8.2)
[2016-09-21 22:44] LABS: ALK PHOS 63 U/L (45-117)
[2016-09-21 22:57] LABS: HIV 1 & 2 AB NEGATIVE; HIV 1 AGp24 NEGATIVE
[2016-09-21 23:30] LABS: URINE APPEARANCE SLCLOUDY; URINE BILIRUBIN NEGATIVE (NEGATIVE); URINE BLOOD 3+ (NEGATIVE); URINE COLOR AMBER; URINE GLUCOSE (UA) NEGATIVE (NEGATIVE); URINE KETONE TRACE (NEGATIVE); URINE LEUK ESTERASE TRACE (NEGATIVE); URINE NITRITE NEGATIVE (NEGATIVE)
[2016-09-21 23:34] LABS: NEUTROPHILS 40.6 % (42.8-82.8)
[2016-09-21 23:35] LABS: EOSINOPHIL 5.4 % (0-4.5)
[2016-09-21 23:40] LABS: ANISOCYTOSIS 3+; HYPOCHROMIA 3+; PLATELET ESTIMATE ADEQUATE (NORMAL); POIKILOCYTOSIS OCC
[2016-09-21 23:41] LABS: HOWELL-JOLLY BODIES SEEN; MICROCYTOSIS 2+
[2016-09-21 23:41] LABS: URINE PROTEIN 1+ (NEGATIVE)
[2016-09-21 23:45] LABS: URINE RBC 810 /hpf (0-3); URINE WBC 23 /hpf (3-5)
[2016-09-21 23:46] LABS: URINE BACTERIA RARE /hpf (NONE SEEN)
[2016-09-21 23:47] LABS: URINE MUCUS MANY
[2016-09-22 00:17] LABS: URINE MARIJUANA THC NEGATIVE ng/ml (CUTOFF=50)
[2016-09-22] MEDS ORDERED: KETOROLAC TROMETHAMINE 30 MG/1 ML VIAL IVPUSH ONE (00:55)
[2016-09-22] MEDS ORDERED: KETOROLAC TROMETHAMINE 30 MG/1 ML VIAL ONE (01:02)
[2016-09-22 05:56] VITALS: BP 105/66; PULSE 57
== END 2016-09-22 07:03 | disposition home or self-care (01) ==
LOC: JER 21:17
PROC: 3E033GC Introduction of Other Therapeutic Substance into Peripheral Vein, Percutaneous Approach (ICD-10-PCS; principal; 2016-09-21)
PROC: 3E0333Z Introduction of Anti-inflammatory into Peripheral Vein, Percutaneous Approach (ICD-10-PCS; 2016-09-21)
DX: R10.84 Generalized abdominal pain (principal); D64.9 Anemia, unspecified; J45.909 Unspecified asthma, uncomplicated; J44.9 Chronic obstructive pulmonary disease, unspecified; F17.210 Nicotine dependence, cigarettes, uncomplicated; Z91.5 Personal history of self-harm; Z87.442 Personal history of urinary calculi
CPT/HCPCS: 74177-TC; 80053; 80307; 81003; 81015; 83690; 84703; 85025; 87086; 87389; 96365; 96367; 96375; 99282-25

== ENCOUNTER 2016-10-12 14:46 | Emergency (ER) | payer OTHER ==
[2016-10-12 14:49] VITALS: BP 130/84; PULSE 78; TEMP 97.6; BMI 38.7
[2016-10-12] MEDS ORDERED: KETOROLAC TROMETHAMINE 60 MG/2 ML VIAL ONE (15:27)
--- NOTE | 2016-10-12 15:29 | PDOC ---
History of Present Illness - General Chief Complaint: Back Pain Stated Complaint: back spasm Time Seen by Provider: 10/12/16 14:51 - History of Present Illness Initial Comments: 10/12/16 15:25 CHIEF COMPLAINT: back spasm HISTORY OF PRESENT ILLNESS: 46 yo F with hx of cholelithiasis, COPD, asthma, presents to ED with spasms to R shoulder since this morning. Patient reports pain worsens with movement of R arm. She denies chest pain, shortness of breath , palpitations. PAST MEDICAL HISTORY: Denies past medical history FAMILY HISTORY: Denies SOCIAL HISTORY:Hx of multi substance abuse. SURGICAL HISTORY: Denies ALLERGIES: PCN, fish, tomatoes REVIEW OF SYSTEMS General/Constitutional: Denies fever or chills. HEENT: Denies change in vision. Denies ear pain or discharge. Denies sore throat. Cardiovascular: Denies chest pain or shortness of breath. Respiratory: Denies cough, wheezing, or hemoptysis. Gastrointestinal: Denies nausea, vomiting, diarrhea or constipation. Denies rectal bleeding. Genitourinary: Denies dysuria, frequency, or change in urination. Musculoskeletal: "I have back spasms on the right side." Denies joint or muscle swelling or pain. Denies neck or back pain. Skin and breasts: Denies rash or easy bruising. PHYSICAL EXAM General Appearance: Well-appearing, appropriately dressed. No apparent distress , no intoxication. HEENT: EOMI, PERRLA, normal ENT inspection, normal voice, TMs normal, pharynx normal. No conjunctival pallor. No photophobia, scleral icterus. Neck: Supple. Trachea midline. No tenderness, rigidity, carotid bruit, stridor , lymphadenopathy, or thyromegaly. Respiratory/Chest: Lungs CTAB. Cardiovascular: RRR. S1, S2. Musculoskeletal/Extremities: Tenderness to R latissimus dorsi on palpation and with movement. Normal inspection. FROM of all extremities, normal capillary refill. Pelvis Stable. No CVA tenderness. No tenderness to extremities, pedal edema, swelling, erythema or deformity. Integumentary: Appropriate color, dry, warm. No cyanosis, erythema, jaundice or rash Neurologic: lead informatica developer II-XII intact. Fully oriented, alert. Appropriate mood/affect. Motor strength 5/5. No appreciable EOM palsy, facial droop or sensory deficit. 10/12/16 15:29 Past History - Past Medical History Allergies/Adverse Reactions: Allergies Allergy/AdvReac Type Severity Reaction Status Date / Time Penicillins Allergy Mild Hives Verified 09/21/16 21:21 Fish Containing Products Allergy Hives Verified 09/21/16 21:21 tomatoes Allergy Hives Uncoded 09/21/16 21:21 Home Medications: Ambulatory Orders Aripiprazole [Abilify -] 15 mg PO DAILY 09/18/11 Quetiapine Fumarate [Seroquel -] 200 mg PO HS 09/18/11 Albuterol Sulfate Inhaler - [Ventolin HFA Inhaler -] 2 puff IH Q4H PRN #1 inhaler 05/07/16 Budesonide/Formeterol Fumarate [SYMBICORT 80/4.5mcg -] 2 puff IH BID #1 inhaler 05/07/16 Albuterol Sulfate [Proventil HFA Inhaler -] 1 - 2 inh PO QID #1 inhaler Loperamide HCl [Loperamide] 2 mg PO Q4H PRN #28 capsule 09/22/16 Ondansetron [Zofran *Odt*] 8 mg SL TID #21 od.tablet 09/22/16 Acetaminophen [Pain Reliever] 500 mg PO Q6H PRN #21 tablet 10/12/16 Ibuprofen [Motrin -] 400 mg PO TID PRN #21 tablet 10/12/16 Anemia: Yes (NO TREATMENT) Asthma: Yes (ON MDI) Cancer: No Cardiac Disorders: No CVA: No COPD: Yes CHF: No Dementia: No Diabetes: No GI Disorders: No Disorders: No HTN: No Hypercholesterolemia: No Kidney Stones: Yes (2013) Liver Disease: No Psychiatric Problems: Yes (schiz) Suicide Attempt (Hx): Yes (X2- WITH BENADRYL/?PILLS; DENIES CURRENT S/H IDEATIONS) Seizures: No Thyroid Disease: No - Surgical History Abdominal Surgery: Yes (Sx for twisted intestine in 2003) Appendectomy: No Cardiac Surgery: No Cholecystectomy: Yes (in 2003) Lung Surgery: No Neurologic Surgery: No Orthopedic Surgery: No - Reproductive History PID: No - Immunization History Immunization Up to Date: Yes - Psycho/Social/Smoking Cessation Hx Anxiety: No Suicidal Ideation: No Smoking History: Current every day smoker Have you smoked in the past 12 months: Yes Number of Cigarettes Smoked Daily: 3 Cigars Per Day: 0 Information on smoking cessation initiated: No 'Breaking Loose' booklet given: 07/08/16 Hx Alcohol Use: No Drug/Substance Use Hx: No Substance Use Type: Alcohol, Cocaine, Marijuana Hx Substance Use Treatment: Yes ([facility]) Trauma Specific PMHX - Complaint Specific PMHX Arthritis: No Back Injury: No Neck Injury: No Hx Sacro Iliac Joint Dysfunction: No *Physical Exam - Vital Signs Last Vital Signs Temp Pulse Resp BP Pulse Ox 97.6 F 78 22 130/84 100 10/12/16 14:46 10/12/16 14:46 10/12/16 14:46 10/12/16 14:46 10/12/16 14:46 Medical Decision Making - Medical Decision Making 10/12/16 15:32 46 yo F with hx of cholelithiasis, COPD, asthma, presents to ED with spasms to R shoulder since this morning. -60 mg Toradol IM *DC/Admit/Observation/Transfer Diagnosis at time of Disposition: Back pain Qualifiers: Back pain location: back pain in other location Chronicity: chronic Qualified Code(s): M54.9 - Dorsalgia, unspecified - Discharge Dispostion Disposition: HOME Condition at time of disposition: Stable Admit: No - Prescriptions Prescriptions: Ibuprofen [Motrin -] 400 mg PO TID PRN #21 tablet PRN Reason: Pain Acetaminophen [Pain Reliever] 500 mg PO Q6H PRN #21 tablet PRN Reason: Pain - Referrals Referrals: STAFF,NOT ON [Primary Care Provider] - - Patient Instructions Printed Discharge Instructions: DI for Thoracic Back Pain Additional Instructions: Please take medications as prescribed and follow up with orthopedics if pain persists. If you experience any chest pain, shortness of breath, loss of bowel or bladder function, or inability to walk, return to the ER.
[2016-10-12] MEDS: KETOROLAC TROMETHAMINE 60 MG/2 ML VIAL IM ONE ×2 (15:46→16:01)
[2016-10-12] MEDS ORDERED: diphenhydrAMINE HCL 25 MG CAPSULE (FP) PO ONE ×2 (16:04→16:06)
[2016-10-12] MEDS ORDERED: KETOROLAC TROMETHAMINE 60 MG/2 ML VIAL IM ONE (16:21)
== END 2016-10-12 16:28 | disposition home or self-care (01) ==
LOC: JERFT 14:46
PROC: 3E0233Z Introduction of Anti-inflammatory into Muscle, Percutaneous Approach (ICD-10-PCS; principal; 2016-10-12)
DX: M54.9 Dorsalgia, unspecified (principal); G89.29 Other chronic pain; J45.909 Unspecified asthma, uncomplicated; J44.9 Chronic obstructive pulmonary disease, unspecified; F20.9 Schizophrenia, unspecified; Z87.442 Personal history of urinary calculi; Z91.5 Personal history of self-harm
CPT/HCPCS: 96372; 99281-25

== ENCOUNTER 2016-10-29 02:01 | Emergency (ER) | payer OTHER ==
--- NOTE | 2016-10-29 02:15 | PDOC ---
History of Present Illness - General Chief Complaint: Respiratory Stated Complaint: DIFFICULTY BREATHING Time Seen by Provider: 10/29/16 02:14 History Source: Patient - History of Present Illness Initial Comments: 10/29/16 02:27 46 year old female with shortness and breath and wheezing that is worsening. patient prior to arrival by EMS received duoneb x 2 and decadron. as per ems improved aeration. patient is an everyday smoker with history of COPD, asthma, schizophrenia and arthritis. Past History - Past Medical History Allergies/Adverse Reactions: Allergies Allergy/AdvReac Type Severity Reaction Status Date / Time Penicillins Allergy Mild Hives Verified 10/29/16 02:18 Fish Containing Products Allergy Hives Verified 10/29/16 02:18 tomatoes Allergy Hives Uncoded 10/29/16 02:18 Home Medications: Ambulatory Orders Aripiprazole [Abilify -] 15 mg PO DAILY 09/18/11 Quetiapine Fumarate [Seroquel -] 200 mg PO HS 09/18/11 Budesonide/Formeterol Fumarate [SYMBICORT 80/4.5mcg -] 2 puff IH BID #1 inhaler 05/07/16 Albuterol Sulfate [Proventil HFA Inhaler -] 1 - 2 inh PO QID #1 inhaler Loperamide HCl [Loperamide] 2 mg PO Q4H PRN #28 capsule 09/22/16 Ondansetron [Zofran *Odt*] 8 mg SL TID #21 od.tablet 09/22/16 Acetaminophen [Pain Reliever] 500 mg PO Q6H PRN #21 tablet 10/12/16 Ibuprofen [Motrin -] 400 mg PO TID PRN #21 tablet 10/12/16 Albuterol 0.083% Nebulizer Abby [Ventolin 0.083% Nebulizer Soln -] 1 neb NEB Q4H #25 vial 10/29/16 Albuterol Sulfate Inhaler - [Ventolin HFA Inhaler -] 2 puff IH Q4H PRN #1 inhaler 10/29/16 Anemia: Yes (NO TREATMENT) Asthma: Yes (ON MDI) Cancer: No Cardiac Disorders: No CVA: No COPD: Yes CHF: No Dementia: No Diabetes: No GI Disorders: No Disorders: No HTN: No Hypercholesterolemia: No Kidney Stones: Yes (2014) Liver Disease: No Psychiatric Problems: Yes (schiz) Suicide Attempt (Hx): Yes (X2- WITH BENADRYL/?PILLS; DENIES CURRENT S/H IDEATIONS) Seizures: No Thyroid Disease: No - Surgical History Abdominal Surgery: Yes (Sx for twisted intestine in 2003) Appendectomy: No Cardiac Surgery: No Cholecystectomy: Yes (in 2003) Lung Surgery: No Neurologic Surgery: No Orthopedic Surgery: No - Reproductive History PID: No - Immunization History Immunization Up to Date: Yes - Psycho/Social/Smoking Cessation Hx Anxiety: No Suicidal Ideation: No Smoking History: Current every day smoker Have you smoked in the past 12 months: Yes Number of Cigarettes Smoked Daily: 3 Cigars Per Day: 0 'Breaking Loose' booklet given: 07/08/16 Hx Alcohol Use: No Drug/Substance Use Hx: No Substance Use Type: Alcohol, Cocaine, Marijuana Hx Substance Use Treatment: Yes ([facility]-DETOX) Respiratory Specific PMHX - Complaint Specific PMHX TB (Tuberculosis): No Review of Systems - Review of Systems Able to Perform ROS?: Yes Is the patient limited Guamanian proficient: No Constitutional: No: Symptoms Reported, See HPI, Chills, Diaphoresis, Fever, Loss of Appetite, Malaise, Night Sweats, Weakness, Weight Stable, Unintentional Wgt. Loss, Unexplained wgt Loss, Other HEENTM: No: Symptoms Reported, See HPI, Eye Pain, Blurred Vision, Tearing, Recent change in vision, Double Vision, Cataracts, Ear Pain, Ocular Prothesis, Ear Discharge, Nose Pain, Nose Congestion, Tinnitus, Nose Bleeding, Hearing Loss , Throat Pain, Throat Swelling, Mouth Pain, Dental Problems, Difficulty Swallowing, Mouth Swelling, Other Respiratory: Yes: Cough, Shortness of Breath, Wheezing Cardiac (ROS): No: Symptoms Reported, See HPI, Chest Pain, Edema, Irregular Heart Rate, Lightheadedness, Palpitations, Syncope, Chest Tightness, Other ABD/GI: No: Symptoms Reported, See HPI, Abdominal Distended, Abd. Pain w/ defecation, Blood Streaked Bowels, Constipated, Diarrhea, Difficulty Swallowing , Nausea, Poor Appetite, Poor Fluid Intake, Rectal Bleeding, Vomiting, Indigestion, Abdominal cramping, Tarry Stools, Other *Physical Exam - Vital Signs 10/29/16 02:32 Last Vital Signs Temp Pulse Resp BP Pulse Ox 97 H 16 136/105 100 10/29/16 02:19 10/29/16 02:19 10/29/16 02:19 10/29/16 02:19 - Physical Exam General Appearance: Yes: Appropriately Dressed HEENT: negative: EOMI, RALPH, Normal ENT Inspection, Normal Voice, Symmetrical, TMs Normal, Pharynx Normal, Pale Conjunctivae, Photophobia, Scleral Icterus (R) , Scleral Icterus (L), Muffled/Hoarse voice, Pharyngeal Erythema, Tonsillar Exudate, Tonsillar Erythema, Nasal Congestion, Rhinorrhea, Sinus Tenderness, Orbits, Hearing Decreased, Hearing Grossly Normal, TM Bulging, TM Dull, TM Erythema, Lesions, Bustos, Excessive drooling, Thrush, Other Neck: negative: Tender, Trachea midline, Normal Thyroid, Rigid, Supple, Carotid bruit, Decreased range of motion, Stridor, Lymphadenopathy (R), Lymphadenopathy (L), Rigidity, Tender lateral, Tender midline, Thyromegaly, Other Respiratory/Chest: positive: Rapid RR, Wheezing Cardiovascular: positive: Regular Rate, Tachycardia Gastrointestinal/Abdominal: positive: Normal Bowel Sounds, Soft Musculoskeletal: positive: Normal Inspection Extremity: positive: Normal Capillary Refill, Normal Inspection, Normal Range of Motion Integumentary: positive: Normal Color, Dry, Warm Neurologic: positive: Fully Oriented, Alert, Normal Mood/Affect Progress Note - Progress Note Progress Note: A: asthma exacerbation, anxiety P: duoneb decadron given by EMS magnesium sulfate. *DC/Admit/Observation/Transfer Diagnosis at time of Disposition: Anxiety Asthma Qualifiers: Asthma severity: moderate persistent Asthma complication type: with acute exacerbation Qualified Code(s): J45.41 - Moderate persistent asthma with (acute ) exacerbation - Discharge Dispostion Disposition: HOME - Prescriptions Prescriptions: Albuterol 0.083% Nebulizer Abby [Ventolin 0.083% Nebulizer Soln -] 1 neb NEB Q4H #25 vial Albuterol Sulfate Inhaler - [Ventolin HFA Inhaler -] 2 puff IH Q4H PRN #1 inhaler PRN Reason: Asthma - Referrals Referrals: STAFF,NOT ON [Primary Care Provider] - - Patient Instructions Printed Discharge Instructions: DI for Asthma -- Adult Additional Instructions: take albuterol as prescribed. follow up with your doctor as soon as possible. return to the ED if symptoms worsen.
[2016-10-29 02:28] VITALS: BMI 39.1
[2016-10-29] MEDS ORDERED: ALBUTEROL SO4 2.5/IPRATROPIUM 0.5 INH SOL 3 ML VIAL.NEB. NEB ONE (03:08)
[2016-10-29] MEDS ORDERED: SODIUM CHLORIDE 500 ML IV STA (03:11)
[2016-10-29] MEDS ORDERED: MAGNESIUM SULF 50% (8.12 MEQ/2 ML-1 GM VIAL) IVPB ONE (03:11)
[2016-10-29] MEDS ORDERED: MAGNESIUM SULF 50% (8.12 MEQ/2 ML-1 GM VIAL) ONE (03:13)
[2016-10-29] MEDS ORDERED: LORazepam 1 MG TABLET PO ONE (05:20)
[2016-10-29] MEDS ORDERED: LORazepam 0.5 MG TABLET ONE (05:22)
[2016-10-29 05:29] VITALS: BP 140/92; PULSE 91
== END 2016-10-29 06:57 | disposition home or self-care (01) ==
LOC: JER 02:01
PROC: 3E0F7GC Introduction of Other Therapeutic Substance into Respiratory Tract, Via Natural or Artificial Opening (ICD-10-PCS; principal; 2016-10-29)
PROC: 3E0337Z Introduction of Electrolytic and Water Balance Substance into Peripheral Vein, Percutaneous Approach (ICD-10-PCS; 2016-10-29)
PROC: 3E033GC Introduction of Other Therapeutic Substance into Peripheral Vein, Percutaneous Approach (ICD-10-PCS; 2016-10-29)
DX: J45.41 Moderate persistent asthma with (acute) exacerbation (principal); F41.9 Anxiety disorder, unspecified; J44.9 Chronic obstructive pulmonary disease, unspecified; F20.9 Schizophrenia, unspecified; M12.9 Arthropathy, unspecified; F17.210 Nicotine dependence, cigarettes, uncomplicated
CPT/HCPCS: 94640; 96361; 96374; 99283-25

== ENCOUNTER 2017-01-08 07:41 | Emergency (ER) | payer OTHER ==
[2017-01-08 07:47] VITALS: BP 128/86; PULSE 89; TEMP 98.2; BMI 38.2
== END 2017-01-08 08:46 | disposition left against medical advice (07) ==
LOC: JERFT 07:41
DX: Z53.21 Procedure and treatment not carried out due to patient leaving prior to being seen by health care provider (principal)
CPT/HCPCS: 99281-25

== ENCOUNTER 2017-02-25 01:36 | Observation (INO) | payer OTHER ==
[2017-02-25 02:30] VITALS: BMI 41.5
[2017-02-25] MEDS ORDERED: ACETAMINOPHEN 500 MG TABLET (FP) PO ONE (03:19)
--- NOTE | 2017-02-25 03:20 | PDOC ---
History of Present Illness - General Chief Complaint: Pain Stated Complaint: L LEG PAIN Time Seen by Provider: 02/25/17 03:12 History Source: Patient - History of Present Illness Initial Comments: 02/25/17 04:33 46 year old female c/o left knee pain now with numbness and tingling to left lower extremity. denies recent trauma/ injury, denies back pain, incontinence of bowel and urine. denies unilateral swelling. + smoker. 02/25/17 04:56 Past History - Past Medical History Allergies/Adverse Reactions: Allergies Allergy/AdvReac Type Severity Reaction Status Date / Time Penicillins Allergy Mild Hives Verified 02/25/17 02:18 Fish Containing Products Allergy Hives Verified 02/25/17 02:18 tomatoes Allergy Hives Uncoded 02/25/17 02:18 Home Medications: Ambulatory Orders Aripiprazole [Abilify -] 15 mg PO DAILY 09/18/11 Quetiapine Fumarate [Seroquel -] 200 mg PO HS 09/18/11 Budesonide/Formeterol Fumarate [SYMBICORT 80/4.5mcg -] 2 puff IH BID #1 inhaler 05/07/16 Albuterol 0.083% Nebulizer Abby [Ventolin 0.083% Nebulizer Soln -] 1 neb NEB Q4H #25 vial 10/29/16 Anemia: Yes (NO TREATMENT) Asthma: Yes (ON MDI) Cancer: No Cardiac Disorders: No CVA: No COPD: Yes CHF: No Dementia: No Diabetes: No GI Disorders: No Disorders: No HTN: No Hypercholesterolemia: No Kidney Stones: Yes (2013) Liver Disease: No Psychiatric Problems: Yes () Seizures: No Thyroid Disease: No - Surgical History Abdominal Surgery: Yes (Sx for twisted intestine in 2003) Appendectomy: No Cardiac Surgery: No Cholecystectomy: Yes (in 2003) Lung Surgery: No Neurologic Surgery: No Orthopedic Surgery: No - Reproductive History PID: No - Immunization History Immunization Up to Date: Yes - Suicide/Smoking/Psychosocial Hx Smoking History: Current every day smoker Have you smoked in the past 12 months: Yes Number of Cigarettes Smoked Daily: 10 Cigars Per Day: 0 Information on smoking cessation initiated: No 'Breaking Loose' booklet given: 07/08/16 Hx Alcohol Use: No Drug/Substance Use Hx: No Substance Use Type: Alcohol, Cocaine, Marijuana Hx Substance Use Treatment: Yes ([facility]-DETOX) Trauma Specific PMHX - Complaint Specific PMHX Arthritis: No Back Injury: No Neck Injury: No Hx Sacro Iliac Joint Dysfunction: No *Physical Exam - Vital Signs Last Vital Signs Temp Pulse Resp BP Pulse Ox 97.9 F 89 18 109/51 98 02/25/17 02:19 02/25/17 02:19 02/25/17 02:19 02/25/17 02:19 02/25/17 02:19 - Physical Exam General Appearance: Yes: Appropriately Dressed Respiratory/Chest: positive: Lungs Clear, Normal Breath Sounds Cardiovascular: positive: Regular Rhythm, Regular Rate Musculoskeletal: positive: Normal Inspection Extremity: positive: Normal Capillary Refill, Normal Inspection, Normal Range of Motion, Other. negative: Tender (+ pedal pulse), Pelvis Stable, Coldness, Cyanosis, Delayed Capillary Refill, Pedal Edema, Swelling, Calf Tenderness, Erythema, Inflammation ED Treatment Course - LABORATORY CBC & Chemistry Diagram: 02/25/17 09:02 02/25/17 09:02 Progress Note - Progress Note Progress Note: A: left knee pain P: xray pain control US Medical Decision Making - Medical Decision Making 02/25/17 06:[address] patient in ED OBS status. patient pending u/s r/o DVT *DC/Admit/Observation/Transfer Diagnosis at time of Disposition: Numbness and tingling of left lower extremity Knee pain, left Qualifiers: Chronicity: chronic Qualified Code(s): M25.562 - Pain in left knee - Discharge Dispostion Condition at time of disposition: Improved Admit: Yes - Referrals - Patient Instructions - Post Discharge Activity
[2017-02-25] MEDS ORDERED: ACETAMINOPHEN 325 MG TABLET (FP) ONE (03:39)
[2017-02-25] MEDS ORDERED: KETOROLAC TROMETHAMINE 30 MG/1 ML VIAL IM ONE (05:11)
[2017-02-25] MEDS ORDERED: KETOROLAC TROMETHAMINE 30 MG/1 ML VIAL ONE (05:35)
--- NOTE | 2017-02-25 07:14 | PDOC ---
*Physical Exam - Vital Signs Last Vital Signs Temp Pulse Resp BP Pulse Ox 97.9 F 85 16 110/63 98 02/25/17 02:19 02/25/17 06:48 02/25/17 06:48 02/25/17 06:48 02/25/17 06:48 - Physical Exam General Appearance: Yes: Appropriately Dressed, Obese, Other (Laying on exam bed , breathing easily). No: Apparent Distress Respiratory/Chest: positive: Lungs Clear, Normal Breath Sounds. negative: Chest Tender, Respiratory Distress, Accessory Muscle Use, Rhonchi, Stridor, Wheezing Cardiovascular: positive: Regular Rhythm, Regular Rate, S1, S2 (present). negative: Edema Musculoskeletal: positive: Other (TTP of the L knee medially and posteriorlly. Negative anterior/posterior draw, varus/valgus testing.) Extremity: positive: Normal Capillary Refill, Normal Inspection, Tender (Medial L knee tender to palpation.) Integumentary: positive: Normal Color, Dry, Warm Neurologic: positive: animal breeder II-XII NML intact, Fully Oriented, Alert, Normal Mood/ Affect, Normal Response, Motor Strength 5/5, Numbness (L medial knee.) ED Treatment Course - ADDITIONAL ORDERS Additional order review: Laboratory Results 02/25/17 04:20 Urine HCG, Qual Negative - Medications Given in the ED: ED Medications Discontinued Medications Generic Name Dose Route Start Last Admin Trade Name Yusuf PRN Reason Stop Dose Admin Acetaminophen 1,000 mg 02/25/17 03:19 02/25/17 03:42 Tylenol - PO 02/25/17 03:20 1,000 mg ONCE ONE Administration Ketorolac Tromethamine 30 mg 02/25/17 05:11 02/25/17 05:40 Toradol Injection - IM 02/25/17 05:12 30 mg ONCE ONE Administration Medical Decision Making - Medical Decision Making 02/25/17 07:13 Received sign out from Dorene Siddiqui CLAM DIGGER. Waiting on pt doppler to r/o DVT. Pt. is now ED short stay obs. Spoke with Dr. Jerez who will add a CBC, BMP< B12 and folate testing. 02/25/17 09:03 Pt. returned from [place]. C/o 8/10 pain. Pt states that she usually sees pain managment in the [place] for her symptoms; however, she just moved and has no follow up. Pt. states that she usually takes percocet for her pain. Will order one percocet at this time. *DC/Admit/Observation/Transfer Diagnosis at time of Disposition: Numbness and tingling of left lower extremity Knee pain, left Qualifiers: Chronicity: chronic Qualified Code(s): M25.562 - Pain in left knee - Discharge Dispostion Condition at time of disposition: Stable Admit: Yes - Referrals - Patient Instructions - Post Discharge Activity
--- NOTE | 2017-02-25 08:51 | HP ---
CHIEF COMPLAINT: " Left lower leg numbness and tingling" PCP: Dr. Daniel Phelps ([place]) HISTORY OF PRESENT ILLNESS: Patient is a 46 year old female presented to the ED with the chief complaint of " Left lower leg numbness and tingling" since 2 weeks. As per the patient, it started suddenly limiting her to do daily activities, was bedbound for two weeks. Was getting help from her son to go to the bathroom. Patient has had similar episodes in the past for which a vascular study was done on 05/06/16-negative for DVT. Denies chest pain, sob, cough, palpitation, abdominal pain, nausea or vomiting. Bowel/Bladder habit normal. Sleep/Appetite normal. Patient reports she has a h/o anemia for which she got a blood transfusion 3 months ago at [facility]. Her LMP was 02/11/17. She is not actively bleeding at this time. ER course was notable for: (1) Afebrile, hemodynamically stable (2) X-ray knee; X-ray of tibia/fibula (3) Tylenol and Ketorolac Recent Travel: None PAST MEDICAL HISTORY: Anemia, schizophrenia, polysubstance abuse, Fibroid uterus , Active smoker PAST SURGICAL HISTORY: Twisted intestine 2003; cholecystectomy in 2003 Social History: Smoking: Active smoker- 1/2 pack a day. Alcohol: Last intake 1 year ago, left after Detox at [facility]. Drugs: Last intake a year ago Cocaine; Marijuana Family History: Non contributory Allergies Penicillins Allergy (Mild, Verified 02/25/17 02:18) Hives Fish Containing Products Allergy (Verified 02/25/17 02:18) Hives tomatoes Allergy (Uncoded 02/25/17 02:18) Hives HOME MEDICATIONS: Home Medications Medication Instructions Recorded Aripiprazole [Abilify -] 15 mg PO DAILY 09/18/11 Quetiapine Fumarate [Seroquel -] 200 mg PO HS 09/18/11 Budesonide/Formeterol Fumarate 2 puff IH BID #1 inhaler 05/07/16 [SYMBICORT 80/4.5mcg -] Albuterol Sulfate [Proventil HFA 1 - 2 inh PO QID #1 inhaler 09/07/16 Inhaler -] Albuterol 0.083% Nebulizer Abby 1 neb NEB Q4H #25 vial 10/29/16 [Ventolin 0.083% Nebulizer Soln -] Albuterol Sulfate Inhaler - 2 puff IH Q4H PRN #1 inhaler 10/29/16 [Ventolin HFA Inhaler -] REVIEW OF SYSTEMS CONSTITUTIONAL: Absent: fever, chills, diaphoresis, generalized weakness, malaise, loss of appetite, weight change HEENT: Absent: rhinorrhea, nasal congestion, throat pain, throat swelling, difficulty swallowing, mouth swelling, ear pain, eye pain, visual changes CARDIOVASCULAR: Absent: chest pain, syncope, palpitations, irregular heart rate, lightheadedness , peripheral edema RESPIRATORY: Absent: cough, shortness of breath, dyspnea with exertion, orthopnea, wheezing, stridor, hemoptysis GASTROINTESTINAL: Absent: abdominal pain, abdominal distension, nausea, vomiting, diarrhea, constipation, melena, hematochezia GENITOURINARY: Absent: dysuria, frequency, urgency, hesitancy, hematuria, flank pain, genital pain MUSCULOSKELETAL: Present: left lower extremity numbness and tingling Absent: myalgia, arthralgia, joint swelling, back pain, neck pain SKIN: Absent: rash, itching, pallor HEMATOLOGIC/IMMUNOLOGIC: Absent: easy bleeding, easy bruising, lymphadenopathy, frequent infections ENDOCRINE: Absent: unexplained weight gain, unexplained weight loss, heat intolerance, cold intolerance NEUROLOGIC: Absent: headache, focal weakness or paresthesias, dizziness, unsteady gait, seizure, mental status changes, bladder or bowel incontinence PSYCHIATRIC: Absent: anxiety, depression, suicidal or homicidal ideation, hallucinations. PHYSICAL EXAMINATION Vital Signs - 24 hr 02/25/17 02/25/17 02:19 06:48 Temperature 97.9 F Pulse Rate 89 Pulse Rate [ 85 Right Apical] Respiratory 18 16 Rate Blood Pressure 109/51 Blood Pressure 110/63 [Right Arm] O2 Sat by Pulse 98 98 Oximetry (%) GENERAL: Patient is lying comfortably in bed. Awake, alert, and fully oriented, in no acute distress. HEAD: Normal with no signs of trauma. EYES: Pupils equal, round and reactive to light, extraocular movements intact, sclera anicteric, conjunctiva clear. No lid lag. EARS, NOSE, THROAT: Ears normal, nares patent, oropharynx clear without exudates. Moist mucous membranes. NECK: Normal range of motion, supple without lymphadenopathy, JVD, or masses. LUNGS: B/L Breath sounds equal, occasional wheezes and no crackles. No accessory muscle use. HEART: Regular rate and rhythm, normal S1 and S2 without murmur. ABDOMEN: Surgical scar logan +, Soft, nontender, not distended, normoactive bowel sounds, no guarding, no rebound, no masses. No hepatomegaly or splenomegaly. MUSCULOSKELETAL: Normal range of motion at all joints. No bony deformities or tenderness. No CVA tenderness. UPPER EXTREMITIES: 2+ pulses, warm, well-perfused. No cyanosis. No clubbing. No peripheral edema. RIGHT LOWER EXTREMITY: 2+ pulses, warm, well-perfused. No calf tenderness. No peripheral edema. LEFT LOWER EXTREMITY: Tender to touch in the left lower ext. 2+ pulses, warm, well-perfused. No peripheral edema. Limited ROM due to pain. NEUROLOGICAL: No facial droop. Cranial nerves II-XII intact. Normal speech. Gait not observed. PSYCHIATRIC: Cooperative. Good eye contact. Appropriate mood and affect. SKIN: Warm, dry, normal turgor, no rashes or lesions noted, normal capillary refill. Laboratory Results - last 24 hr 02/25/17 04:20 Urine HCG, Qual Negative ASSESSMENT/PLAN: Patient is a 46 year old female with significant past medical history of Anemia , schizophrenia, polysubstance abuse presented to the ED with the chief complaint of " Left lower leg numbness and tingling" admitted to r/o DVT. # Left lower leg numbness and tingling-r/o DVT c/o since 2 weeks, similar episode in the past, vascular study done in showed negative for DVT It could also be due to h/o alcohol intake (vitamin def), neuropathy Admitted in Med-surg/Obs BMP ordered to r/o electrolyte imbalance causing her symptoms Doppler of the left lower ext to r/o DVT Folate and Vitamin B12 ordered to r/o Sandra min Def # Microcytic anemia Likely secondary to bleeding due to Fibroid H/H 8.528.7 Would suggest patient to follow up as outpatient for further evaluation of anemia. # Polysubstance abuse U. tox pending # Schizophrenia Aripiprazole 15mg PO daily Seroquel 200mg PO HS # FEN NOt on IV fluids, tolerating PO Electrolyes pending Regular diet # Prophylaxis For DVT: Ambulating, waiting for [facility] report For GI: Not indicated # Code Status: Full Code # Dispo: Admitted in Med-Surg/Obs. Possible discharge if DVT is ruled out. Illness, Investigation and Plan of care explained to the patient. She verbalized understanding. Case discussed with Dr. Hansen. Visit type - Emergency Visit Emergency Visit: Yes ED Registration Date: 02/25/17 Care time: The patient presented to the Emergency Department on the above date and was hospitalized for further evaluation of their emergent condition. - New Patient This patient is new to me today: Yes Date on this admission: 02/25/17 - Critical Care Critical Care patient: No
--- NOTE | 2017-02-25 09:22 | PN ---
Teaching Attending Note Name of Resident: Aylin Jerez ATTENDING PHYSICIAN STATEMENT I saw and evaluated the patient. I reviewed the resident's note and discussed the case with the resident. I agree with the resident's findings and plan as documented. SUBJECTIVE: OBJECTIVE: Vital Signs Period Temp Pulse Resp BP Sys/Herrera Pulse Ox Last 24 Hr 97.9 F 85-89 16-18 109-110/51-63 98-98 Laboratory Tests 02/25/17 04:20 Urine HCG, Qual Negative Home Medications Medication Instructions Recorded Aripiprazole [Abilify -] 15 mg PO DAILY 09/18/11 Quetiapine Fumarate [Seroquel -] 200 mg PO HS 09/18/11 Budesonide/Formeterol Fumarate 2 puff IH BID #1 inhaler 05/07/16 [SYMBICORT 80/4.5mcg -] Albuterol Sulfate [Proventil HFA 1 - 2 inh PO QID #1 inhaler 09/07/16 Inhaler -] Albuterol 0.083% Nebulizer Abby 1 neb NEB Q4H #25 vial 10/29/16 [Ventolin 0.083% Nebulizer Soln -] Albuterol Sulfate Inhaler - 2 puff IH Q4H PRN #1 inhaler 10/29/16 [Ventolin HFA Inhaler -] ASSESSMENT AND PLAN:
[2017-02-25 09:36] LABS: HEMATOCRIT 28.7 % (32.4-45.2); HEMOGLOBIN 8.5 GM/dL (10.7-15.3); MCHC 29.5 g/dl (32.0-36.0); MEAN CELL VOLUME 59.8 fl (80-96); MEAN PLT VOLUME 8.5 fl (7.5-11.1); PLATELET COUNT 287 K/MM3 (134-434); RDW 22.2 % (11.6-15.6); WHITE BLOOD COUNT 4.1 K/mm3 (4.0-10.0)
[2017-02-25 09:40] LABS: MCH 17.7 pg (25.7-33.7)
[2017-02-25 09:56] VITALS: TEMP 98.1
[2017-02-25 10:11] LABS: ANION GAP 6 (8-16); BLOOD UREA NITROGEN 8 mg/dL (7-18); CALCIUM 8.3 mg/dL (8.5-10.1); CHLORIDE 108 mmol/L (98-107); CO2 27 mmol/L (21-32); CREATININE 0.7 mg/dL (0.55-1.02); GLUCOSE,RANDOM 81 mg/dL (74-106); POTASSIUM 4.3 mmol/L (3.5-5.1); SODIUM 141 mmol/L (136-145)
[2017-02-25] MEDS ORDERED: ALBUTEROL SO4 0.083% IH SOL 2.5 MG/3 ML VIAL.NEB. NEB PRN (10:17)
--- NOTE | 2017-02-25 10:28 | DS ---
Physical Exam: SUBJECTIVE: Patient seen and examined at bed side this morning. Feels better after she took the pain medication. Denies chest pain, sob, cough, palpitation, abdominal pain, nausea or vomiting. OBJECTIVE: Vital Signs Period Temp Pulse Resp BP Sys/Herrera Pulse Ox Last 24 Hr 97.9 F-98.1 F 79-89 16-18 108-110/51-68 98-100 PHYSICAL EXAM GENERAL: Patient is lying comfortably in bed. Awake, alert, and fully oriented, in no acute distress. HEAD: Normal with no signs of trauma. EYES: Pupils equal, round and reactive to light, extraocular movements intact, sclera anicteric, conjunctiva clear. No lid lag. EARS, NOSE, THROAT: Ears normal, nares patent, oropharynx clear without exudates. Moist mucous membranes. NECK: Normal range of motion, supple without lymphadenopathy, JVD, or masses. LUNGS: B/L Breath sounds equal, occasional wheezes and no crackles. No accessory muscle use. HEART: Regular rate and rhythm, normal S1 and S2 without murmur. ABDOMEN: Surgical scar logan +, Soft, nontender, not distended, normoactive bowel sounds, no guarding, no rebound, no masses. No hepatomegaly or splenomegaly. MUSCULOSKELETAL: Normal range of motion at all joints. No bony deformities or tenderness. No CVA tenderness. UPPER EXTREMITIES: 2+ pulses, warm, well-perfused. No cyanosis. No clubbing. No peripheral edema. RIGHT LOWER EXTREMITY: 2+ pulses, warm, well-perfused. No calf tenderness. No peripheral edema. LEFT LOWER EXTREMITY: Tender to touch in the left lower ext. 2+ pulses, warm, well-perfused. No peripheral edema. Limited ROM due to pain. NEUROLOGICAL: No facial droop. Cranial nerves II-XII intact. Normal speech. Gait not observed. PSYCHIATRIC: Cooperative. Good eye contact. Appropriate mood and affect. SKIN: Warm, dry, normal turgor, no rashes or lesions noted, normal capillary refill. LABS Laboratory Results - last 24 hr 02/25/17 02/25/17 02/25/17 04:20 09:02 09:02 WBC 4.1 RBC 4.80 Hgb 8.5 L Hct 28.7 L MCV 59.8 L MCH 17.7 L MCHC 29.5 L RDW 22.2 H Plt Count 287 D MPV 8.5 Sodium 141 Potassium 4.3 Chloride 108 H Carbon Dioxide 27 Anion Gap 6 L BUN 8 D Creatinine 0.7 D Random Glucose 81 Calcium 8.3 L Serum Folate 19 H Urine HCG, Qual Negative HOSPITAL COURSE: Date of Admission:02/25/17 Date of Discharge: 02/25/17 Patient is a 46 year old female with significant past medical history of Anemia , schizophrenia, polysubstance abuse presented to the ED with the chief complaint of " Left lower leg numbness and tingling" x 2 weeks admitted to r/o DVT. As per the patient, it started suddenly limiting her to do daily activities , was bed bound for two weeks. Was getting help from her son to go to the bathroom. Patient has had similar episodes in the past for which a vascular study was done on 05/06/16-negative for DVT. Doppler of left lower extremity was negative for DVT. Labs didn't show any electrolyte imbalance. Patient is afebrile, hemodynamically stable, pain improved with Tyelnol and Ketorolac and is stable for discharge. Patient has been recommended to follow up with PCP in a week and referred to a pain management. She also needs an outpatient evaluation of anemia. H/H was 8.5/28.7 likely due to bleeding from fibroid. No active bleeding at this time. Plan of care explained to the patient. She verbalized understanding. Case discussed with Dr. Hansen. Minutes to complete discharge: 45 Discharge Summary Reason For Visit: LEFT KNEE PAIN,NUMBNESS AND TINGLING OF LFT L EXTR Current Active Problems Knee pain, left (Acute) Numbness and tingling of left lower extremity (Acute) Condition: Improved - Instructions Diet, Activity, Other Instructions: You were admitted for evaluation of left lower extremity numbness and tingling. Doppler USG of the left leg showed there are no clots. Please follow up with your primary physician in a week. You have been referred to a pain management physician, Dr. Juan Francisco Tirado. You also need further evaluation of anemia as outpatient. If your symptoms don't improve or its getting worse, please visit the Emergency Department immediately. Referrals: Juan Francisco Tirado MD [Staff Physician] - 1 Week Disposition: HOME - Home Medications Comprehensive Discharge Medication List: Ambulatory Orders Aripiprazole [Abilify -] 15 mg PO DAILY 09/18/11 Quetiapine Fumarate [Seroquel -] 200 mg PO HS 09/18/11 Budesonide/Formeterol Fumarate [SYMBICORT 80/4.5mcg -] 2 puff IH BID #1 inhaler 05/07/16 Albuterol Sulfate [Proventil HFA Inhaler -] 1 - 2 inh PO QID #1 inhaler Albuterol 0.083% Nebulizer Abby [Ventolin 0.083% Nebulizer Soln -] 1 neb NEB Q4H #25 vial 10/29/16 Albuterol Sulfate Inhaler - [Ventolin HFA Inhaler -] 2 puff IH Q4H PRN #1 inhaler 10/29/16 This patient is new to me today: Yes Date on this admission: 02/27/17 Emergency Visit: Yes ED Registration Date: 02/27/17 Care time: The patient presented to the Emergency Department on the above date and was hospitalized for further evaluation of their emergent condition. Critical Care patient: No - Discharge Referral Referred to [facility] No Physician Referral: Zaheer Worrell MD ([facility])
[2017-02-25] MEDS ORDERED: ALBUTEROL SO4 0.083% IH SOL 2.5 MG/3 ML VIAL.NEB. NEB ONE ×2 (11:14→11:36)
[2017-02-25 11:55] VITALS: BP 116/82; PULSE 80
== END 2017-02-25 12:30 | disposition home or self-care (01) ==
LOC: JER 01:36 → JERBED 06:17
PROVIDERS: ADMIT Internal Medicine; ATTEND Internal Medicine
PROC: 3E0233Z Introduction of Anti-inflammatory into Muscle, Percutaneous Approach (ICD-10-PCS; principal; 2017-02-25)
PROC: 3E0F7GC Introduction of Other Therapeutic Substance into Respiratory Tract, Via Natural or Artificial Opening (ICD-10-PCS; 2017-02-25)
DX: R20.0 Anesthesia of skin (principal); R20.2 Paresthesia of skin; M25.562 Pain in left knee; E66.9 Obesity, unspecified; Z68.41 Body mass index [BMI] 40.0-44.9, adult; D50.9 Iron deficiency anemia, unspecified; F20.9 Schizophrenia, unspecified; F19.10 Other psychoactive substance abuse, uncomplicated; J45.909 Unspecified asthma, uncomplicated; J44.9 Chronic obstructive pulmonary disease, unspecified; F17.210 Nicotine dependence, cigarettes, uncomplicated; Z91.013 Allergy to seafood; Z88.6 Allergy status to analgesic agent
CPT/HCPCS: 36415; 73562-TC-LT; 73590-TC-LT; 80048; 82607; 82746; 83735; 84703; 85027; 93971-TC; 94640; 96372; 99281-25; G0378

== ENCOUNTER 2017-04-30 07:20 | Emergency (ER) | payer OTHER ==
[2017-04-30] MEDS ORDERED: ALBUTEROL SO4 2.5/IPRATROPIUM 0.5 INH SOL 3 ML VIAL.NEB. NEB ONE ×3 (07:24→08:45)
--- NOTE | 2017-04-30 07:39 | PDOC ---
History of Present Illness - General History Source: Patient Exam Limitations: No Limitations - History of Present Illness Initial Comments: 04/30/17 08:46 The patient is a 46 year old female, with a significant past medical history of colethitis, schizophrenia, COPD, and asthma, who presents to the emergency department with SOB and wheezing for 2 days. The patient reports yesterday going to [facility] ER where she had negative chest x-ray and two albuterol treatments. She reports since being discharged from [facility] having little to no relief of her symptoms. She arrives today with c/os of a dry cough, wheezing, and chest tightness. She notes having also subjective complaints of fever and chills. She denies recent headache or dizziness. She denies recent nausea, vomit, diarrhea or constipation. She denies recent dysuria, frequency, urgency or hematuria. Allergies: PCN Past surgical history: None reported. Social history: Multiple toxic habits, current smoker. <Terence Landon - Last Filed: 04/30/17 09:12> <Good Banuelos - Last Filed: 04/30/17 14:45> - General Chief Complaint: Asthma Stated Complaint: SOB Time Seen by Provider: 04/30/17 07:38 Past History <Terence Landon - Last Filed: 04/30/17 09:12> - Past Medical History Anemia: Yes (NO TREATMENT) Asthma: Yes (ON MDI) Cancer: No Cardiac Disorders: No CVA: No COPD: Yes CHF: No Dementia: No Diabetes: No GI Disorders: No Disorders: No HTN: No Hypercholesterolemia: No Kidney Stones: Yes (2013) Liver Disease: No Psychiatric Problems: Yes (schiz) Seizures: No Thyroid Disease: No - Surgical History Abdominal Surgery: Yes (Sx for twisted intestine in 2003) Appendectomy: No Cardiac Surgery: No Cholecystectomy: Yes (in 2003) Lung Surgery: No Neurologic Surgery: No Orthopedic Surgery: No - Reproductive History PID: No - Immunization History Immunization Up to Date: Yes - Suicide/Smoking/Psychosocial Hx Smoking History: Current every day smoker Have you smoked in the past 12 months: Yes Number of Cigarettes Smoked Daily: 10 Cigars Per Day: 0 'Breaking Loose' booklet given: 07/08/16 Hx Alcohol Use: No Drug/Substance Use Hx: No Substance Use Type: Alcohol, Cocaine, Marijuana Hx Substance Use Treatment: Yes ([facility]) <Good Banuelos - Last Filed: 04/30/17 14:45> - Past Medical History Allergies/Adverse Reactions: Allergies Allergy/AdvReac Type Severity Reaction Status Date / Time Penicillins Allergy Mild Hives Verified 04/30/17 07:40 Fish Containing Products Allergy Hives Verified 04/30/17 07:40 tomatoes Allergy Hives Uncoded 04/30/17 07:40 Home Medications: Ambulatory Orders Aripiprazole [Abilify -] 15 mg PO DAILY 09/18/11 Quetiapine Fumarate [Seroquel -] 200 mg PO HS 09/18/11 Budesonide/Formeterol Fumarate [SYMBICORT 80/4.5mcg -] 2 puff IH BID #1 inhaler 05/07/16 Albuterol 0.083% Nebulizer Abby [Ventolin 0.083% Nebulizer Soln -] 1 neb NEB Q4H #25 vial 10/29/16 Respiratory Specific PMHX - Complaint Specific PMHX TB (Tuberculosis): No <Good Banuelos - Last Filed: 04/30/17 14:45> Review of Systems - Review of Systems Comments:: 04/30/17 08:46 CONSTITUTIONAL: No fever, no chills, no fatigue EYES: No visual changes ENT: No ear pain, no sore throat CARDIOVASCULAR: No chest pain, no palpitations RESPIRATORY: +SOB and cough GI: No abdominal pain, no nausea, no vomiting, no constipation, no diarrhea GENITOURINARY: No dysuria, no frequency, no hematuria MUSKULOSKELETAL: No backpain, no joint pain, no myalgias SKIN: No rash NEURO: No headache <Terence Landon - Last Filed: 04/30/17 09:12> *Physical Exam - Vital Signs Last Vital Signs Temp Pulse Resp BP Pulse Ox 99.6 F 87 19 112/62 98 04/30/17 07:37 04/30/17 07:37 04/30/17 07:37 04/30/17 07:37 04/30/17 07:53 - Physical Exam Comments: 04/30/17 08:46 CONSTITUTIONAL: Well-appearing; Obese; in no apparent distress HEAD: Normocephalic; atraumatic EYES: PERRL; EOM intact ENMT: External appears normal; normal oropharynx NECK: Supple; non-tender; no cervical lymphadenopathy CARD: Normal S1, S2; no murmurs, rubs, or gallops RESP: Normal chest excursion with respiration;Diffuse rhonchi. ABD: Soft, non-distended; non-tender; no palpable organomegaly, no palpable hernias EXT: Normal ROM in all four extremities; non-tender to palpation; distal pulses intact SKIN: Warm, dry, no rash NEURO: No focal neurological deficiencies. <Terence Landon - Last Filed: 04/30/17 09:12> ED Treatment Course - LABORATORY CBC & Chemistry Diagram: 04/30/17 09:29 04/30/17 09:30 <Good Banuelos - Last Filed: 04/30/17 14:45> Medical Decision Making - Medical Decision Making 04/30/17 09:34 Patient is a 46-year-old female with history of asthma/COPD, schizophrenia who presents with signs and symptoms of mild to moderate asthma exacerbation. In the ER, patient is afebrile, normotensive with oxygen saturation of 98-100% room air. Physical exam reveals an obese female with diffuse rhonchi and minimal and expiratory wheezing bilaterally. There is no accessory muscle use and there are no retractions. We will administer Combivent therapy, prednisone and magnesium sulfate. Will reassess. 03 14:41 Patient noted to be sleeping peacefully without any symptoms. Upon awakening, patient appears to intentionally produce wheezing due to respiratory effort. Patient wishes to stay in the hospital although there is no medically justifiable reason for admission. I suspect secondary gain. Auscultation reveals no adventitious lung sounds. Oxygen saturation is 99% room air. Will discharge. Patient already has outpatient prednisone. 03 14:41 Patient's EKG shows prolonged QTC. Potassium is noted to be 4.6. Patient received 2 g of magnesium sulfate. Will discharge. <Good Banuelos - Last Filed: 04/30/17 14:45> *DC/Admit/Observation/Transfer - Attestations Scribe Attestion: 04/30/17 08:46 Documentation prepared by Terence Landon, acting as medical transport specialist for Good Banuelos MD. <Terence Landon - Last Filed: 04/30/17 09:12> - Attestations Physician Attestion: 04/30/17 09:33 The documentation was prepared by the scribe under my direct supervision. I have reviewed the documentation which correctly represents the findings, medical decision-making and critical action taken by me. <Good Banuelos - Last Filed: 04/30/17 14:45> Diagnosis at time of Disposition: Acute asthma exacerbation Qualifiers: Asthma severity: mild Asthma persistence: unspecified Qualified Code(s): J45.901 - Unspecified asthma with (acute) exacerbation - Discharge Dispostion Disposition: HOME Condition at time of disposition: Stable - Referrals Referrals: Mack Ashraf MD [Staff Physician] - - Patient Instructions Printed Discharge Instructions: Asthma -- Adult
[2017-04-30 07:40] VITALS: BMI 37.4
[2017-04-30] MEDS ORDERED: predniSONE 20 MG TABLET (UD) PO ONE (08:35)
[2017-04-30] MEDS ORDERED: predniSONE 20 MG TABLET (UD) ONE (08:45)
[2017-04-30] MEDS ORDERED: MAGNESIUM SULF 50% (8.12 MEQ/2 ML-1 GM VIAL) IVPB ONE (09:29)
[2017-04-30] MEDS ORDERED: MAGNESIUM SULF 50% (8.12 MEQ/2 ML-1 GM VIAL) ONE (09:32)
[2017-04-30 09:47] LABS: BASO % 0.3 % (0-2.0); HEMATOCRIT 25.3 % (32.4-45.2); HEMOGLOBIN 8.1 GM/dL (10.7-15.3); LYMPH % 24.5 % (8-40); MCHC 31.8 g/dl (32.0-36.0); MEAN CELL VOLUME 59.4 fl (80-96); MEAN PLT VOLUME 9.2 fl (7.5-11.1); MONO % 17.3 % (3.8-10.2); NEUT % 56.9 % (42.8-82.8); PLATELET COUNT 276 K/MM3 (134-434); RBC 4.26 M/mm3 (3.60-5.2); RDW 22.2 % (11.6-15.6); WHITE BLOOD COUNT 3.9 K/mm3 (4.0-10.0)
[2017-04-30 09:48] LABS: MCH 18.9 pg (25.7-33.7)
[2017-04-30 10:10] LABS: ALBUMIN 3.4 g/dl (3.4-5.0); ANION GAP 10 (8-16); BILIRUBIN,TOTAL 0.2 mg/dL (0.2-1.0); BLOOD UREA NITROGEN 8 mg/dL (7-18); CALCIUM 8.3 mg/dL (8.5-10.1); CHLORIDE 108 mmol/L (98-107); CO2 22 mmol/L (21-32); CREATININE 0.6 mg/dL (0.55-1.02); GLUCOSE,RANDOM 92 mg/dL (74-106); SGPT/ALT 46 U/L (12-78); SODIUM 140 mmol/L (136-145); TOT PROT 6.8 g/dl (6.4-8.2)
[2017-04-30 10:11] LABS: ALK PHOS 65 U/L (45-117)
[2017-04-30 10:48] LABS: POTASSIUM 4.6 mmol/L (3.5-5.1); SGOT/AST 38 U/L (15-37)
[2017-04-30] MEDS ORDERED: ALBUTEROL SO4 0.083% IH SOL 2.5 MG/3 ML VIAL.NEB. NEB ONE (12:20)
[2017-04-30 15:03] LABS: MAGNESIUM 2.1 mg/dL (1.8-2.4)
[2017-04-30 15:06] VITALS: BP 118/71; PULSE 81; TEMP 98.1
--- NOTE | 2017-05-07 01:11 | EKG ---
Test Reason : Blood Pressure : / mmHG Vent. Rate : 090 BPM Atrial Rate : 090 BPM P-R Int : 170 ms QRS Dur : 096 ms QT Int : 414 ms P-R-T Axes : 059 003 027 degrees QTc Int : 506 ms NORMAL SINUS RHYTHM PROLONGED QT ABNORMAL ECG WHEN COMPARED WITH ECG OF 08-JUL-2016 09:36, NONSPECIFIC T WAVE ABNORMALITY NOW EVIDENT IN ANTERIOR LEADS Confirmed by POLLO ROSA, SHANON ([id number]) on 05/07/2017 1:11:32 AM Referred By: Confirmed By:SHANON ABAD MD
== END 2017-04-30 15:06 | disposition home or self-care (01) ==
LOC: JER 07:20
PROC: 3E0F7GC Introduction of Other Therapeutic Substance into Respiratory Tract, Via Natural or Artificial Opening (ICD-10-PCS; principal; 2017-04-30)
PROC: 3E033GC Introduction of Other Therapeutic Substance into Peripheral Vein, Percutaneous Approach (ICD-10-PCS; 2017-04-30)
DX: J45.901 Unspecified asthma with (acute) exacerbation (principal)
CPT/HCPCS: 36415; 80053; 83735; 84703; 85025; 93005; 93010; 94640; 96374; 96375; 99283-25

== ENCOUNTER 2017-11-20 10:49 | Emergency (ER) | payer OTHER ==
[2017-11-20 11:10] VITALS: TEMP 98.5; BMI 33.3
--- NOTE | 2017-11-20 12:00 | PDOC ---
History of Present Illness - General Chief Complaint: Asthma Stated Complaint: ASTHMA - History of Present Illness Initial Comments: The patient is a 47F w/ a history of COPD/asthma and schizophrenia who presents for 1d of worsening shortness of breath and chest tightness with associated chills. The patient has symbicort and albuterol at home which she has been using with minimal relief. She reports needing treatment for COPD exacerbations in the past. She denies fevers, chest pain, abdominal pain, N/V/C/D, or changes in sensation. She reports changing PCP's recently and does not recall her doctor's name at this time. 11/20/17 12:10 Past History - Past Medical History Allergies/Adverse Reactions: Allergies Allergy/AdvReac Type Severity Reaction Status Date / Time Penicillins Allergy Mild Hives Verified 11/20/17 11:10 Fish Containing Products Allergy Hives Verified 11/20/17 11:10 tomatoes Allergy Hives Uncoded 11/20/17 11:10 Home Medications: Ambulatory Orders Aripiprazole [Abilify -] 15 mg PO DAILY 09/18/11 Quetiapine Fumarate [Seroquel -] 200 mg PO HS 09/18/11 Budesonide/Formeterol Fumarate [SYMBICORT 80/4.5mcg -] 2 puff IH BID #1 inhaler 05/07/16 Albuterol 0.083% Nebulizer Abby [Ventolin 0.083% Nebulizer Soln -] 1 neb NEB Q4H #25 vial 10/29/16 Albuterol Sulfate Inhaler - [Ventolin HFA Inhaler -] 1 - 2 inh PO Q4H #1 inhaler 04/30/17 Prednisone [Deltasone] 40 mg PO DAILY 4 Days #8 tablet 11/20/17 Anemia: Yes (NO TREATMENT) Asthma: Yes (ON MDI) Cancer: No Cardiac Disorders: No CVA: No COPD: Yes CHF: No Dementia: No Diabetes: No GI Disorders: No Disorders: No HTN: No Hypercholesterolemia: No Kidney Stones: Yes (2013) Liver Disease: No Psychiatric Problems: Yes () Seizures: No Thyroid Disease: No - Surgical History Abdominal Surgery: Yes (Sx for twisted intestine in 2003) Appendectomy: No Cardiac Surgery: No Cholecystectomy: Yes (in 2003) Lung Surgery: No Neurologic Surgery: No Orthopedic Surgery: No - Reproductive History PID: No - Immunization History Immunization Up to Date: Yes - Suicide/Smoking/Psychosocial Hx Smoking History: Never smoked Have you smoked in the past 12 months: Yes Number of Cigarettes Smoked Daily: 10 Cigars Per Day: 0 Information on smoking cessation initiated: No 'Breaking Loose' booklet given: 07/08/16 Hx Alcohol Use: No Drug/Substance Use Hx: No Substance Use Type: Alcohol, Cocaine, Marijuana Hx Substance Use Treatment: Yes ([facility]) Review of Systems - Review of Systems Able to Perform ROS?: Yes Comments:: GENERAL/CONSTITUTIONAL: +chills; No fever. No weakness HEAD, EYES, EARS, NOSE AND THROAT: No change in vision. No ear pain or discharge. No sore throat CARDIOVASCULAR: No chest pain RESPIRATORY: +wheeze; No cough GASTROINTESTINAL: No nausea, vomiting, diarrhea or constipation GENITOURINARY: No dysuria, frequency, or change in urination MUSCULOSKELETAL: No joint or muscle swelling or pain. No neck or back pain SKIN: No rash NEUROLOGIC: Denies vertigo, loss of consciousness, or change in strength/ sensation. ENDOCRINE: No increased thirst. No abnormal weight change HEMATOLOGIC/LYMPHATIC: No anemia, easy bleeding, or history of blood clots ALLERGIC/IMMUNOLOGIC: No hives or skin allergy 11/20/17 12:23 Is the patient limited [place] proficient: No *Physical Exam - Vital Signs Last Vital Signs Temp Pulse Resp BP Pulse Ox 98.5 F 91 H 16 133/69 95 11/20/17 10:59 11/20/17 10:59 11/20/17 10:59 11/20/17 10:59 11/20/17 10:59 - Physical Exam Comments: GENERAL: Awake, alert, and fully oriented, in no acute distress HEAD: No signs of trauma, normocephalic, atraumatic EYES: PERRL, EOMI, sclera anicteric, conjunctiva clear ENT: Hearing grossly normal, nares patent, oropharynx clear without exudates. Moist mucosa NECK: Normal ROM, supple LUNGS: No distress, speaks full sentences, diffuse b/l rhonchi w/ mild crackles at the bases HEART:Regular rate and rhythm, normal S1 and S2, no murmurs appreciated, peripheral pulses normal and equal bilaterally ABDOMEN: Soft, protuberant, non-distended, mild epigastric/RUQ ttp that the patient had not noticed before, normoactive bowel sounds. No guarding, no rebound. EXTREMITIES : Normal inspection, Normal range of motion, no edema. No clubbing or cyanosis NEUROLOGICAL: Cranial nerves II through XII grossly intact. Normal speech, no focal sensorimotor deficits SKIN: Warm, Dry, normal turgor, no rashes or lesions noted 11/20/17 12:24 Medical Decision Making - Medical Decision Making The patient is a 47F w/ a history of COPD/asthma and schizophrenia who presents w/ 1d of worsening shortness of breath, chest tightness, and mild chills Ddx: Asthma/COPD exacerbation v PNA v URI ED Course Duo-neb x3 Prednisone 40mg PO once CXR Tylenol 975mg PO once for headache Patient saturating 100% on room air, w/o tachypnia; HR 86 11/20/17 12:27 Breathing improved s/p nebs x3 and steroids Patient reports continued chest tightness Mild basilar wheezes heard on exam, otherwise no increased work of breathing or signs of distress Patient breathing comfortably in bed; patient sleeping in bed Rx for 4 days of Prednisone 40mg PO daily for 4 days sent to the pharmacy that the patient specified Plan for discharge w/ PCP f/u Return precautions given Plan discussed with patient who is in agreement and verbalized understanding Dispo: Home 11/20/17 14:23 *DC/Admit/Observation/Transfer Diagnosis at time of Disposition: Asthma Qualifiers: Asthma severity: unspecified severity Asthma persistence: persistent Asthma complication type: with acute exacerbation Qualified Code(s): J45.901 - Unspecified asthma with (acute) exacerbation COPD (chronic obstructive pulmonary disease) Qualifiers: COPD type: unspecified COPD Qualified Code(s): J44.9 - Chronic obstructive pulmonary disease, unspecified - Discharge Dispostion Disposition: HOME Condition at time of disposition: Improved Decision to Admit order: No - Prescriptions Prescriptions: Prednisone [Deltasone] 40 mg PO DAILY 4 Days #8 tablet - Referrals Referrals: [facility] [place] [Provider Group] - Patient Instructions Printed Discharge Instructions: Asthma -- Adult Additional Instructions: You were seen in the Emergency Department today for a COPD exacerbation. Please review the handouts provided at discharge. Please follow up with your primary care physician within the next 1-3 days. A prescription for steroids was sent to the pharmacy that you specified. Take as directed. Return to the Emergency Department if you develop worsening shortness of breath, fevers, or any new/ concerning symptoms. - Post Discharge Activity
[2017-11-20] MEDS ORDERED: ALBUTEROL SO4 2.5/IPRATROPIUM 0.5 INH SOL 3 ML VIAL.NEB. NEB ONE ×3 (12:09→12:15)
[2017-11-20] MEDS ORDERED: predniSONE 20 MG TABLET (UD) PO ONE (12:09)
[2017-11-20] MEDS ORDERED: predniSONE 20 MG TABLET (UD) ONE (12:15)
[2017-11-20] MEDS ORDERED: ACETAMINOPHEN 325 MG TABLET (FP) PO ONE (12:21)
[2017-11-20] MEDS ORDERED: ACETAMINOPHEN 325 MG TABLET (FP) ONE (12:26)
[2017-11-20 14:53] VITALS: BP 108/66; PULSE 77
--- NOTE | 2017-11-20 15:08 | PDOC ---
Attending Attestation - HPI HPI: 11/20/17 15:10 The patient is a 47 year old female with a significant past medical history of COPD/asthma and schizophrenia who presents to the ER with one day history of shortness of breath with chest tightness. Patient used symbicort and albuterol at home with minimal improvement of her symptoms. Patient reports COPD exacerbations in the past and states her symptoms today are similar. The patient denies chest pain, headache, and dizziness. Denies fever, chills, nausea, vomit, diarrhea, and constipation. Denies dysuria, frequency, urgency, and hematuria. Allergies: NKA Past surgical history: None reported. Social history: No reported alcohol or drug use. Current smoker. - Physicial Exam PE: 11/20/17 15:10 Adult Physical Exam Vitals: Triage vital signs reviewed General Appearance: No acute distress, well nourished, well developed Head: Atraumatic Cardiac: Regular rate and rhythm, no murmurs, no rubs, no gallops Lungs: (+) Diffuse rhonchi with mild crackles at the bases. Abdomen: Soft, nondistended, normal bowel sounds, nontender to palpation Extremities: Full range of motion to all extremities, no cyanosis, clubbing, or edema Skin: Warm and dry, no rashes or lesions, no rash, no petechiae Neuro: AOX3; Cranial Nerves 2-12 grossly intact, Strength intact to all extremities, Sensation intact to all extremities, gait normal Psych: Normal mood, normal affect <Kelly Palafox - Last Filed: 11/20/17 15:10> - Resident Resident Name: Ector Thomas - ED Attending Attestation I have performed the following: I have examined & evaluated the patient, The case was reviewed & discussed with the resident, I agree w/resident's findings & plan, Exceptions are as noted - Medical Decision Making 11/20/17 16:08 47 y/o hx of asthma p/w asthma exacerbation no primary care follow-up took her home medications with no significant improvement here in the emergency Department received 3 DuoNeb's and prednisone Reevaluation breezing improved patient provided with follow-up tomorrow for a clinic. Patient will be discharged with four-day course of prednisone. Findings, need for follow-up, strict return instructions discussed with patient. <James Hoskins - Last Filed: 11/20/17 16:11>
== END 2017-11-20 15:13 | disposition home or self-care (01) ==
LOC: JER 10:49
PROC: 3E0F7GC Introduction of Other Therapeutic Substance into Respiratory Tract, Via Natural or Artificial Opening (ICD-10-PCS; principal; 2017-11-20)
PROC: 3E0F7GC Introduction of Other Therapeutic Substance into Respiratory Tract, Via Natural or Artificial Opening (ICD-10-PCS; 2017-11-20)
DX: J44.9 Chronic obstructive pulmonary disease, unspecified (principal); F20.9 Schizophrenia, unspecified; Z88.0 Allergy status to penicillin; Z91.013 Allergy to seafood
CPT/HCPCS: 71046-TC-FY; 99282-25; J7620

== ENCOUNTER 2017-12-08 08:17 | Inpatient (IN) | payer OTHER ==
[2017-12-08] MEDS ORDERED: ALBUTEROL SO4 2.5/IPRATROPIUM 0.5 INH SOL 3 ML VIAL.NEB. NEB ONE ×6 (08:48→12:05)
[2017-12-08] MEDS ORDERED: MAGNESIUM SULF 50% (8.12 MEQ/2 ML-1 GM VIAL) IVPB ONE (08:56)
[2017-12-08] MEDS ORDERED: MAGNESIUM 1GM/D5W - 2 GM/200 ML IVPB IVPB ONE (09:05)
[2017-12-08 09:28] LABS: BASO % 0.6 % (0-2.0); EOS % 14.2 % (0-4.5); HEMATOCRIT 33.9 % (32.4-45.2); HEMOGLOBIN 10.5 GM/dL (10.7-15.3); LYMPH % 31.8 % (8-40); MCH 21.2 pg (25.7-33.7); MCHC 31.1 g/dl (32.0-36.0); MEAN CELL VOLUME 68.3 fl (80-96); MEAN PLT VOLUME 8.8 fl (7.5-11.1); NEUT % 45.4 % (42.8-82.8); PLATELET COUNT 313 K/MM3 (134-434); RBC 4.96 M/mm3 (3.60-5.2); RDW 23.4 % (11.6-15.6); WHITE BLOOD COUNT 5.9 K/mm3 (4.0-10.0)
[2017-12-08 09:30] LABS: VENOUS PC02 40.2 mmHg (38-52); VENOUS PH 7.44 (7.32-7.42); VENOUS PO2 14.7 mmHg (28-48)
--- NOTE | 2017-12-08 09:43 | PDOC ---
History of Present Illness - General Chief Complaint: Shortness of Breath Stated Complaint: COPD Time Seen by Provider: 12/08/17 08:21 History Source: Patient Exam Limitations: No Limitations - History of Present Illness Initial Comments: 12/08/17 09:37 Pt is a 47yo f with PMH of COPD, asthma and schizophrenia BIBA for SOB. Pt tried 1 treatment of duoneb and 3 puffs of albuterol inhaler and it didn't help. She recieved duoneb and IV steroids by EMS. Pt admits to chest tightness and lightheadedness. Denies recent illnesses, fever, chest pain, abdominal pain , n/v/d. She usually uses 3 pillows to sleep. PCP: none PMH: COPD, asthma, schizophrenia PSH: , cholecystectomy Meds: nebulizer, albuterol, Seroquel, Abilify Social: smokes 2-3 cigarettes/day Allergies: PCN Past History - Past Medical History Allergies/Adverse Reactions: Allergies Allergy/AdvReac Type Severity Reaction Status Date / Time Penicillins Allergy Mild Hives Verified 12/08/17 08:38 Fish Containing Products Allergy Hives Verified 12/08/17 08:38 tomatoes Allergy Hives Uncoded 12/08/17 08:21 Home Medications: Ambulatory Orders Aripiprazole [Abilify -] 15 mg PO DAILY 09/18/11 Quetiapine Fumarate [Seroquel -] 200 mg PO HS 09/18/11 Budesonide/Formeterol Fumarate [SYMBICORT 80/4.5mcg -] 2 puff IH BID #1 inhaler 05/07/16 Albuterol 0.083% Nebulizer Abby [Ventolin 0.083% Nebulizer Soln -] 1 neb NEB Q4H #25 vial 10/29/16 Albuterol Sulfate Inhaler - [Ventolin HFA Inhaler -] 1 - 2 inh PO Q4H #1 inhaler 04/30/17 Prednisone [Deltasone] 40 mg PO DAILY 4 Days #8 tablet 11/20/17 Anemia: Yes (NO TREATMENT) Asthma: Yes (ON MDI) Cancer: No Cardiac Disorders: No CVA: No COPD: Yes CHF: No Dementia: No Diabetes: No GI Disorders: No Disorders: No HTN: No Hypercholesterolemia: No Kidney Stones: Yes (2013) Liver Disease: No Psychiatric Problems: Yes (schizophrenia) Seizures: No Thyroid Disease: No - Surgical History Abdominal Surgery: Yes (Sx for twisted intestine in 2003) Appendectomy: No Cardiac Surgery: No Cholecystectomy: Yes (in 2003) Lung Surgery: No Neurologic Surgery: No Orthopedic Surgery: No - Reproductive History PID: No - Immunization History Immunization Up to Date: Yes - Suicide/Smoking/Psychosocial Hx Smoking History: Unknown if ever smoked Have you smoked in the past 12 months: Yes Number of Cigarettes Smoked Daily: 10 Cigars Per Day: 0 Information on smoking cessation initiated: No 'Breaking Loose' booklet given: 07/08/16 Hx Alcohol Use: No Drug/Substance Use Hx: No Substance Use Type: Alcohol, Cocaine, Marijuana Hx Substance Use Treatment: Yes ([facility]) Review of Systems - Review of Systems Constitutional: No: Chills, Fever HEENTM: No: Symptoms Reported, Throat Pain Respiratory: Yes: Cough, Shortness of Breath. No: Hemoptysis Cardiac (ROS): Yes: Lightheadedness, Chest Tightness. No: Chest Pain, Palpitations, Syncope ABD/GI: No: Constipated, Diarrhea, Nausea, Vomiting, Abdominal cramping : No: Symptoms Reported Musculoskeletal: No: Symptoms Reported Neurological: No: Headache, Numbness, Paresthesia, Tingling, Tremors *Physical Exam - Vital Signs Last Vital Signs Temp Pulse Resp BP Pulse Ox 97.9 F 90 16 106/82 100 12/08/17 08:20 12/08/17 08:20 12/08/17 08:20 12/08/17 08:20 12/08/17 09:26 - Physical Exam General Appearance: Yes: Appropriately Dressed, Moderate Distress, Obese HEENT: positive: EOMI, RALPH, Pharynx Normal. negative: Pale Conjunctivae, Scleral Icterus (R), Scleral Icterus (L) Neck: positive: Trachea midline, Supple. negative: Lymphadenopathy (R), Lymphadenopathy (L) Respiratory/Chest: positive: Rhonchi (in both lung romero bilaterally) Cardiovascular: positive: Regular Rhythm, Regular Rate, Other (could not properly auscultate due to rhonchi) Vascular Pulses: Carotid (R): 2+, Carotid (L): 2+, Dorsalis-Pedis (R): 2+, Doralis-Pedis (L): 2+ Gastrointestinal/Abdominal: positive: Normal Bowel Sounds, Soft. negative: Distended, Guarding, Rebound, Tenderness Musculoskeletal: positive: Normal Inspection Extremity: positive: Normal Capillary Refill. 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, Fully Oriented, Alert, Normal Mood/ Affect, Normal Response, Motor Strength 06/21 ED Treatment Course - LABORATORY CBC & Chemistry Diagram: 12/08/17 09:15 12/08/17 09:15 - ADDITIONAL ORDERS Additional order review: Laboratory Results 12/08/17 09:15 VBG pH 7.44 H POC VBG pCO2 40.2 POC VBG pO2 14.7 L* Mixed VBG HCO3 26.5 H 12/08/17 09:15 RBC 4.96 MCV 68.3 L MCHC 31.1 L RDW 23.4 H MPV 8.8 Neutrophils % 45.4 D Lymphocytes % 31.8 D Monocytes % 8.0 Eosinophils % 14.2 H D Basophils % 0.6 - Medications Given in the ED: ED Medications Discontinued Medications Generic Name Dose Route Start Last Admin Trade Name Freq PRN Reason Stop Dose Admin Albuterol/Ipratropium 1 amp 12/08/17 08:48 12/08/17 09:17 Duoneb - NEB 12/08/17 08:49 1 amp ONCE ONE Administration Albuterol/Ipratropium 1 amp 12/08/17 08:57 12/08/17 09:17 Duoneb - NEB 12/08/17 08:58 1 amp ONCE ONE Administration Magnesium Sulfate 2 gm 12/08/17 08:56 12/08/17 09:17 Magnesium Sulfate IVPB 12/08/17 08:57 2 gm ONCE ONE Administration Medical Decision Making - Medical Decision Making 12/08/17 09:39 Pt is a 47yo f with PMH of COPD, asthma, schizophrenia presenting to ED with complaints of SOB this AM. Pt had 1 tx of nebulizer and 3 albuterol. EMS gave nebulizer and IV steroids Vitals: wnl, saturating 100% RA PE: bilateral rhonchi DDx: COPD/asthma exacerbation, CHF, PNA, PE, Higher suspicion for COPD exacerbation given pt history. Will order cbc, cmp, trop, vbg, ekg, cxr. Pt will be given 3 doses of duoneb, given 2mg Mag. Will reevaluate 12/08/17 10:27 Upon reevaluation, pt eating in bed. reports still feeling "tight'. Will order another duoneb making total ED dose 3. Labs: wnl. VBG shows pO2 at 14. EKG: nsr. no shayan or depressions, no inverted t waves. waiting for CXR 12/08/17 11:31 CXR unremarkable, no evidence of pulmonary disease. auscultation of lungs is less rhoncherous(?), expiratory wheezes. Pt feels "tight". will give stacked duonebs and reassess. 12/08/17 13:21 Pt still feels short of breath. Will admit for copd exacerbation. Pt admitted to Dr. Rodriguez *DC/Admit/Observation/Transfer Diagnosis at time of Disposition: COPD exacerbation - Discharge Dispostion Decision to Admit order: Yes - Referrals - Patient Instructions - Post Discharge Activity
--- NOTE | 2017-12-08 09:51 | PDOC ---
Attending Attestation - Resident Resident Name: Dee Dee Eckert - ED Attending Attestation I have performed the following: I have examined & evaluated the patient, The case was reviewed & discussed with the resident, I agree w/resident's findings & plan, Exceptions are as noted - HPI HPI: 12/08/17 09:49 47 F with h/o schizophrenia, COPD, and asthma presenting with SOB. States this feels like her previous COPD flares. Denies CP. Denies F/C. Denies leg swelling. No recent travel/immobilization. - Physicial Exam PE: 12/08/17 09:50 GENERAL: Awake, alert, and fully oriented, in no acute distress. HEAD: No signs of trauma EYES: PERRLA, EOMI, sclera anicteric, conjunctiva clear ENT: Auricles normal inspection, hearing grossly normal, nares patent, oropharynx clear without exudates. Moist mucosa NECK: Nontender, no stepoffs, Normal ROM, supple, no lymphadenopathy, JVD, or masses LUNGS: + diffuse rhonchi + wheezes HEART: Regular rate and rhythm, normal S1 and S2, no murmurs, rubs or gallops ABDOMEN: Soft, nontender, normoactive bowel sounds. No guarding, no rebound. No masses EXTREMITIES: Normal range of motion, no edema. No clubbing or cyanosis. No cords, erythema, or tenderness NEUROLOGICAL: Cranial nerves II through XII intact. 5/5 strength and sensation in all extremities, Normal speech, normal gait, normal cerebellar function SKIN: Warm, Dry, normal turgor, no rashes or lesions noted. - Medical Decision Making 12/08/17 09:51 47 F with SOB, wheezing on exam. Likely COPD flare. - Labs - CXR - Nebs, steroids, Mg - Reassess 12/08/17 13:12 Labs wnl CXR clear pt continues to have SOB and wheezing s/p 8 rounds of nebs, steroids, and Mg Will admit for continued treatment of asthma exacerbation
[2017-12-08] MEDS ORDERED: methylPREDNISolone NA SUCC 125 MG/2 ML VIAL IVPUSH ONE (09:52)
[2017-12-08] MEDS ORDERED: methylPREDNISolone NA SUCC 125 MG/2 ML VIAL ONE (10:04)
[2017-12-08 10:08] LABS: ALBUMIN 3.8 g/dl (3.4-5.0); ALK PHOS 49 U/L (45-117); ANION GAP 4 MMOL/L (8-16); BILIRUBIN,TOTAL 0.3 mg/dL (0.2-1); BLOOD UREA NITROGEN 12 mg/dL (7-18); CALCIUM 8.5 mg/dL (8.5-10.1); CHLORIDE 111 mmol/L (98-107); CO2 27 mmol/L (21-32); CREATININE 0.8 mg/dL (0.55-1.3); GLUCOSE,RANDOM 88 mg/dL (74-106); POTASSIUM 3.8 mmol/L (3.5-5.1); SGOT/AST 10 U/L (15-37); SGPT/ALT 14 U/L (13-61); SODIUM 142 mmol/L (136-145); TOT PROT 6.8 g/dl (6.4-8.2)
[2017-12-08 11:04] LABS: ANISOCYTOSIS 2+; MACROCYTOSIS 0; OVALOCYTE 1+; PLATELET ESTIMATE NORMAL; TARGET CELLS 2+
[2017-12-08] MEDS: ALBUTEROL SO4 2.5/IPRATROPIUM 0.5 INH SOL 3 ML VIAL.NEB. NEB SCH ×4 (11:45→12:53)
[2017-12-08] MEDS ORDERED: ACETAMINOPHEN 500 MG TABLET (FP) PO ONE (16:40)
[2017-12-08] MEDS ORDERED: ACETAMINOPHEN 325 MG TABLET (FP) ONE (16:42)
--- NOTE | 2017-12-08 19:56 | HP ---
Admitting History and Physical - Primary Care Physician PCP: Jeremiah Rodriguez - Admission History of Present Illness: 47yo f with PMH of COPD, asthma and schizophrenia BIBA for SOB. Pt tried 1 treatment of duoneb and 3 puffs of albuterol inhaler and it didn't help. She recieved duoneb and IV steroids by EMS. Pt admits to chest tightness and lightheadedness. Denies recent illnesses, fever, chest pain, abdominal pain, n/v /d. She usually uses 3 pillows to sleep. - Past Medical History Pulmonary: Yes: Asthma ...LMP: 02/12/16 Psych: Yes: Schizophrenia - Smoking History Smoking history: Unknown if ever smoked Have you smoked in the past 12 months: Yes Aproximately how many cigarettes per day: 10 - Alcohol/Substance Use Hx Alcohol Use: No Home Medications - Allergies Allergies/Adverse Reactions: Allergies Allergy/AdvReac Type Severity Reaction Status Date / Time Penicillins Allergy Mild Hives Verified 12/08/17 08:38 Fish Containing Products Allergy Hives Verified 12/08/17 08:38 tomatoes Allergy Hives Uncoded 12/08/17 08:21 - Home Medications Home Medications: Ambulatory Orders Aripiprazole [Abilify -] 15 mg PO DAILY 09/18/11 Quetiapine Fumarate [Seroquel -] 200 mg PO HS 09/18/11 Budesonide/Formeterol Fumarate [SYMBICORT 80/4.5mcg -] 2 puff IH BID #1 inhaler 05/07/16 Albuterol 0.083% Nebulizer Abby [Ventolin 0.083% Nebulizer Soln -] 1 neb NEB Q4H #25 vial 10/29/16 Albuterol Sulfate Inhaler - [Ventolin HFA Inhaler -] 1 - 2 inh PO Q4H #1 inhaler 04/30/17 Prednisone [Deltasone] 40 mg PO DAILY 4 Days #8 tablet 11/20/17 Oxycodone HCl/Acetaminophen [Percocet 10-325 mg Tablet] 1 each PO Q8H PRN Prednisone 10 mg PO ASDIR #30 tablet 12/11/17 Tiotropium [place] [Spiriva Respimat] 2 puff IH DAILY #1 inhaler 12/11/17 Family Disease History - Family Disease History Family Disease History: Heart Disease: Mother (), CA: Father () Physical Examination Vital Signs: Vital Signs Temperature 97.8 F 12/08/17 15:21 Pulse Rate 82 12/08/17 18:29 Respiratory Rate 18 12/08/17 18:29 Blood Pressure 115/46 L 12/08/17 18:07 O2 Sat by Pulse Oximetry (%) 99 12/08/17 15:21 HENT: Yes: Atraumatic Neck: Yes: Supple Cardiovascular: Yes: Regular Rate and Rhythm Respiratory: Yes: Rhonchi Gastrointestinal: Yes: Normal Bowel Sounds Extremities: Yes: WNL Edema: No Peripheral Pulses WNL: Yes Neurological: Yes: Alert, Oriented Labs: CBC, BMP 12/08/17 09:15 12/08/17 09:15 Imaging - Results X-ray: Report Reviewed Problem List - Problems (1) COPD exacerbation Assessment/Plan: duo nebs iv steroids Code(s): J44.1 - CHRONIC OBSTRUCTIVE PULMONARY DISEASE W (ACUTE) EXACERBATION (2) Chronic pain Assessment/Plan: prn pain meds Code(s): G89.29 - OTHER CHRONIC PAIN (3) Anxiety Assessment/Plan: continue home meds Code(s): F41.9 - ANXIETY DISORDER, UNSPECIFIED Assessment/Plan Laboratory Tests 12/08/17 12/08/17 12/08/17 09:15 09:15 09:15 WBC 5.9 RBC 4.96 Hgb 10.5 L Hct 33.9 D MCV 68.3 L MCH 21.2 L D MCHC 31.1 L RDW 23.4 H Plt Count 313 MPV 8.8 Absolute Neuts (auto) 2.7 Neutrophils % 45.4 D Lymphocytes % 31.8 D Monocytes % 8.0 Eosinophils % 14.2 H D Basophils % 0.6 Nucleated RBC % 0 Hypochromia 0 Platelet Estimate Normal Polychromasia 0 Poikilocytosis 2+ Anisocytosis 2+ Microcytosis 2+ Macrocytosis 0 Target Cells 2+ Ovalocytes 1+ Stomatocytes 2+ Schistocytes 2+ VBG pH 7.44 H POC VBG pCO2 40.2 POC VBG pO2 14.7 L* Mixed VBG HCO3 26.5 H Sodium 142 Potassium 3.8 Chloride 111 H Carbon Dioxide 27 Anion Gap 4 L BUN 12 Creatinine 0.8 Creat Clearance w eGFR > 60 Random Glucose 88 Calcium 8.5 Total Bilirubin 0.3 AST 10 L ALT 14 Alkaline Phosphatase 49 Troponin I < 0.02 Total Protein 6.8 Albumin 3.8 Serum , Qual 12/08/17 09:15 WBC RBC Hgb Hct MCV MCH MCHC RDW Plt Count MPV Absolute Neuts (auto) Neutrophils % Lymphocytes % Monocytes % Eosinophils % Basophils % Nucleated RBC % Hypochromia Platelet Estimate Polychromasia Poikilocytosis Anisocytosis Microcytosis Macrocytosis Target Cells Ovalocytes Stomatocytes Schistocytes VBG pH POC VBG pCO2 POC VBG pO2 Mixed VBG HCO3 Sodium Potassium Chloride Carbon Dioxide Anion Gap BUN Creatinine Creat Clearance w eGFR Random Glucose Calcium Total Bilirubin AST ALT Alkaline Phosphatase Troponin I Total Protein Albumin Serum , Qual Negative
[2017-12-08] MEDS ORDERED: ALBUTEROL SO4 2.5/IPRATROPIUM 0.5 INH SOL 3 ML VIAL.NEB. NEB PRN (19:57)
[2017-12-08 20:07] VITALS: BMI 44.7
[2017-12-08] MEDS: BUDESONIDE/FORMETEROL FUMARATE 80/4.5 mcg INHALER IH SCH (21:29)
[2017-12-08] MEDS ORDERED: QUEtiapine FUMARATE 100 MG TABLET (FP) PO SCH (22:00)
[2017-12-09] MEDS: methylPREDNISolone NA SUCC 40 MG/1 ML VIAL IVPUSH SCH ×3 (03:00→17:16)
[2017-12-09] MEDS ORDERED: PT OWN MED DRAWER 7, Y5N ONE ×3 (06:53→21:03)
[2017-12-09] MEDS: BUDESONIDE/FORMETEROL FUMARATE 80/4.5 mcg INHALER IH SCH ×2 (10:12→22:12)
[2017-12-09] MEDS: ARIPiprazole 15 MG TABLET PO SCH (10:12)
--- NOTE | 2017-12-09 11:58 | CONSULT ---
Consultation: REQUESTING PROVIDER: Dr. Rodriguez CONSULT REQUEST: We have been asked to medically evaluate this patient for pulmonology evaluation of asthma/COPD exacerbation. HISTORY OF PRESENT ILLNESS: 47 yo Female with PMH of COPD/Asthma and Schizophrenia admitted following acute exacerbation of SOB upon awakening, not resolved with Albuterol NEB and Albuterol inhaler. Pt states that she woke up with severe SOB, chest tightness, and cough. She tried to use one of her NEBs which did not resolve her symptoms in addition to 3 puffs of her albuterol inhaler. At that time she went to the ED. She denies any recent fever, cough, or cold symptoms of any kind. She states that she needs evaluation in the ED and steroid tapers every month or two , though she is not on chronic systemic steroids. She does not have a primary care physician or cashier parking lot and her asthma is treated as she has exacerbations and presents to the ED. Her asthma was diagnosed at age 17. This morning she is still considerably SOB with a nonproductive cough. Pt states she has difficulty ambulating to the bathroom without worsening SOB and dyspnea. Social history: every day smoker, trying to quit, down to 3 cigarettes per day from 1ppd for since age 14, social alcohol use, denies drug use Family History: Positive for COPD in her mother secondary to cigarette smoking REVIEW OF SYSTEMS: CONSTITUTIONAL: Absent: fever, chills, diaphoresis, generalized weakness, malaise, loss of appetite, weight change HEENT: Absent: rhinorrhea, nasal congestion, throat pain, throat swelling, difficulty swallowing, mouth swelling, ear pain, eye pain, visual changes CARDIOVASCULAR: Absent: chest pain, syncope, palpitations, irregular heart rate, lightheadedness , peripheral edema RESPIRATORY: cough, shortness of breath, dyspnea with exertion, wheezing Absent: orthopnea, , stridor, hemoptysis GASTROINTESTINAL: Absent: abdominal pain, abdominal distension, nausea, vomiting, diarrhea, constipation, melena, hematochezia GENITOURINARY: Absent: dysuria, frequency, urgency, hesitancy, hematuria, flank pain, genital pain MUSCULOSKELETAL: Absent: myalgia, arthralgia, joint swelling, back pain, neck pain SKIN: Absent: rash, itching, pallor HEMATOLOGIC/IMMUNOLOGIC: Absent: easy bleeding, easy bruising, lymphadenopathy, frequent infections ENDOCRINE: Absent: unexplained weight gain, unexplained weight loss, heat intolerance, cold intolerance NEUROLOGIC: Absent: headache, focal weakness or paresthesias, dizziness, unsteady gait, seizure, mental status changes, bladder or bowel incontinence PSYCHIATRIC: Absent: anxiety, depression, suicidal or homicidal ideation, hallucinations. PHYSICAL EXAMINATION Vital Signs - 24 hr 12/08/17 12/08/17 12/08/17 15:21 18:07 18:29 Temperature 97.8 F Pulse Rate Pulse Rate [ 107 H 82 Right Radial] Respiratory 18 18 Rate Blood Pressure Blood Pressure 97/50 L 115/46 L [Left Arm] O2 Sat by Pulse 99 Oximetry (%) 12/08/17 12/08/17 12/09/17 20:01 20:18 06:00 Temperature 98 F 98.7 F Pulse Rate 90 95 H Pulse Rate [ Right Radial] Respiratory 20 20 21 H Rate Blood Pressure 119/67 118/81 Blood Pressure [Left Arm] O2 Sat by Pulse 97 Oximetry (%) 12/09/17 12/09/17 08:53 10:00 Temperature 98.1 F 98.1 F Pulse Rate 84 89 Pulse Rate [ Right Radial] Respiratory 20 20 Rate Blood Pressure 125/80 120/65 Blood Pressure [Left Arm] O2 Sat by Pulse Oximetry (%) GENERAL: A&O, mild distress HEAD: Normocephalic, atraumatic. EYES: PERRL, no scleral icterus EARS, NOSE, THROAT: oropharynx clear without exudates. Moist mucous membranes. NECK: supple without lymphadenopathy LUNGS: Tachypnic, inspiratory and expiratory wheezes, decreased breath sounds HEART: Tachycardic, regular rhythm, normal S1 and S2 without murmur ABDOMEN: Soft, nontender to palpation, normoactive bowel sounds Active Medications Generic Name Dose Route Start Last Admin Trade Name Freq PRN Reason Stop Dose Admin Albuterol/Ipratropium 1 amp 12/08/17 19:57 Duoneb - NEB Q4H PRN SHORTNESS OF BREATH Aripiprazole 15 mg 12/09/17 10:00 12/09/17 10:12 Abilify PO 15 mg DAILY JOLANTA Administration Budesonide/Formoterol Fumarate 2 puff 12/08/17 22:00 12/09/17 10:12 Symbicort 80/4.5mcg - IH 2 puff BID JOLANTA Administration Methylprednisolone Sodium Succinate 60 mg 12/09/17 02:00 12/09/17 10:12 Solu-Medrol - IVPUSH 60 mg Q8H-IV JOLANTA Administration Quetiapine Fumarate 200 mg 12/09/17 22:00 Seroquel - PO HS JOLANTA ASSESSMENT/PLAN: 47 yo Female with PMH of COPD/Asthma and Schizophrenia admitted following acute exacerbation of SOB upon awakening, not resolved with Albuterol NEB and Albuterol inhaler. Moderate Chronic Persistent Asthma with acute exacerbation -CXR noted with no evidence of acute pulmonary disease -Albuterol NEBs PRN -SoluMedrol 60 mg IV Q8 (125 mg IV Given in ED) -Symbicort 2 puffs IH BID -Spiriva -Chest CT -Eosinophils 14.2, monitor -Sleep apnea screen -Daily Peak Flow measurements -Pt will need Alpha 1 AT, IgE, formal PFTs as outpatient Schizophrenia -Stable on home meds -Seroquel 200 mg PO HS -Abilify 15 mg PO Daily Anemia -Hgb noted at 10.5, MCV 68 -Consider Retics, Iron studies DVT Prophylaxis -Early Ambulation FEN -Fluids: none -Electrolytes: Replete lytes -Nutrition: Regular Diet Dispo: We will continue to follow the patient. Thank you for this consultative opportunity. Visit type - Emergency Visit Emergency Visit: Yes ED Registration Date: 12/08/17 Care time: The patient presented to the Emergency Department on the above date and was hospitalized for further evaluation of their emergent condition. - New Patient This patient is new to me today: Yes Date on this admission: 12/09/17 - Critical Care Critical Care patient: No
--- NOTE | 2017-12-09 12:57 | EKG ---
Test Reason : Blood Pressure : / mmHG Vent. Rate : 085 BPM Atrial Rate : 085 BPM P-R Int : 170 ms QRS Dur : 096 ms QT Int : 398 ms P-R-T Axes : 050 -08 016 degrees QTc Int : 473 ms NORMAL SINUS RHYTHM MINIMAL VOLTAGE CRITERIA FOR LVH, MAY BE NORMAL VARIANT SEPTAL INFARCT , AGE UNDETERMINED ABNORMAL ECG Confirmed by MD FLORA, ERIKA ([id number]) on 12/09/2017 12:56:43 PM Referred By: Confirmed By:ERIKA HINES MD
--- NOTE | 2017-12-09 14:26 | PN ---
Teaching Attending Note Name of Resident: Ignacio Ocampo ATTENDING PHYSICIAN STATEMENT I saw and evaluated the patient. I reviewed the resident's note and discussed the case with the resident. I agree with the resident's findings and plan as documented. PULMONARY IMP CHRONIC PERSISTENT ASTHMA WITH ACUTE EXACERBATION COPD MORBID OBESITY EOSINOPHILIA LIKELY OSAS TOBACCO ABUSE PLAN INHALED BRONCHODILATORS MEDROL O2 NEEDED MONITOR PEAK FLOW LOW DOSE CHEST CT IGE LEVEL OUTPATIENT A1A LEVEL OUTPATIENT PFTS OUTPATIENT SLEEP SCREEN SMOKING CESSATION COUNSELED DR KELLY Problem List - Problems (1) Tobacco abuse Code(s): Z72.0 - TOBACCO USE (2) COPD exacerbation Code(s): J44.1 - CHRONIC OBSTRUCTIVE PULMONARY DISEASE W (ACUTE) EXACERBATION (3) Acute asthma exacerbation Code(s): J45.901 - UNSPECIFIED ASTHMA WITH (ACUTE) EXACERBATION Qualifiers: Asthma severity: mild Asthma persistence: unspecified Qualified Code(s): J45.901 - Unspecified asthma with (acute) exacerbation (4) COPD (chronic obstructive pulmonary disease) Code(s): J44.9 - CHRONIC OBSTRUCTIVE PULMONARY DISEASE, UNSPECIFIED Qualifiers: COPD type: unspecified COPD Qualified Code(s): J44.9 - Chronic obstructive pulmonary disease, unspecified (5) Nicotine dependence Code(s): F17.200 - NICOTINE DEPENDENCE, UNSPECIFIED, UNCOMPLICATED Qualifiers: Nicotine product type: cigarettes Substance use status: uncomplicated Qualified Code(s): F17.210 - Nicotine dependence, cigarettes, uncomplicated (6) Eosinophilia Code(s): D72.1 - EOSINOPHILIA (7) Moderate persistent chronic asthma with acute exacerbation Code(s): J45.41 - MODERATE PERSISTENT ASTHMA WITH (ACUTE) EXACERBATION (8) Morbid obesity Code(s): E66.01 - MORBID (SEVERE) OBESITY DUE TO EXCESS CALORIES (9) Tobacco abuse counseling Code(s): Z71.6 - TOBACCO ABUSE COUNSELING
[2017-12-09] MEDS: TIOTROPIUM BROMIDE 2.5 MCG (SPIRIVA) RESPIMAT INHALER IH SCH (15:51)
--- NOTE | 2017-12-09 17:07 | PN ---
Progress Note, Physician - Current Medication List Current Medications: Active Medications Albuterol Sulfate (Ventolin 0.042trength) -) 1 amp NEB Q4H PRN PRN Reason: SHORT OF BREATH/WHEEZING Aripiprazole (Abilify) 15 mg PO DAILY [facility] Last Admin: 12/09/17 10:12 Dose: 15 mg Budesonide/Formoterol Fumarate (Symbicort 80/4.5mcg -) 2 puff IH BID [facility] Last Admin: 12/09/17 10:12 Dose: 2 puff Methylprednisolone Sodium Succinate (Solu-Medrol -) 60 mg IVPUSH Q8H-IV JOLANTA Last Admin: 12/09/17 10:12 Dose: 60 mg Quetiapine Fumarate (Seroquel -) 200 mg PO HS [facility] Tiotropium [place] (Spiriva Respimat) 2 puff IH DAILY [facility] Last Admin: 12/09/17 15:51 Dose: 2 puff - Objective Vital Signs: Vital Signs Temperature 98.1 F 12/09/17 10:00 Pulse Rate 89 12/09/17 10:00 Respiratory Rate 20 12/09/17 10:00 Blood Pressure 120/65 12/09/17 10:00 O2 Sat by Pulse Oximetry (%) 98 12/09/17 09:00 Constitutional: Yes: No Distress HENT: Yes: Atraumatic Neck: Yes: Supple Cardiovascular: Yes: Regular Rate and Rhythm Respiratory: Yes: Rhonchi, Wheezes Gastrointestinal: Yes: Normal Bowel Sounds Extremities: Yes: WNL Neurological: Yes: Alert, Oriented Labs: CBC, BMP 12/08/17 09:15 12/08/17 09:15 Problem List - Problems (1) COPD exacerbation Assessment/Plan: duo nebs iv steroids Code(s): J44.1 - CHRONIC OBSTRUCTIVE PULMONARY DISEASE W (ACUTE) EXACERBATION
[2017-12-09] MEDS: QUEtiapine FUMARATE 200 MG TABLET PO SCH (22:12)
[2017-12-10 00:02] LABS: URINE APPEARANCE CLEAR; URINE BILIRUBIN NEGATIVE (<2.0 mg/dL); URINE COLOR YELLOW; URINE GLUCOSE (UA) NEGATIVE (NEGATIVE); URINE KETONE TRACE (NEGATIVE); URINE LEUK ESTERASE TRACE (NEGATIVE); URINE NITRITE NEGATIVE (NEGATIVE); URINE PROTEIN NEGATIVE (NEGATIVE); URINE UROBILINOGEN NEGATIVE mg/dL (0.2-1.0)
[2017-12-10 00:14] LABS: EPI CELLS RARE /HPF (FEW); URINE BACTERIA FEW /hpf (NONE SEEN); URINE HYALINE CAST 1 /lpf; URINE MUCUS RARE
[2017-12-10] MEDS: methylPREDNISolone NA SUCC 40 MG/1 ML VIAL IVPUSH SCH ×3 (01:46→17:15)
--- NOTE | 2017-12-10 09:06 | PN ---
Physical Exam: SUBJECTIVE: Patient seen and examined OBJECTIVE: Vital Signs Period Temp Pulse Resp BP Sys/Herrera Pulse Ox Last 24 Hr 98.1 F-98.7 F 73-89 20-21 120-136/65-80 98 GENERAL: The patient is awake, alert, and fully oriented, in no acute distress. HEAD: Normal with no signs of trauma. EYES: PERRL, extraocular movements intact, sclera anicteric, conjunctiva clear. No ptosis. ENT: Ears normal, nares patent, oropharynx clear without exudates, moist mucous membranes. NECK: Trachea midline, full range of motion, supple. LUNGS: Breath sounds equal, clear to auscultation bilaterally, no wheezes, no crackles, no accessory muscle use. HEART: Regular rate and rhythm, S1, S2 without murmur, rub or gallop. ABDOMEN: Soft, nontender, nondistended, normoactive bowel sounds, no guarding, no rebound, no hepatosplenomegaly, no masses. EXTREMITIES: 2+ pulses, warm, well-perfused, no edema. NEUROLOGICAL: Cranial nerves II through XII grossly intact. Normal speech, gait not observed. PSYCH: Normal mood, normal affect. SKIN: Warm, dry, normal turgor, no rashes or lesions noted Laboratory Results - last 24 hr 12/08/17 12/09/17 09:15 23:45 VBG pH 7.44 H POC VBG pCO2 40.2 POC VBG pO2 14.7 L* Mixed VBG HCO3 26.5 H Urine Color Yellow Urine Appearance Clear Urine pH 5.0 Ur Specific [place] 1.020 Urine Protein Negative Urine Glucose (UA) Negative Urine Ketones Trace H Urine Blood Negative Urine Nitrite Negative Urine Bilirubin Negative Urine Urobilinogen Negative Ur Leukocyte Esterase Trace Urine WBC (Auto) 20 Urine RBC (Auto) 1 Ur Epithelial Cells Rare Urine Bacteria Few Hyaline Casts 1 Urine Mucus Rare Active Medications Generic Name Dose Route Start Last Admin Trade Name Freq PRN Reason Stop Dose Admin Albuterol Sulfate 1 amp 12/09/17 14:24 Ventolin 0.042trength) - NEB Q4H PRN SHORT OF BREATH/WHEEZING Aripiprazole 15 mg 12/09/17 10:00 12/09/17 10:12 Abilify PO 15 mg DAILY JOLANTA Administration Budesonide/Formoterol Fumarate 2 puff 12/08/17 22:00 12/09/17 22:12 Symbicort 80/4.5mcg - IH 2 puff BID JOLANTA Administration Methylprednisolone Sodium Succinate 60 mg 12/09/17 02:00 12/10/17 01:46 Solu-Medrol - IVPUSH 60 mg Q8H-IV JOLANTA Administration Quetiapine Fumarate 200 mg 12/09/17 22:00 12/09/17 22:12 Seroquel - PO 200 mg HS JOLANTA Administration Tiotropium [place] 2 puff 12/09/17 14:30 12/09/17 15:51 Spiriva Respimat IH 2 puff DAILY JOLANTA Administration ASSESSMENT/PLAN:
[2017-12-10] MEDS ORDERED: PT OWN MED DRAWER 7, Y5N ONE ×2 (09:43→21:06)
[2017-12-10] MEDS: ARIPiprazole 15 MG TABLET PO SCH (10:10)
[2017-12-10] MEDS: TIOTROPIUM BROMIDE 2.5 MCG (SPIRIVA) RESPIMAT INHALER IH SCH (10:11)
[2017-12-10] MEDS: BUDESONIDE/FORMETEROL FUMARATE 80/4.5 mcg INHALER IH SCH ×2 (10:12→21:29)
[2017-12-10] MEDS ORDERED: ALBUTEROL SO4 0.083% IH SOL 2.5 MG/3 ML VIAL.NEB. NEB ONE ×2 (11:25→20:52)
[2017-12-10] MEDS: ALBUTEROL SO4 0.042% IH SOL 1.25 MG/3 ML VIAL.NEB NEB PRN ×2 (11:32→21:04)
[2017-12-10] MEDS: oxyCODONE HCL 5 MG TABLET PO PRN ×2 (12:16→19:15)
--- NOTE | 2017-12-10 13:32 | PN ---
Physical Exam: SUBJECTIVE: Patient seen and examined this AM. She states she is still feeling very SOB on exertion but at rest improves. OBJECTIVE: Vital Signs Period Temp Pulse Resp BP Sys/Ehrrera Pulse Ox Last 24 Hr 98.0 F-98.7 F 73-90 20-21 114-136/73-80 97-98 GENERAL: A&O, mild distress HEAD: Normocephalic, atraumatic. EYES: PERRL, no scleral icterus EARS, NOSE, THROAT: oropharynx clear without exudates. Moist mucous membranes. NECK: supple without lymphadenopathy LUNGS: Tachypnic, audible wheezes noted, inspiratory and expiratory wheezes improving from yesterday, decreased breath sounds HEART: Regular rate and rhythm, normal S1 and S2 without murmur ABDOMEN: Soft, nontender to palpation, normoactive bowel sounds Laboratory Results - last 24 hr 12/08/17 12/09/17 09:15 23:45 VBG pH 7.44 H POC VBG pCO2 40.2 POC VBG pO2 14.7 L* Mixed VBG HCO3 26.5 H Urine Color Yellow Urine Appearance Clear Urine pH 5.0 Ur Specific [place] 1.020 Urine Protein Negative Urine Glucose (UA) Negative Urine Ketones Trace H Urine Blood Negative Urine Nitrite Negative Urine Bilirubin Negative Urine Urobilinogen Negative Ur Leukocyte Esterase Trace Urine WBC (Auto) 20 Urine RBC (Auto) 1 Ur Epithelial Cells Rare Urine Bacteria Few Hyaline Casts 1 Urine Mucus Rare Active Medications Generic Name Dose Route Start Last Admin Trade Name Freq PRN Reason Stop Dose Admin Albuterol Sulfate 1 amp 12/09/17 14:24 12/10/17 11:32 Ventolin 0.042trength) - NEB 1 amp Q4H PRN Administration SHORT OF BREATH/WHEEZING Aripiprazole 15 mg 12/09/17 10:00 12/10/17 10:10 Abilify PO 15 mg DAILY JOLANTA Administration Budesonide/Formoterol Fumarate 2 puff 12/08/17 22:00 12/10/17 10:12 Symbicort 80/4.5mcg - IH 2 puff BID JOLANTA Administration Methylprednisolone Sodium Succinate 60 mg 12/09/17 02:00 12/10/17 10:10 Solu-Medrol - IVPUSH 60 mg Q8H-IV JOLANTA Administration Oxycodone HCl 10 mg 12/10/17 12:04 12/10/17 12:16 Roxicodone - PO 10 mg Q8H PRN Administration PAIN SCALE 5-10 Quetiapine Fumarate 200 mg 12/09/17 22:00 12/09/17 22:12 Seroquel - PO 200 mg HS JOLANTA Administration Tiotropium [place] 2 puff 12/09/17 14:30 12/10/17 10:11 Spiriva Respimat IH 2 puff DAILY JOLANTA Administration ASSESSMENT/PLAN: 47 yo Female with PMH of COPD/Asthma and Schizophrenia admitted following acute exacerbation of SOB upon awakening, not resolved with Albuterol NEB and Albuterol inhaler. Moderate Chronic Persistent Asthma with acute exacerbation -CXR noted with no evidence of acute pulmonary disease -Albuterol NEBs PRN -SoluMedrol 60 mg IV Q8 (125 mg IV Given in ED) -Symbicort 2 puffs IH BID -Spiriva -Chest CT noted with no acute lung pathology -Eosinophils 14.2, monitor -Sleep apnea screen -Daily Peak Flow measurements, 325 pre rx and 350 post rx -Pt will need Alpha 1 AT, IgE, formal PFTs as outpatient Schizophrenia -Stable on home meds -Seroquel 200 mg PO HS -Abilify 15 mg PO Daily Anemia -Hgb noted at 10.5, MCV 68 -Consider Retics, Iron studies DVT Prophylaxis -Early Ambulation FEN -Fluids: none -Electrolytes: Replete lytes -Nutrition: Regular Diet Dispo: We will continue to follow the patient. Thank you for this consultative opportunity. Visit type - Emergency Visit Emergency Visit: Yes ED Registration Date: 12/08/17 Care time: The patient presented to the Emergency Department on the above date and was hospitalized for further evaluation of their emergent condition. - New Patient This patient is new to me today: No - Critical Care Critical Care patient: No
--- NOTE | 2017-12-10 13:35 | PN ---
Teaching Attending Note Name of Resident: Ignacio Ocampo ATTENDING PHYSICIAN STATEMENT I saw and evaluated the patient. I reviewed the resident's note and discussed the case with the resident. I agree with the resident's findings and plan as documented. PULMONARY ALERT,FEELING BETTER,LESS DYSPNEIC,LESS WHEEZES IMP CHRONIC PERSISTENT ASTHMA WITH ACUTE EXACERBATION COPD MORBID OBESITY EOSINOPHILIA LIKELY OSAS TOBACCO ABUSE PLAN INHALED BRONCHODILATORS MEDROL SAME DOSE O2 NEEDED MONITOR PEAK FLOW LOW DOSE CHEST CT IGE LEVEL OUTPATIENT A1A LEVEL OUTPATIENT PFTS OUTPATIENT SMOKING CESSATION COUNSELED DR KELLY Problem List - Problems (1) Tobacco abuse Code(s): Z72.0 - TOBACCO USE (2) COPD exacerbation Code(s): J44.1 - CHRONIC OBSTRUCTIVE PULMONARY DISEASE W (ACUTE) EXACERBATION (3) Acute asthma exacerbation Code(s): J45.901 - UNSPECIFIED ASTHMA WITH (ACUTE) EXACERBATION Qualifiers: Asthma severity: mild Asthma persistence: unspecified Qualified Code(s): J45.901 - Unspecified asthma with (acute) exacerbation (4) COPD (chronic obstructive pulmonary disease) Code(s): J44.9 - CHRONIC OBSTRUCTIVE PULMONARY DISEASE, UNSPECIFIED Qualifiers: COPD type: unspecified COPD Qualified Code(s): J44.9 - Chronic obstructive pulmonary disease, unspecified (5) Nicotine dependence Code(s): F17.200 - NICOTINE DEPENDENCE, UNSPECIFIED, UNCOMPLICATED Qualifiers: Nicotine product type: cigarettes Substance use status: uncomplicated Qualified Code(s): F17.210 - Nicotine dependence, cigarettes, uncomplicated (6) Eosinophilia Code(s): D72.1 - EOSINOPHILIA (7) Moderate persistent chronic asthma with acute exacerbation Code(s): J45.41 - MODERATE PERSISTENT ASTHMA WITH (ACUTE) EXACERBATION (8) Morbid obesity Code(s): E66.01 - MORBID (SEVERE) OBESITY DUE TO EXCESS CALORIES (9) Tobacco abuse counseling Code(s): Z71.6 - TOBACCO ABUSE COUNSELING Problem List - Problems (1) Tobacco abuse Code(s): Z72.0 - TOBACCO USE (2) COPD exacerbation Code(s): J44.1 - CHRONIC OBSTRUCTIVE PULMONARY DISEASE W (ACUTE) EXACERBATION (3) Acute asthma exacerbation Code(s): J45.901 - UNSPECIFIED ASTHMA WITH (ACUTE) EXACERBATION Qualifiers: Asthma severity: mild Asthma persistence: unspecified Qualified Code(s): J45.901 - Unspecified asthma with (acute) exacerbation (4) COPD (chronic obstructive pulmonary disease) Code(s): J44.9 - CHRONIC OBSTRUCTIVE PULMONARY DISEASE, UNSPECIFIED Qualifiers: COPD type: unspecified COPD Qualified Code(s): J44.9 - Chronic obstructive pulmonary disease, unspecified (5) Nicotine dependence Code(s): F17.200 - NICOTINE DEPENDENCE, UNSPECIFIED, UNCOMPLICATED Qualifiers: Nicotine product type: cigarettes Substance use status: uncomplicated Qualified Code(s): F17.210 - Nicotine dependence, cigarettes, uncomplicated (6) Eosinophilia Code(s): D72.1 - EOSINOPHILIA (7) Moderate persistent chronic asthma with acute exacerbation Code(s): J45.41 - MODERATE PERSISTENT ASTHMA WITH (ACUTE) EXACERBATION (8) Morbid obesity Code(s): E66.01 - MORBID (SEVERE) OBESITY DUE TO EXCESS CALORIES (9) Tobacco abuse counseling Code(s): Z71.6 - TOBACCO ABUSE COUNSELING
--- NOTE | 2017-12-10 16:56 | PN ---
Progress Note, Physician History of Present Illness: feeling better - Current Medication List Current Medications: Active Medications Albuterol Sulfate (Ventolin 0.042trength) -) 1 amp NEB Q4H PRN PRN Reason: SHORT OF BREATH/WHEEZING Last Admin: 12/10/17 11:32 Dose: 1 amp Aripiprazole (Abilify) 15 mg PO DAILY [facility] Last Admin: 12/10/17 10:10 Dose: 15 mg Budesonide/Formoterol Fumarate (Symbicort 80/4.5mcg -) 2 puff IH BID [facility] Last Admin: 12/10/17 10:12 Dose: 2 puff Methylprednisolone Sodium Succinate (Solu-Medrol -) 60 mg IVPUSH Q8H-IV JOLANTA Last Admin: 12/10/17 10:10 Dose: 60 mg Oxycodone HCl (Roxicodone -) 10 mg PO Q8H PRN PRN Reason: PAIN SCALE 5-10 Last Admin: 12/10/17 12:16 Dose: 10 mg Quetiapine Fumarate (Seroquel -) 200 mg PO HS [facility] Last Admin: 12/09/17 22:12 Dose: 200 mg Tiotropium [place] (Spiriva Respimat) 2 puff IH DAILY [facility] Last Admin: 12/10/17 10:11 Dose: 2 puff - Objective Vital Signs: Vital Signs Temperature 98.4 F 12/10/17 15:28 Pulse Rate 85 12/10/17 15:28 Respiratory Rate 20 12/10/17 10:00 Blood Pressure 120/63 12/10/17 15:28 O2 Sat by Pulse Oximetry (%) 97 12/10/17 09:00 Constitutional: Yes: No Distress HENT: Yes: Atraumatic Neck: Yes: Supple Cardiovascular: Yes: Regular Rate and Rhythm Respiratory: Yes: Rhonchi Gastrointestinal: Yes: Normal Bowel Sounds Extremities: Yes: WNL Edema: No Peripheral Pulses WNL: Yes Neurological: Yes: Alert, Oriented Labs: CBC, BMP 12/08/17 09:15 12/08/17 09:15 Problem List - Problems (1) COPD exacerbation Assessment/Plan: duo nebs iv steroids doing better Code(s): J44.1 - CHRONIC OBSTRUCTIVE PULMONARY DISEASE W (ACUTE) EXACERBATION
[2017-12-10] MEDS ORDERED: DOCUSATE SODIUM 100 MG CAPSULE (FP) PO PRN (20:33)
[2017-12-10] MEDS: QUEtiapine FUMARATE 200 MG TABLET PO SCH (21:29)
[2017-12-11] MEDS: methylPREDNISolone NA SUCC 40 MG/1 ML VIAL IVPUSH SCH ×4 (01:54→22:12)
[2017-12-11] MEDS: oxyCODONE HCL 5 MG TABLET PO PRN ×3 (06:03→22:22)
[2017-12-11] MEDS ORDERED: PT OWN MED DRAWER 7, Y5N ONE ×4 (09:36→22:10)
[2017-12-11] MEDS: BUDESONIDE/FORMETEROL FUMARATE 80/4.5 mcg INHALER IH SCH ×2 (09:40→22:12)
[2017-12-11] MEDS: TIOTROPIUM BROMIDE 2.5 MCG (SPIRIVA) RESPIMAT INHALER IH SCH (09:40)
[2017-12-11] MEDS: ARIPiprazole 15 MG TABLET PO SCH (09:41)
--- NOTE | 2017-12-11 11:28 | PN ---
Progress Note (short form) - Note Progress Note: PULMONARY States breathing better today but still with cough and wheezing. Peak flow done at bedside 350 which is her best. Vital Signs Period Temp Pulse Resp BP Sys/Herrera Pulse Ox Last 24 Hr 97.5 F-98.8 F 69-85 18-20 120-141/62-81 95 Gen: NAD, seen ambulating Heart: RRR Lung: decreased breath sounds at the bases, no wheezes Abd: soft, nontender Ext: no edema CBC, BMP 12/08/17 09:15 12/08/17 09:15 Active Medications Albuterol Sulfate (Ventolin 0.042trength) -) 1 amp NEB Q4H PRN PRN Reason: SHORT OF BREATH/WHEEZING Last Admin: 12/10/17 21:04 Dose: 1 amp Aripiprazole (Abilify) 15 mg PO DAILY [facility] Last Admin: 12/11/17 09:41 Dose: 15 mg Budesonide/Formoterol Fumarate (Symbicort 80/4.5mcg -) 2 puff IH BID [facility] Last Admin: 12/11/17 09:40 Dose: 2 puff Docusate Sodium (Colace -) 100 mg PO Q12H PRN PRN Reason: CONSTIPATION Methylprednisolone Sodium Succinate (Solu-Medrol -) 40 mg IVPUSH Q8H-IV [facility] Last Admin: 12/11/17 09:39 Dose: 40 mg Oxycodone HCl (Roxicodone -) 10 mg PO Q8H PRN PRN Reason: PAIN SCALE 5-10 Last Admin: 12/11/17 06:03 Dose: 10 mg Quetiapine Fumarate (Seroquel -) 200 mg PO HS [facility] Last Admin: 12/10/17 21:29 Dose: 200 mg Tiotropium [place] (Spiriva Respimat) 2 puff IH DAILY [facility] Last Admin: 12/11/17 09:40 Dose: 2 puff A/P Acute Asthma Exacerbation Morbid Obesity Likely [place] Eosinophilia Smoker - will decrease medrol to q12h - if continues to improve, can likely change steroids to PO prednisone 40mg daily and taper as outpt - monitor peak flow - monitor eosinophilia as outpt - smoking cessation - DVT prophylaxis
--- NOTE | 2017-12-11 18:01 | PN ---
Progress Note, Physician - Current Medication List Current Medications: Active Medications Albuterol Sulfate (Ventolin 0.042trength) -) 1 amp NEB Q4H PRN PRN Reason: SHORT OF BREATH/WHEEZING Last Admin: 12/10/17 21:04 Dose: 1 amp Aripiprazole (Abilify) 15 mg PO DAILY [facility] Last Admin: 12/11/17 09:41 Dose: 15 mg Budesonide/Formoterol Fumarate (Symbicort 80/4.5mcg -) 2 puff IH BID [facility] Last Admin: 12/11/17 09:40 Dose: 2 puff Docusate Sodium (Colace -) 100 mg PO Q12H PRN PRN Reason: CONSTIPATION Methylprednisolone Sodium Succinate (Solu-Medrol -) 40 mg IVPUSH BID [facility] Oxycodone HCl (Roxicodone -) 10 mg PO Q8H PRN PRN Reason: PAIN SCALE 5-10 Last Admin: 12/11/17 14:46 Dose: 10 mg Quetiapine Fumarate (Seroquel -) 200 mg PO HS [facility] Last Admin: 12/10/17 21:29 Dose: 200 mg Tiotropium [place] (Spiriva Respimat) 2 puff IH DAILY [facility] Last Admin: 12/11/17 09:40 Dose: 2 puff - Objective Vital Signs: Vital Signs Temperature 98.7 F 12/11/17 14:00 Pulse Rate 72 12/11/17 14:00 Respiratory Rate 18 12/11/17 14:00 Blood Pressure 132/78 12/11/17 14:00 O2 Sat by Pulse Oximetry (%) 96 12/11/17 09:00 Constitutional: Yes: No Distress HENT: Yes: Atraumatic Neck: Yes: Supple Cardiovascular: Yes: Regular Rate and Rhythm Respiratory: Yes: Rhonchi Gastrointestinal: Yes: Normal Bowel Sounds Extremities: Yes: WNL Neurological: Yes: Alert, Oriented Labs: CBC, BMP 12/08/17 09:15 12/08/17 09:15 Problem List - Problems (1) COPD exacerbation Assessment/Plan: duo nebs iv steroids...taper po from tomorrow doing better Code(s): J44.1 - CHRONIC OBSTRUCTIVE PULMONARY DISEASE W (ACUTE) EXACERBATION
[2017-12-11] MEDS: QUEtiapine FUMARATE 200 MG TABLET PO SCH (22:12)
[2017-12-12] MEDS ORDERED: ZOLPIDEM TARTRATE 5 MG TABLET PO ONE (01:15)
[2017-12-12 07:34] LABS: BASO % 0.3 % (0-2.0); HEMATOCRIT 31.9 % (32.4-45.2); LYMPH % 14.6 % (8-40); MCH 21.1 pg (25.7-33.7); MCHC 31.2 g/dl (32.0-36.0); MEAN CELL VOLUME 67.5 fl (80-96); MEAN PLT VOLUME 8.8 fl (7.5-11.1); MONO % 9.7 % (3.8-10.2); NEUT % 75.4 % (42.8-82.8); PLATELET COUNT 365 K/MM3 (134-434); RBC 4.72 M/mm3 (3.60-5.2); RDW 22.3 % (11.6-15.6); WHITE BLOOD COUNT 9.6 K/mm3 (4.0-10.0)
[2017-12-12 08:25] VITALS: BP 131/76; PULSE 63; TEMP 98.4
[2017-12-12] MEDS ORDERED: PT OWN MED DRAWER 7, Y5N ONE (09:09)
[2017-12-12] MEDS: methylPREDNISolone NA SUCC 40 MG/1 ML VIAL IVPUSH SCH (09:13)
[2017-12-12] MEDS: ARIPiprazole 15 MG TABLET PO SCH (09:13)
[2017-12-12] MEDS: BUDESONIDE/FORMETEROL FUMARATE 80/4.5 mcg INHALER IH SCH (09:14)
[2017-12-12] MEDS: TIOTROPIUM BROMIDE 2.5 MCG (SPIRIVA) RESPIMAT INHALER IH SCH (09:14)
--- NOTE | 2017-12-12 12:23 | DS ---
Physical Examination Vital Signs: Vital Signs Temperature 98.4 F 12/12/17 08:25 Pulse Rate 63 12/12/17 08:25 Respiratory Rate 18 12/12/17 08:25 Blood Pressure 131/76 12/12/17 08:25 O2 Sat by Pulse Oximetry (%) 96 12/11/17 21:00 Labs: CBC, BMP 12/12/17 06:30 12/08/17 09:15 Discharge Summary Reason For Visit: ACUTE EXACERBATION OF CHRONIC PULMONARY DISEASE - Instructions Disposition: HOME - Home Medications Comprehensive Discharge Medication List: Ambulatory Orders Aripiprazole [Abilify -] 15 mg PO DAILY 09/18/11 Quetiapine Fumarate [Seroquel -] 200 mg PO HS 09/18/11 Budesonide/Formeterol Fumarate [SYMBICORT 80/4.5mcg -] 2 puff IH BID #1 inhaler 05/07/16 Albuterol 0.083% Nebulizer [place] [Ventolin 0.083% Nebulizer Soln -] 1 neb NEB Q4H #25 vial 10/29/16 Albuterol Sulfate Inhaler - [Ventolin HFA Inhaler -] 1 - 2 inh PO Q4H #1 inhaler 04/30/17 Prednisone [Deltasone] 40 mg PO DAILY 4 Days #8 tablet 11/20/17 Oxycodone HCl/Acetaminophen [Percocet 10-325 mg Tablet] 1 each PO Q8H PRN Prednisone 10 mg PO ASDIR #30 tablet 12/11/17 Tiotropium [place] [Spiriva Respimat] 2 puff IH DAILY #1 inhaler 12/11/17 ak home
[2017-12-12 12:50] LABS: ANISOCYTOSIS 2+; MACROCYTOSIS 0; OVALOCYTE 2+; PLATELET ESTIMATE NORMAL; TARGET CELLS 1+; TEAR DROP CELLS 1+
== END 2017-12-12 12:05 | disposition home or self-care (01) | DRG 140 ==
LOC: JER 08:17 → JERBED 13:23 → J6S 19:00 → OBSVTOIN 19:58
PROVIDERS: ADMIT Internal Medicine; ATTEND Internal Medicine
PROC: 3E0F7GC Introduction of Other Therapeutic Substance into Respiratory Tract, Via Natural or Artificial Opening (ICD-10-PCS; principal; 2017-12-08)
DX: J44.1 Chronic obstructive pulmonary disease with (acute) exacerbation (principal); D72.1 Eosinophilia; J45.41 Moderate persistent asthma with (acute) exacerbation; E66.01 Morbid (severe) obesity due to excess calories; Z68.41 Body mass index [BMI] 40.0-44.9, adult; F20.9 Schizophrenia, unspecified; R00.0 Tachycardia, unspecified; F17.210 Nicotine dependence, cigarettes, uncomplicated; F12.10 Cannabis abuse, uncomplicated; F14.10 Cocaine abuse, uncomplicated; G89.29 Other chronic pain; F41.9 Anxiety disorder, unspecified; D64.9 Anemia, unspecified; G47.33 Obstructive sleep apnea (adult) (pediatric)
CPT/HCPCS: 36415; 71045-TC-FY; 71250-TC; 80053; 81003; 81015; 82803; 84484; 84703; 85025; 93005; 93010; 94150; 94640; 99282-25; G0378